=== PATIENT | male | born 1960 | race Two or more races ===

== ENCOUNTER 2023-09-28 19:29 | Emergency (ER) | payer MEDICAID, SELFPAY ==
[2023-09-28 19:37] VITALS: BP 160/90; PULSE 62; RESP 20; TEMP 36.9; O2SAT 95; BMI 19.2
--- NOTE | 2023-09-28 19:37 | ED_ITS ---
HPI - SOB/Dyspnea General Chief Complaint: Dyspnea Stated Complaint: sob hx asthma/copd Time Seen by Provider: 09/28/23 20:46 Source: patient Mode of arrival: ambulatory Limitations: no limitations History of Present Illness ED Provider: Dr. Ulises Daniel HPI Narrative: 62-year-old male with a history of COPD who presents emergency department for evaluation of shortness of breath and chest tightness x2 days. The patient states that he feels short of breath at rest and short of breath with exertion. He states that he feels fatigued, he is myalgias and arthralgias. He denied fever, chills, rhinorrhea, sore throat, cough, nausea, vomiting or diarrhea. Patient states that he has been using his inhalers in his nebulizer with only minimal improvement of his symptoms. Patient continues to smoke 3-4 cigarettes per day. Related Data Previous Rx's ?Medication ?Instructions ?Recorded prednisone 20 mg tablet 60 mg (3 x 20 mg) PO DAILY 5 days 09/28/23 #15 tabs Allergies Allergy/AdvReac Type Severity Reaction Status Date / Time No Known Allergies Allergy Verified 09/28/23 19:39 Review of Systems 2 Review of Systems: Yes all other systems are reviewed and are negative [facility] Past Medical History [facility] Narrative: Social history: He smokes 3-4 cigarettes per day. He denies tobacco use. He denies alcohol use. Social History Social History Unable to assess alcohol history related to: Unknown Physical Exam 2 Vital Signs: Vital Signs: Last Vital Signs Temp 98.1 F 09/28/23 20:25 Pulse 59 09/28/23 20:25 Resp 18 09/28/23 20:25 BP 160/89 H 09/28/23 20:25 Pulse Ox 97 09/28/23 20:25 O2 Del Method Room Air 09/28/23 20:25 BMI result Body Mass Index 19.2 Vital signs revealed an elevated blood pressure of 160/89 otherwise unremarkable Exam: General: Awake, alert in no distress Head: Normocephalic, atraumatic EENT: Right eye prosthesis, left eye pupil is 4 mm reactive to light, Lids normal, sclera normal, conjunctiva normal, nose normal , ears normal, throat without erythema or exudates Neck: Supple, no adenopathy Lung: Breath sounds symmetric bilaterally, good inspiratory and expiratory flow, wheezing with expiration, no rales or rhonchi Chest: symmetric movement, nontender Heart: regular rate and rhythm, normal S1, S2 no murmurs or rubs Abdomen: soft, non-tender, nondistended, normal bowel sounds Back: no vertebral tenderness, no CVAT Extremities: no deformities, moves all extremities symmetrically Neuro: Awake, alert, oriented, normal speech, moves all extremities symmetrically Psych: Pleasant, cooperative Course Course Course Narrative: This is a Rapid Medical Examination (RME) performed by Nicho Do PA-C in triage. Full HPI, ROS, assessment and treatment plan per primary provider in the Main ED. 62 yo male with history of asthma/COPD, active smoker who presents to the ER for evaluation of SOB and PND for the last 2 days. Did not sleep last night due to SOB when laying down and trying to fall asleep. Cough productive of white phlegm that is unchanged from baseline. No fever, chills, N/V/D, abdominal pain or chest pain. On exam patient is in no distress, speaking in complete sentences. He has expiratory wheezes at the bilateral bases only. RRR. no peripheral edema. Plan: CXR, EKG, labs, viral swab Medications Administered Discontinued Medications Generic Name Dose Route Start Last Admin Trade Name Freq PRN Reason Stop Dose Admin Prednisone 60 mg 09/28/23 20:56 09/28/23 21:00 Prednisone 20 Mg Tablet PO 09/28/23 20:57 60 mg ONCE ONE Administration Medical Decision Making Medical Decision Making [facility] Narrative: 62-year-old male with history of COPD who presents emergency department for evaluation of 2 days of shortness of breath, chest tightness, fatigue, myalgias, arthralgias, using his nebulizer and albuterol inhaler more frequently with no relief of his symptoms. Vital signs revealed an elevated blood pressure. Physical examination revealed wheezing at end expiration with symmetric breath sounds and good inspiratory and expiratory flow. Differential diagnosis: ?Includes but is not limited to COPD exacerbation, pneumonia, bronchitis, viral syndrome, COVID-19, influenza, RSV Following evaluation was ordered: CBC, CMP, urinalysis, COVID-19, influenza, RSV Patient was initially treated with the following: Prednisone 60 mg orally Course: 21:03 My interpretation patient's laboratory evaluation as follows: CBC was normal. CMP revealed an elevated glucose of 152. COVID-19, influenza and RSV were negative. Urinalysis was negative. Patient's presentation physical findings are consistent with COPD exacerbation most likely secondary to environmental allergy/pollen and recent rain. I did discuss this with the patient. Patient was given prednisone 60 mg orally and started on prednisone 60 mg once a day for 5 days. She was advised to continue using his albuterol inhalers in his other inhalers as prescribed by his provider. He was given printed and verbal instructions discharged home. Admission/Observation Consideration of admission/observation: Escalation of care including admission/observation considered Lab Data MDM Lab Attestation statement: I reviewed the patient's lab results. 09/28/23 19:53 09/28/23 19:53 Labs: Lab Results 09/28/23 09/28/23 Range/Units 19:53 20:33 WBC 6.0 (4.8-10.8) X10*3/uL RBC 4.57 L (4.60-5.80) X10*6/uL Hgb 13.9 L (14.0-18.0) g/dl Hct 40.7 L (42.0-52.0) % MCV 89.1 (80.0-98.0) fL MCH 30.4 (27.0-33.0) pg MCHC 34.2 (31.0-36.0) g/dl RDW 12.7 (11.0-16.0) % Plt Count 199 (160-400) X10*3/uL MPV 9.3 L (9.4-12.4) fL Immature Gran % (Auto) 0.2 (0.0-0.4) % Neut % (Auto) 60.7 (45-73) % Lymph % (Auto) 22.4 (20-40) % [place] % (Auto) 6.0 (2-11) % Eos % (Auto) 10.2 H (0-4) % Baso % (Auto) 0.5 (0-2) % Lymph # (Auto) 1.3 (1.2-4.9) X10*3/uL [place] # (Auto) 0.4 (0.1-1.2) X10*3/uL Eos # (Auto) 0.6 H (0.0-0.4) X10*3/uL Baso # (Auto) 0.0 (0.0-0.2) X10*3/uL Abs Immat Gran (auto) 0.01 (0.00-0.03) X10*3/uL Absolute Neuts (auto) 3.6 (2.0-8.3) x10*3/uL Absolute Nucleated RBC 0.000 (0.0-0.012) X10*3/uL Nucleated RBC % (auto) 0.0 (0.0-0.2) /100WBC Sodium 140 (135-145) mmol/L Potassium 3.4 (3.3-5.1) mmol/L Chloride 109 H (96-108) mmol/L Carbon Dioxide 23 (22-29) mmol/L Anion Gap 11 L (12-20) BUN 12 (9-16) mg/dL Creatinine 0.83 (0.5-1.4) mg/dL Estim Creat Clear Calc 76.1 Estimated GFR > 60 Random Glucose 152 H (60-115) mg/dL Calcium 9.3 (8.4-10.2) mg/dL Magnesium 2.1 (1.6-2.6) mg/dL Total Bilirubin 0.5 (0.0-1.0) mg/dL Direct Bilirubin 0.2 (0.0-0.5) mg/dL AST 33 (5-37) U/L ALT 37 (0-40) U/L Alkaline Phosphatase 86 (39-117) U/L Troponin I High Sens 4.1 (<3.5-35.0) ng/L B-Natriuretic Peptide 53 (<100) pg/mL Total Protein 6.3 L (6.5-8.0) g/dL Albumin 4.0 (3.5-5.0) g/dL Urine Color Yellow Urine Appearance Clear Urine pH 6.0 (5.0-9.0) Ur Specific [place] 1.020 (1.005-1.025) Urine Protein Negative (Neg-Trace) mg/dL Urine Glucose (UA) Negative (Negative) mg/dL Urine Ketones Negative (Negative) mg/dL Urine Blood Negative (Negative) Urine Nitrite Negative (Negative) Ur Leukocyte Esterase Negative (Negative) Influenza Type A (PCR) NEGATIVE (Negative) Influenza Type B (PCR) NEGATIVE (Negative) RSV RNA Qual (PCR) NEGATIVE (Negative) SARS-CoV-2 RNA (RT-PCR) NEGATIVE (Negative) Independent Interpretation I performed an independent interpretation of an: EKG Interpretation: My interpretation patient's 12 EKG done at 19:42 hours is as follows: Normal sinus rhythm rate of 61, normal MS interval, QRS duration elevated at 100, QTC interval normal, no ST segment elevation, no ST segment depression, no significant T-wave abnormalities, R/R prime complex V1 V2 Prescription Management I considered prescription management with: Other (Anti-inflammatory steroids, prednisone) Chronic Conditions Patient?s care impacted by: Other (COPD, tobacco use disorder) Discharge Plan Discharge Clinical Impression: Acute exacerbation of chronic obstructive airways disease Patient Disposition: Home, Self-Care Instructions: COPD (Chronic Obstructive Pulmonary Disease) (ED) Additional Instructions: Your blood work was unremarkable. Your COVID-19, influenza and RSV tests were negative Take prednisone 20 mg pills, 3 pills once a day for 5 days. While you ?are taking prednisone, do not take any NSAIDs (Motrin, Advil, ibuprofen, Aleve, naproxen). Follow-up with your doctor in 2 days. Please return to the emergency department if your symptoms get worse or if you develop any symptoms that are concerning to you. Prescriptions: New prednisone 20 mg tablet 60 mg PO DAILY 5 Days Qty: 15 0RF
--- NOTE | 2023-09-28 19:40 | ECG_ITS ---
Test Reason : DYSPNEA Blood Pressure : / mmHG Vent. Rate : 061 BPM Atrial Rate : 061 BPM P-R Int : 148 ms QRS Dur : 100 ms QT Int : 416 ms P-R-T Axes : 025 077 074 degrees QTc Int : 418 ms Normal sinus rhythm Incomplete right bundle branch block Borderline ECG No previous ECGs available Referred By: Yasemin Do Electronically Signed By:ARLENE SANDHU MD
[2023-09-28 19:58] LABS: MANUAL DIFF FLAG NO
[2023-09-28 20:00] LABS: Basophils Percent Auto 0.5 % (0-2); Eosinophils Absolute Auto 0.6 X10*3/uL (0.0-0.4); Eosinophils Percent Auto 10.2 % (0-4); Hematocrit 40.7 % (42.0-52.0); Hemoglobin 13.9 g/dl (14.0-18.0); Imm Gran Abs Auto 0.01 X10*3/uL (0.00-0.03); Imm Gran Pct Auto 0.2 % (0.0-0.4); Lymphocytes Absolute Auto 1.3 X10*3/uL (1.2-4.9); Lymphocytes Percent Auto 22.4 % (20-40); Mean Corpuscular HGB Conc 34.2 g/dl (31.0-36.0); Mean Corpuscular Hemoglobin 30.4 pg (27.0-33.0); Mean Corpuscular Volume 89.1 fL (80.0-98.0); Mean Platelet Volume 9.3 fL (9.4-12.4); Monocytes Absolute Auto 0.4 X10*3/uL (0.1-1.2); Neutrophils Absolute Auto 3.6 x10*3/uL (2.0-8.3); Neutrophils Percent Auto 60.7 % (45-73); Platelet Count 199 X10*3/uL (160-400); Red Blood Count 4.57 X10*6/uL (4.60-5.80); Red Cell Distribution Width 12.7 % (11.0-16.0)
[2023-09-28 20:19] LABS: Alanine Aminotransferase 37 U/L (0-40); Alkaline Phosphatase 86 U/L (39-117); Anion Gap 11 (12-20); Aspartate Amino Transferase 33 U/L (5-37); Bilirubin Direct 0.2 mg/dL (0.0-0.5); Bilirubin Total 0.5 mg/dL (0.0-1.0); Blood Urea Nitrogen 12 mg/dL (9-16); Calcium 9.3 mg/dL (8.4-10.2); Carbon Dioxide 23 mmol/L (22-29); Chloride 109 mmol/L (96-108); Creatinine Clr Calc Pharmacy 76.1; Estimated Glomerular Filt Rate > 60; Glucose Random 152 mg/dL (60-115); Magnesium 2.1 mg/dL (1.6-2.6); Potassium 3.4 mmol/L (3.3-5.1); Sodium 140 mmol/L (135-145); Total Protein 6.3 g/dL (6.5-8.0)
[2023-09-28 20:21] LABS: B Type Natriuretic Peptide 53 pg/mL (<100)
[2023-09-28 20:25] VITALS: BP 160/89; PULSE 59; RESP 18; TEMP 36.7; O2SAT 97
[2023-09-28 20:25] LABS: Troponin-I High Sensitivity 4.1 ng/L (<3.5-35.0)
[2023-09-28 20:38] LABS: Influenza A PCR NEGATIVE (Negative); Influenza B PCR NEGATIVE (Negative); Resp Syncy Virus RNA Qual PCR NEGATIVE (Negative); SARS COV2 PCR INHOUSE NEGATIVE (Negative)
[2023-09-28 20:41] LABS: Appearance Urine Clear; Color Urine Yellow; Glucose Urine UA Negative (Negative); Leukocyte Esterase Urine Negative (Negative); Nitrite Urine Negative (Negative); Urine Blood Negative (Negative); Urine Ketones Negative (Negative); Urine Protein Negative (Neg-Trace)
[2023-09-28] MEDS: predniSONE 20 MG TABLET 60 MG PO (21:00)
[2023-09-28 21:02] VITALS: BP 160/89; PULSE 59; RESP 18; TEMP 36.7; O2SAT 97
== END 2023-09-28 21:11 | disposition home or self-care (01) ==
LOC: HO.ED 21:07
PROVIDERS: Physician Assistant; Emergency Provider Emergency Medicine Emergency Medical Services; PCP Physician Assistant
DX: J44.1 Chronic obstructive pulmonary disease with (acute) exacerbation (principal); R06.02 Shortness of breath; R05.9 Cough, unspecified; F17.210 Nicotine dependence, cigarettes, uncomplicated; Z03.818 Encounter for observation for suspected exposure to other biological agents ruled out
CPT/HCPCS: 0241U; 36415; 80048; 80076; 81003; 83735; 83880; 84484; 85025; 93005; 99283; 99284

== ENCOUNTER → 2023-09-28 19:40 | Outpatient (BNV) | payer MEDICAID, SELFPAY | PROVIDERS: Emergency Provider Emergency Medicine Emergency Medical Services; PCP Physician Assistant; Visit Provider Internal Medicine Cardiovascular Disease | DX: R06.09 Other forms of dyspnea (principal); I45.19 Other right bundle-branch block; R94.31 Abnormal electrocardiogram [ECG] [EKG] | CPT/HCPCS: 93010 ==

== ENCOUNTER 2023-11-19 06:46 | Emergency (ER) | payer MEDICAID, SELFPAY ==
--- NOTE | ~2023-11-19 | XR_ITS ---
EXAMINATION: XR CHEST CLINICAL INFORMATION: Shortness of breath COMPARISON: None available. TECHNIQUE: 2 views of the chest were obtained. FINDINGS: vascularity. LUNGS: Lungs are hyperinflated. A tiny teardrop shaped subtle density is seen in lateral left lung base. No pneumothorax is seen. BONES: Bony skeleton is intact. XR/XR chest 2V IMPRESSION: 1. Hyperinflation of lungs, suggestive of emphysematous COPD. 2. Tiny teardrop shaped subtle density in lateral left lung base, may represent focal airspace disease or lung nodule. Follow-up PA and lateral chest x-ray in 2-3 weeks is recommended.
[2023-11-19 06:50] VITALS: BP 149/101; PULSE 82; RESP 22; TEMP 36.8; O2SAT 95; BMI 18.8
--- NOTE | 2023-11-19 07:05 | PC.NURSE ---
Pt reports SOB since Saturday worsening, has hx of asthma/COPD, used inhalers/neb at home with minimal relief. Denies fevers, N/V/D, recent illnesses. Reports right shoulder area pain that started this weekend after sweeping floor, hurts on movement. Alert and oriented, breathing even and unlabored while at rest in bed. NSR on bedside private wealth advisor, >94% sat. LS diminished with inspiratory wheeze bilat.
--- NOTE | 2023-11-19 07:11 | ED_ITS ---
HPI - SOB/Dyspnea General Chief Complaint: Dyspnea Stated Complaint: Asthma/Copd sob Time Seen by Provider: 11/19/23 07:10 Source: patient Mode of arrival: ambulatory Limitations: no limitations History of Present Illness ED Provider: DR. Anderson HPI Narrative: 63-year-old male active smoker with history of asthma/COPD not on home supplemental oxygen, presented today with difficulty breathing and chest tightness for the past few days associated with productive with clear sputum, no known exposure to a sick contacts, travel, extremity tenderness, no history of PE/DVT. Patient have used his bronchodilator at with no relief of his symptoms. Patient has no chest pain but describes diffuse chest tightness. No fever or chills. Related Data Previous Rx's ?Medication ?Instructions ?Recorded prednisone 20 mg tablet 60 mg (3 x 20 mg) PO DAILY 5 days 09/28/23 #15 tabs albuterol sulfate 2.5 mg/3 mL 2.5 mg (3 mL) inhalation Q6H PRN 11/19/23 (0.083 %) solution for nebulization shortness of breath or wheezing #75 mL albuterol sulfate 90 mcg/actuation 1 inh inhalation QID PRN shortness 11/19/23 aerosol inhaler of breath or wheezing #8.5 grams azithromycin 250 mg tablet See Rx Instructions PO .COMPLEX #6 11/19/23 (Zithromax Z-Isai) tabs prednisone 20 mg tablet 20 mg PO BID #10 tabs 11/19/23 Allergies Allergy/AdvReac Type Severity Reaction Status Date / Time No Known Allergies Allergy Verified 11/19/23 06:50 Review of Systems 2 Review of Systems: All other systems are reviewed and are negative Constitutional: Reports as per HPI and Reports no additional constitutional complaints Eyes: Reports as per HPI and Reports no additional eye complaints Reports system reviewed and no additional complaints, except as documented Cardiovascular: Reports as per HPI and Reports no additional cardiovascular complaints Respiratory: Reports as per HPI and Reports no additional respiratory complaints Gastrointestinal: Reports as per HPI and Reports no additional gastrointestinal complaints Genitourinary: Reports no additional female genitourinary complaints Musculoskeletal: Reports no additional musculoskeletal complaints Skin/Breast: Reports system reviewed and no additional complaints, except as docu Psychiatric: Reports no additional psychiatric complaints Endocrine: Reports no additional endocrine complaints Hematologic/Lymphatic: Reports no additional hematologic/lymphatic complaints Allergic/Immunologic: Reports no additional allergic/immunologic complaints Reports system reviewed and no additional complaints, except as documented and Reports Abnormal speech present [facility] Social History Social History Unable to assess alcohol history related to: Unknown Smoked in Last 30 Days: Yes Use of substances other than those prescribed or required for medical reasons: No Advance Directives: No Physical Exam 2 Vital Signs: Vital Signs: Last Vital Signs Temp 98.5 F 11/19/23 08:08 Pulse 63 11/19/23 08:14 Resp 12 11/19/23 08:14 BP 172/88 H 11/19/23 08:08 Pulse Ox 96 11/19/23 08:08 O2 Del Method Room Air 11/19/23 08:08 BMI result Body Mass Index 18.8 Vital signs have been reviewed and appear to be correct. Blood pressure elevated. Heart rate normal. Respiratory rate normal. Temperature normal. Oxygen saturation normal. Appearance: Alert. Oriented X3. No acute distress. Head: Normal external exam. Normocephalic. Atraumatic. No Mont[place]ayor signs noted. No raccoon eyes noted Eyes: PERRLA. EOMI. Conjunctiva and sclera normal. Eyelids normal. ENT: TM's Normal. Pharynx normal. Uvula midline. Moist mucous membranes. No trismus noted. No drooling noted. No muffled voice noted. Neck: Normal inspection. Neck supple. FROM. No adenopathy. Thyroid Normal. No meningeal signs. No neck mass noted. CVS: Normal heart rate and rhythm. Heart sound normal. No murmurs noted. Pulses normal throughout. Respiratory: No respiratory distress. Painless inspiration. Breath sounds normal. Diffuse expiratory wheezing with prolonged expiration Chest nontender. No accessory muscle usage noted or decreased air movement noted. Abdomen: Soft and nontender. Bowel sounds normal in all 4 quadrants. No distention noted. No organomegaly noted. No visible injury noted. Back: No CVA tenderness. Full range of motion noted. Skin: Skin warm and dry. Normal skin color. Normal skin turgor. No rashes/lesions/lacerations noted. Extremities: No lower extremity edema. Extremities exhibit normal range of motion. Extremities nontender. Neuro: Oriented X 3. Cranial nerve exam: II-XII are grossly intact No motor deficit. No sensory deficit. Reflexes normal. Course Reevaluation(s) Reevaluation #1: 63-year-old smoker with history of COPD/asthma patient feels better with bronchodilator, Solu-Medrol, and magnesium. Will discharge short course of prednisone x5 days, a course of the back and continue with bronchodilator. X-ray is showing small left lung mass repeat x-ray is recommended it to 3 weeks these finding was discussed with the patient patient fully understand he needs to repeat x-ray via his PCP. Time: 10:00 Medications Administered Discontinued Medications Generic Name Dose Route Start Last Admin Trade Name Freq PRN Reason Stop Dose Admin Albuterol Sulfate 2.5 mg/ 5 mg 11/19/23 08:06 11/19/23 08:11 Albuterol Sulfate 2.5 mg INHALE 11/19/23 08:07 5 mg ONCE ONE Administration Magnesium Sulfate 2 gm in 50 mls @ 25 mls/hr 11/19/23 07:15 11/19/23 08:57 Magnesium Sulfate/H2o IV 11/19/23 09:14 Infused ONCE ONE Infusion Methylprednisolone Sodium Succinate 125 mg 11/19/23 07:15 11/19/23 07:33 Methylprednisolone Sod Succ 125 Mg/2 Ml Vial IVPUSH 11/19/23 07:16 125 mg ONCE ONE Administration Medical Decision Making Differential Diagnosis Differential Diagnoses: The differential diagnosis associated with the presentation includes (Asthma exacerbation, COPD exacerbation, pneumonia, pneumothorax, pleural effusion, pulmonary embolism, ACS, CHF, electrolyte derangement, severe anemia.) Admission/Observation Consideration of admission/observation: Escalation of care including admission/observation considered Lab Data MDM Lab Attestation statement: I reviewed the patient's lab results. 11/19/23 07:38 11/19/23 07:38 Labs: Lab Results 11/19/23 Range/Units 07:38 WBC 6.5 (4.8-10.8) X10*3/uL RBC 4.50 L (4.60-5.80) X10*6/uL Hgb 14.0 (14.0-18.0) g/dl Hct 39.8 L (42.0-52.0) % MCV 88.4 (80.0-98.0) fL MCH 31.1 (27.0-33.0) pg MCHC 35.2 (31.0-36.0) g/dl RDW 12.8 (11.0-16.0) % Plt Count 195 (160-400) X10*3/uL MPV 9.9 (9.4-12.4) fL Immature Gran % (Auto) 0.2 (0.0-0.4) % Neut % (Auto) 56.4 (45-73) % Lymph % (Auto) 23.1 (20-40) % [place] % (Auto) 6.8 (2-11) % Eos % (Auto) 12.7 H (0-4) % Baso % (Auto) 0.8 (0-2) % Lymph # (Auto) 1.5 (1.2-4.9) X10*3/uL [place] # (Auto) 0.4 (0.1-1.2) X10*3/uL Eos # (Auto) 0.8 H (0.0-0.4) X10*3/uL Baso # (Auto) 0.1 (0.0-0.2) X10*3/uL Abs Immat Gran (auto) 0.01 (0.00-0.03) X10*3/uL Absolute Neuts (auto) 3.7 (2.0-8.3) x10*3/uL Absolute Nucleated RBC 0.000 (0.0-0.012) X10*3/uL Nucleated RBC % (auto) 0.0 (0.0-0.2) /100WBC D-Dimer High Sensitivty < 150 NG/ML Sodium 140 (135-145) mmol/L Potassium 3.9 (3.3-5.1) mmol/L Chloride 105 (96-108) mmol/L Carbon Dioxide 28 (22-29) mmol/L Anion Gap 11 L (12-20) BUN 12 (9-16) mg/dL Creatinine 0.79 (0.5-1.4) mg/dL Estim Creat Clear Calc 77.0 Estimated GFR > 60 Random Glucose 110 (60-115) mg/dL Calcium 9.4 (8.4-10.2) mg/dL Total Bilirubin 0.7 (0.0-1.0) mg/dL Direct Bilirubin 0.3 (0.0-0.5) mg/dL AST 19 (5-37) U/L ALT 24 (0-40) U/L Alkaline Phosphatase 72 (39-117) U/L Troponin I High Sens 3.1 (<3.5-35.0) ng/L B-Natriuretic Peptide 34 (<100) pg/mL Total Protein 6.2 L (6.5-8.0) g/dL Albumin 4.0 (3.5-5.0) g/dL Lipase 16 (8-78) U/L Influenza Type A (PCR) NEGATIVE (Negative) Influenza Type B (PCR) NEGATIVE (Negative) RSV RNA Qual (PCR) NEGATIVE (Negative) SARS-CoV-2 RNA (RT-PCR) NEGATIVE (Negative) Independent Interpretation I performed an independent interpretation of an: Plain X-Ray (Chest: No acute intrathoracic pathology.) Radiology Impression Discussion of test interpretation with radiology: I have reviewed the radiologist's reading. Chronic Conditions Patient?s care impacted by: Other (Active smoking, history of COPD.) Discharge Plan Discharge Clinical Impression: Acute exacerbation of chronic obstructive airways disease, Nodule of left lung Patient Disposition: Home, Self-Care Instructions: COPD (Chronic Obstructive Pulmonary Disease) (ED) Prescriptions: New prednisone 20 mg tablet 20 mg PO BID Qty: 10 0RF azithromycin [Zithromax Z-Isai] 250 mg tablet See Rx Instructions .ROUTE .COMPLEX Qty: 6 0RF Rx Instructions: For 250 mg dose pack: take 500 mg today (day 1), then 250 mg for 4 days (days 2-5) albuterol sulfate 90 mcg/actuation HFA aerosol inhaler 1 inh inhalation QID PRN (Reason: shortness of breath or wheezing) Qty: 8.5 0RF albuterol sulfate 2.5 mg /3 mL (0.083 %) solution for nebulization 2.5 mg inhalation Q6H PRN (Reason: shortness of breath or wheezing) Qty: 75 0RF No Action prednisone 20 mg tablet 60 mg PO DAILY 5 Days Qty: 15 0RF Referrals: Daniel Maria PA [Primary Care Provider] - Print Language: British
--- NOTE | 2023-11-19 07:16 | ECG_ITS ---
Test Reason : SOB Blood Pressure : / mmHG Vent. Rate : 065 BPM Atrial Rate : 065 BPM P-R Int : 144 ms QRS Dur : 100 ms QT Int : 396 ms P-R-T Axes : 000 128 110 degrees QTc Int : 411 ms Limb lead reversal Normal sinus rhythm Right axis deviation Incomplete right bundle branch block Nonspecific ST abnormality Abnormal ECG When compared with ECG of 28-SEP-2023 19:42, QRS axis Shifted right Referred By: Khang Anderson Electronically Signed By:Toby Marin
[2023-11-19] MEDS: methylPREDNISolone Sod Succ 125 MG/2 ML VIAL IVPUSH (07:33)
[2023-11-19] MEDS: Magnesium Sulfate/H2O 2 GM/50 ML PIGGYBACK IV (07:33)
[2023-11-19 07:43] LABS: MANUAL DIFF FLAG NO
[2023-11-19 07:44] LABS: Basophils Absolute Auto 0.1 X10*3/uL (0.0-0.2); Basophils Percent Auto 0.8 % (0-2); Eosinophils Absolute Auto 0.8 X10*3/uL (0.0-0.4); Eosinophils Percent Auto 12.7 % (0-4); Hematocrit 39.8 % (42.0-52.0); Imm Gran Abs Auto 0.01 X10*3/uL (0.00-0.03); Imm Gran Pct Auto 0.2 % (0.0-0.4); Lymphocytes Absolute Auto 1.5 X10*3/uL (1.2-4.9); Lymphocytes Percent Auto 23.1 % (20-40); Mean Corpuscular HGB Conc 35.2 g/dl (31.0-36.0); Mean Corpuscular Hemoglobin 31.1 pg (27.0-33.0); Mean Corpuscular Volume 88.4 fL (80.0-98.0); Mean Platelet Volume 9.9 fL (9.4-12.4); Monocytes Absolute Auto 0.4 X10*3/uL (0.1-1.2); Monocytes Percent Auto 6.8 % (2-11); Neutrophils Absolute Auto 3.7 x10*3/uL (2.0-8.3); Neutrophils Percent Auto 56.4 % (45-73); Platelet Count 195 X10*3/uL (160-400); Red Cell Distribution Width 12.8 % (11.0-16.0); White Blood Count 6.5 X10*3/uL (4.8-10.8)
[2023-11-19 07:52] LABS: D Dimer High Sensitivity < 150 NG/ML
[2023-11-19 07:58] LABS: Alanine Aminotransferase 24 U/L (0-40); Alkaline Phosphatase 72 U/L (39-117); Anion Gap 11 (12-20); Aspartate Amino Transferase 19 U/L (5-37); Bilirubin Direct 0.3 mg/dL (0.0-0.5); Bilirubin Total 0.7 mg/dL (0.0-1.0); Blood Urea Nitrogen 12 mg/dL (9-16); Calcium 9.4 mg/dL (8.4-10.2); Carbon Dioxide 28 mmol/L (22-29); Chloride 105 mmol/L (96-108); Estimated Glomerular Filt Rate > 60; Glucose Random 110 mg/dL (60-115); Lipase 16 U/L (8-78); Potassium 3.9 mmol/L (3.3-5.1); Sodium 140 mmol/L (135-145); Total Protein 6.2 g/dL (6.5-8.0)
[2023-11-19 08:04] LABS: B Type Natriuretic Peptide 34 pg/mL (<100)
[2023-11-19 08:05] LABS: Troponin-I High Sensitivity 3.1 ng/L (<3.5-35.0)
[2023-11-19 08:08] VITALS: BP 172/88; PULSE 68; RESP 18; TEMP 36.9; O2SAT 96
[2023-11-19] MEDS: Albuterol Sulfate 2.5 MG, Albuterol Sulfate (0.083%) 2.5 MG 5 MG INHALE (08:11)
[2023-11-19 08:14] VITALS: PULSE 63; RESP 12; O2SAT 96
[2023-11-19 09:34] LABS: Influenza A PCR NEGATIVE (Negative); Influenza B PCR NEGATIVE (Negative); Resp Syncy Virus RNA Qual PCR NEGATIVE (Negative); SARS COV2 PCR INHOUSE NEGATIVE (Negative)
[2023-11-19 09:49] LABS: Appearance Urine Clear; Color Urine Yellow; Glucose Urine UA Negative (Negative); Leukocyte Esterase Urine Negative (Negative); Nitrite Urine Negative (Negative); PH 7.5 (5.0-9.0); Urine Blood Negative (Negative); Urine Ketones Negative (Negative); Urine Protein Negative (Neg-Trace)
[2023-11-19 10:00] VITALS: BP 154/88; PULSE 75; RESP 16; TEMP 36.8; O2SAT 93
[2023-11-19 11:45] VITALS: BP 140/81; PULSE 74; RESP 16; TEMP 36.8; O2SAT 95
== END 2023-11-19 11:51 | disposition home or self-care (01) ==
PROVIDERS: Emergency Provider Emergency Medicine; PCP Physician Assistant
DX: J44.1 Chronic obstructive pulmonary disease with (acute) exacerbation (principal); R06.02 Shortness of breath; R91.1 Solitary pulmonary nodule; R94.31 Abnormal electrocardiogram [ECG] [EKG]; Z03.818 Encounter for observation for suspected exposure to other biological agents ruled out; Z79.899 Other long term (current) drug therapy
CPT/HCPCS: 0241U; 36415; 71046; 80048; 80076; 81003; 83690; 83880; 84484; 85025; 85379; 93005; 94640; 96365; 96366; 96375; 99284; 99285; J2919; J3475

== ENCOUNTER → 2023-11-19 07:16 | Outpatient (BNV) | payer MEDICAID, SELFPAY | PROVIDERS: Emergency Provider Emergency Medicine; PCP Physician Assistant; Visit Provider Internal Medicine Cardiovascular Disease | DX: R06.02 Shortness of breath (principal); I45.19 Other right bundle-branch block; R94.31 Abnormal electrocardiogram [ECG] [EKG] | CPT/HCPCS: 93010 ==

== ENCOUNTER 2023-12-26 08:24 | Emergency (ER) | payer OTHER, SELFPAY ==
--- NOTE | ~2023-12-26 | CT_ITS ---
EXAMINATION: CT ANGIOGRAM OF THE CHEST WITH AND WITHOUT CONTRAST (CT PULMONARY ANGIOGRAM FOR PE) CLINICAL INFORMATION: sob COMPARISON: CT low dose TECHNIQUE: Prior to contrast administration, noncontrast localization images were obtained. Subsequently, multidetector volumetric imaging was performed from the thoracic inlet to the pubic symphysis through the chest, abdomen, and pelvis following the administration of 80 mL Omnipaque 350 intravenous contrast. No contrast reaction reported Sagittal, coronal, and MIP oblique sagittal (through the chest only) reformatted images were obtained on the CT workstation, uploaded to PACS, and reviewed. This CT examination was performed using dose optimization techniques as appropriate, variously including the following: *Automated exposure control *Adjustment of mA and/or kV according to patient size (this includes techniques or standardized protocols for targeted exams where dose is matched to indication/reason for exam; i.e. extremities or head) *Use of iterative reconstruction technique Total exam dose-length product: 350p mGy-cm FINDINGS: QUALITY OF STUDY/CONTRAST BOLUS: Satisfactory. PULMONARY ARTERIES: No central or segmental pulmonary emboli. THORACIC AORTA: No aneurysm or dissection. LUNG: No focal consolidation, nodules or masses. PLEURA: No pleural effusion or pneumothorax. MEDIASTINUM: Normal heart size. No pericardial effusion. No hilar or mediastinal lymphadenopathy. No evidence of septal bowing or right heart strain. CHEST WALL/AXILLA: No axillary or internal mammary lymphadenopathy. OSSEOUS STRUCTURES: No acute or suspicious osseous abnormality. VISUALIZED ABDOMEN: No significant findings in the upper abdomen. There are a few scattered hepatic hypodensities seen, the largest measuring 1.2 cm consistent with benign hepatic cysts. A benign right upper pole parapelvic 3.5 cm Bosniak class I renal cyst is noted which requires no additional imaging or follow up. No solid renal masses are seen. CT/CT angio chest PE protocol IMPRESSION: No evidence of pulmonary emboli. VTE: negative. Fleischner guidelines were followed. Electronically signed by: Allen Luis MD 12/26/2023 11:22 AM EDT
--- NOTE | ~2023-12-26 | XR_ITS ---
EXAMINATION: XR CHEST CLINICAL INFORMATION: Shortness of breath. COMPARISON: Chest radiograph 11/19/2023. TECHNIQUE: 2 views of the chest were obtained. FINDINGS: Normal appearance of the cardiomediastinal silhouette. Redemonstration of mild hyperexpansion with diffuse interstitial prominence. No dense consolidation. No pleural effusion or pneumothorax. Redemonstration of very subtle focal reticulonodular opacity in the lateral left lung base. Thoracic a spondylolisthesis. No acute osseous findings. XR/XR chest 2V IMPRESSION: 1. Redemonstration of very subtle reticulonodular opacity in the lateral left lung base. Recommend correlation with a CT of the chest. 2. Persistent mild hyperexpansion and diffuse interstitial prominence suggesting air trapping and COPD/emphysema. 3. No dense consolidation. 4. No pleural effusion or pneumothorax. Electronically signed by: Addis Kim MD 12/26/2023 08:58 AM EDT
[2023-12-26 08:25] VITALS: BP 141/88; PULSE 86; RESP 18; TEMP 37.2; O2SAT 94; BMI 19.2
[2023-12-26 09:03] LABS: Basophils Absolute Auto 0.1 X10*3/uL (0.0-0.2); Basophils Percent Auto 1.2 % (0-2); Eosinophils Absolute Auto 1.4 X10*3/uL (0.0-0.4); Eosinophils Percent Auto 20.9 % (0-4); Hematocrit 40.4 % (42.0-52.0); Hemoglobin 13.8 g/dl (14.0-18.0); Imm Gran Abs Auto 0.02 X10*3/uL (0.00-0.03); Imm Gran Pct Auto 0.3 % (0.0-0.4); Lymphocytes Absolute Auto 1.4 X10*3/uL (1.2-4.9); Lymphocytes Percent Auto 20.7 % (20-40); MANUAL DIFF FLAG SCAN; Mean Corpuscular HGB Conc 34.2 g/dl (31.0-36.0); Mean Corpuscular Hemoglobin 30.9 pg (27.0-33.0); Mean Corpuscular Volume 90.6 fL (80.0-98.0); Mean Platelet Volume 9.7 fL (9.4-12.4); Monocytes Absolute Auto 0.5 X10*3/uL (0.1-1.2); Monocytes Percent Auto 7.2 % (2-11); Neutrophils Absolute Auto 3.4 x10*3/uL (2.0-8.3); Neutrophils Percent Auto 49.7 % (45-73); Platelet Count 197 X10*3/uL (160-400); Red Blood Count 4.46 X10*6/uL (4.60-5.80); Red Cell Distribution Width 12.5 % (11.0-16.0); SCAN SMEAR FLAG 1; White Blood Count 6.8 X10*3/uL (4.8-10.8)
--- NOTE | 2023-12-26 09:13 | ED.SOB ---
HPI - SOB/Dyspnea General Chief Complaint: Dyspnea Stated Complaint: SOB Time Seen by Provider: 12/26/23 09:11 Source: patient Mode of arrival: ambulatory Limitations: no limitations History of Present Illness ED Provider: Karuna MARIANO HPI Narrative: 63 year old male w/ self reported history of asthma, copd, obesity presents w/ shortness of breath since Saturday, 3 days ago. Patient reports shortness of breath that is worse with exertion better at rest. He denies associated chest pain, nausea, vomiting, abdominal pain, headache, vision changes, dizziness, weakness. Related Data Previous Rx's ?Medication ?Instructions ?Recorded prednisone 20 mg tablet 60 mg (3 x 20 mg) PO DAILY 5 days 09/28/23 #15 tabs albuterol sulfate 2.5 mg/3 mL 2.5 mg (3 mL) inhalation Q6H PRN 11/19/23 (0.083 %) solution for nebulization shortness of breath or wheezing #75 mL albuterol sulfate 90 mcg/actuation 1 inh inhalation QID PRN shortness 11/19/23 aerosol inhaler of breath or wheezing #8.5 grams azithromycin 250 mg tablet See Rx Instructions PO .COMPLEX #6 11/19/23 (Zithromax Z-Isai) tabs prednisone 20 mg tablet 20 mg PO BID #10 tabs 11/19/23 albuterol sulfate 90 mcg/actuation 2 inh inhalation Q4-6H PRN 12/26/23 breath activated powder inhaler shortness of breath or wheezing #1 ea doxycycline hyclate 100 mg capsule 100 mg PO BID 10 days #20 caps 12/26/23 prednisone 20 mg tablet 40 mg (2 x 20 mg) PO DAILY 5 days 12/26/23 #10 tabs Allergies Allergy/AdvReac Type Severity Reaction Status Date / Time No Known Allergies Allergy Verified 12/26/23 08:29 [facility] Social History Social History Unable to assess alcohol history related to: Unknown Smoked in Last 30 Days: Yes Advance Directives: No Advance Directives Information Provided: Yes Do you have a plan to hurt others: No Plan Physical Exam Vital Signs: Vital Signs: Last Vital Signs Temp 98.8 F 12/26/23 10:33 Pulse 65 12/26/23 10:38 Resp 11 L 12/26/23 10:38 BP 153/85 H 12/26/23 10:33 Pulse Ox 96 12/26/23 10:33 O2 Del Method Room Air 12/26/23 10:33 BMI result Body Mass Index 19.2 Appearance: Alert.? Oriented X3.? No acute distress.? Head: Normocephalic, atraumatic, no step-offs or deformities Eyes: Pupils equal, round and reactive to light.? ENT: Pharynx normal.? Neck: Normal inspection.? Neck supple.? CVS: Normal heart rate and rhythm.? Pulses normal.? Respiratory: No respiratory distress.? Breath sounds with mild expiratory wheezing bilaterally.? Abdomen: Soft and nontender.? Skin: Skin warm and dry.? Normal skin color.? Normal skin turgor.? Extremities: No lower extremity edema.? No calf ttp. 5/5 strength to bilateral upper and lower extremities Back: No midline tenderness, no C-spine tenderness, full range of motion, no CVA tenderness bilaterally Neuro: Oriented X 3.? No motor deficit.? No sensory deficit. CN 2-12 intact Course Reevaluation(s) Reevaluation #1: CBC with no acute findings eating intervention, normocytic baseline anemia noted. Chemistry with no acute findings needing intervention. Redemonstration of very subtle reticular nodular opacity in the lateral lung left base. CT of the chest ordered. Persistent mild hyperexpansion of diffuse interstitial prominence suggesting air trapping and COPD/emphysema. Troponin, BNP, CTA pending. Time: 10:01 Reevaluation #2: Troponin, BNP normal. EKG nonischemic unlikely ACS. Repeat troponin neagtive. CTA with no VTE. No acute findings on imaging. Will share results with patient will have him follow-up with PCP. This is likely chronic lung disease. Educated patient on diagnosis and treatment plan, answered all question, patient verbalizes understanding. At this time patient will be discharged home, advised to return with new or worsening symptoms. Educated on worrisome signs and symptoms and when to return. At this time I feel comfortable discharge home. Time: 11:48 Medications Administered Discontinued Medications Generic Name Dose Route Start Last Admin Trade Name Freq PRN Reason Stop Dose Admin Albuterol/Ipratropium 3 ml 12/26/23 09:59 12/26/23 10:37 Albuterol/Iprat 2.5/0.5mg 3 Ml Ampul.Neb INHALE 12/26/23 10:00 3 ml ONCE ONE Administration Dexamethasone Sodium Phosphate 10 mg 12/26/23 09:59 12/26/23 10:22 Dexamethasone Sod Phosphate 10 Mg/Ml Vial IVPUSH 12/26/23 10:00 10 mg ONCE ONE Administration Iohexol 100 ml 12/26/23 10:14 12/26/23 10:14 Iohexol 350 Mg/Ml 100 Ml Infus..Btl IV 12/26/23 10:15 65 ml ONCE ONE Administration Medical Decision Making Medical Decision Making [facility] Narrative: 63 year old male presents w/ exertional dyspnea X 1 week worsening PE- with mild expiratory wheezing bilaterally Hx and pe concerning for viral illness vs chronic lung disease. Less likely PE, ACS, dissection, PNA Plan- labs, imaging, viral test Differential Diagnosis Differential Diagnoses: The differential diagnosis associated with the presentation includes Hx and pe concerning for viral illness vs chronic lung disease. Less likely PE, ACS, dissection, PNA Admission/Observation Consideration of admission/observation: Escalation of care including admission/observation considered Lab Data [facility] Lab Attestation statement: I reviewed the patient's lab results. 12/26/23 08:53 12/26/23 08:53 Labs: Lab Results 12/26/23 12/26/23 12/26/23 Range/Units 08:53 09:25 11:08 WBC 6.8 (4.8-10.8) X10*3/uL RBC 4.46 L (4.60-5.80) X10*6/uL Hgb 13.8 L (14.0-18.0) g/dl Hct 40.4 L (42.0-52.0) % MCV 90.6 (80.0-98.0) fL MCH 30.9 (27.0-33.0) pg MCHC 34.2 (31.0-36.0) g/dl RDW 12.5 (11.0-16.0) % Plt Count 197 (160-400) X10*3/uL MPV 9.7 (9.4-12.4) fL Immature Gran % (Auto) 0.3 (0.0-0.4) % Neut % (Auto) 49.7 (45-73) % Lymph % (Auto) 20.7 (20-40) % [place] % (Auto) 7.2 (2-11) % Eos % (Auto) 20.9 H (0-4) % Baso % (Auto) 1.2 (0-2) % Lymph # (Auto) 1.4 (1.2-4.9) X10*3/uL [place] # (Auto) 0.5 (0.1-1.2) X10*3/uL Eos # (Auto) 1.4 H (0.0-0.4) X10*3/uL Baso # (Auto) 0.1 (0.0-0.2) X10*3/uL Abs Immat Gran (auto) 0.02 (0.00-0.03) X10*3/uL Absolute Neuts (auto) 3.4 (2.0-8.3) x10*3/uL Absolute Nucleated RBC 0.000 (0.0-0.012) X10*3/uL Nucleated RBC % (auto) 0.0 (0.0-0.2) /100WBC Smear Tech's Comments VERIFIED Hold Blue Top SEE NOTE Sodium 142 (135-145) mmol/L Potassium 3.4 (3.3-5.1) mmol/L Chloride 109 H (96-108) mmol/L Carbon Dioxide 26 (22-29) mmol/L Anion Gap 10 L (12-20) BUN 9 (9-16) mg/dL Creatinine 0.76 (0.5-1.4) mg/dL Estim Creat Clear Calc 81.8 Estimated GFR > 60 Random Glucose 104 (60-115) mg/dL Calcium 9.1 (8.4-10.2) mg/dL Magnesium 2.2 (1.6-2.6) mg/dL Total Bilirubin 0.4 (0.0-1.0) mg/dL AST 25 (5-37) U/L ALT 28 (0-40) U/L Alkaline Phosphatase 87 (39-117) U/L Troponin I High Sens 4.3 5.2 (<3.5-35.0) ng/L B-Natriuretic Peptide 22 (<100) pg/mL Total Protein 6.2 L (6.5-8.0) g/dL Albumin 4.0 (3.5-5.0) g/dL Influenza Type A (PCR) NEGATIVE (Negative) Influenza Type B (PCR) NEGATIVE (Negative) RSV RNA Qual (PCR) NEGATIVE (Negative) SARS-CoV-2 RNA (RT-PCR) NEGATIVE (Negative) Independent Interpretation I performed an independent interpretation of an: EKG, Plain X-Ray ( XR/XR chest 2V IMPRESSION: 1. Redemonstration of very subtle reticulonodular opacity in the lateral left lung base. Recommend correlation with a CT of the chest. 2. Persistent mild hyperexpansion and diffuse interstitial prominence suggesting air trapping and COPD/emphysema. 3. No dense consol) and CT Scan Radiology Impression Discussion of test interpretation with radiology: I have reviewed the radiologist's reading. External Record Review External record reviewed: Outpatient record Chronic Conditions Patient?s care impacted by: Other (COPD/ emphysema ) Critical Care Time Critical Care Time Critical Care Time: Yes Total Critical Care Time: 35 Attestation: I attest to this time spent taking care of the patient, obtaining history, physical, reviewing labs, imaging, treatment of patients condition +/- specialist/hospitalist consult Discharge Plan Discharge Clinical Impression: Chronic lung disease, Shortness of breath Patient Disposition: Home, Self-Care Instructions: How Your Lungs Work (ED), Shortness of Breath (ED) Additional Instructions: Take your medications as prescribed. If you were prescribed antibiotics today, it is important that you take your medication to their entirety, do not skip any doses, do not finish them early. Follow-up with your primary care provider this week. Return to the emergency department with new or worsening symptoms. Such as fevers, chills, chest pain, shortness of breath, nausea, vomiting, dizziness, headache, vision changes, lethargy In case of emergency call 911 FINDINGS: QUALITY OF STUDY/CONTRAST BOLUS: Satisfactory. PULMONARY ARTERIES: No central or segmental pulmonary emboli. THORACIC AORTA: No aneurysm or dissection. LUNG: No focal consolidation, nodules or masses. PLEURA: No pleural effusion or pneumothorax. MEDIASTINUM: Normal heart size. No pericardial effusion. No hilar or mediastinal lymphadenopathy. No evidence of septal bowing or right heart strain. CHEST WALL/AXILLA: No axillary or internal mammary lymphadenopathy. OSSEOUS STRUCTURES: No acute or suspicious osseous abnormality. VISUALIZED ABDOMEN: No significant findings in the upper abdomen. There are a few scattered hepatic hypodensities seen, the largest measuring 1.2 cm consistent with benign hepatic cysts. A benign right upper pole parapelvic 3.5 cm Bosniak class I renal cyst is noted which requires no additional imaging or follow up. No solid renal masses are seen. CT/CT angio chest PE protocol IMPRESSION: No evidence of pulmonary emboli. VTE: negative. Fleischner guidelines were followed. XR/XR chest 2V IMPRESSION: 1. Redemonstration of very subtle reticulonodular opacity in the lateral left lung base. Recommend correlation with a CT of the chest. 2. Persistent mild hyperexpansion and diffuse interstitial prominence suggesting air trapping and COPD/emphysema. 3. No dense consolidation. 4. No pleural effusion or pneumothorax. Prescriptions: New doxycycline hyclate 100 mg capsule 100 mg PO BID 10 Days Qty: 20 0RF albuterol sulfate 90 mcg/actuation aerosol powdr breath activated 2 inh inhalation Q4-6H PRN (Reason: shortness of breath or wheezing) Qty: 1 0RF prednisone 20 mg tablet 40 mg PO DAILY 5 Days Qty: 10 0RF No Action prednisone 20 mg tablet 60 mg PO DAILY 5 Days Qty: 15 0RF prednisone 20 mg tablet 20 mg PO BID Qty: 10 0RF azithromycin [Zithromax Z-Isai] 250 mg tablet See Rx Instructions .ROUTE .COMPLEX Qty: 6 0RF Rx Instructions: For 250 mg dose pack: take 500 mg today (day 1), then 250 mg for 4 days (days 2-5) albuterol sulfate 90 mcg/actuation HFA aerosol inhaler 1 inh inhalation QID PRN (Reason: shortness of breath or wheezing) Qty: 8.5 0RF albuterol sulfate 2.5 mg /3 mL (0.083 %) solution for nebulization 2.5 mg inhalation Q6H PRN (Reason: shortness of breath or wheezing) Qty: 75 0RF Referrals: Physician,Unknown J [Primary Care Provider] - 2 days Print Language: Kinyarwanda
[2023-12-26 09:23] LABS: Alanine Aminotransferase 28 U/L (0-40); Alkaline Phosphatase 87 U/L (39-117); Anion Gap 10 (12-20); Aspartate Amino Transferase 25 U/L (5-37); Bilirubin Total 0.4 mg/dL (0.0-1.0); Blood Urea Nitrogen 9 mg/dL (9-16); Calcium 9.1 mg/dL (8.4-10.2); Carbon Dioxide 26 mmol/L (22-29); Chloride 109 mmol/L (96-108); Creatinine Clr Calc Pharmacy 81.8; Estimated Glomerular Filt Rate > 60; Glucose Random 104 mg/dL (60-115); Magnesium 2.2 mg/dL (1.6-2.6); Potassium 3.4 mmol/L (3.3-5.1); Sodium 142 mmol/L (135-145); Total Protein 6.2 g/dL (6.5-8.0)
--- NOTE | 2023-12-26 09:31 | PC.NURSE ---
ambulated independently to room with steady gait. complaining of shortness of breath specifically with exertion. IV established, awaiting ct scan at this time. call hinton within reach
[2023-12-26 09:35] LABS: SLIDE REVIEW VERIFIED
[2023-12-26 09:40] LABS: Influenza A PCR NEGATIVE (Negative); Influenza B PCR NEGATIVE (Negative); Resp Syncy Virus RNA Qual PCR NEGATIVE (Negative); SARS COV2 PCR INHOUSE NEGATIVE (Negative)
--- NOTE | 2023-12-26 10:02 | ECG_ITS ---
Test Reason : sob Blood Pressure : / mmHG Vent. Rate : 062 BPM Atrial Rate : 062 BPM P-R Int : 168 ms QRS Dur : 104 ms QT Int : 420 ms P-R-T Axes : 071 051 067 degrees QTc Int : 426 ms Normal sinus rhythm Normal ECG When compared with ECG of 19-NOV-2023 07:21, QRS axis Shifted left T wave inversion no longer evident in Lateral leads Referred By: Mallory Garcia Electronically Signed By:MARIALUISA KOO
[2023-12-26] MEDS: iohexoL 350 MG/ML 100 ML INFUS..BTL IV (10:14)
[2023-12-26] MEDS: dexAMETHasone sod phosphate 10 MG/ML VIAL IVPUSH (10:22)
--- NOTE | 2023-12-26 10:28 | PC.NURSE ---
Addendum entered by Maria L Wheatley 12/26/23 10:32: placed on case monitor - NSR Original Note: patient medicated per the MAR, awaiting results of ct scan
[2023-12-26 10:33] VITALS: BP 153/85; PULSE 60; RESP 12; TEMP 37.1; O2SAT 96
[2023-12-26] MEDS: Albuterol/Iprat 2.5/0.5MG 3 ML AMPUL.NEB INHALE (10:37)
[2023-12-26 10:38] VITALS: PULSE 65; RESP 11; O2SAT 95
[2023-12-26 10:40] LABS: Troponin-I High Sensitivity 4.3 ng/L (<3.5-35.0)
[2023-12-26 10:46] LABS: B Type Natriuretic Peptide 22 pg/mL (<100)
[2023-12-26 11:39] LABS: Troponin-I High Sensitivity 5.2 ng/L (<3.5-35.0)
[2023-12-26 12:07] VITALS: BP 153/85; PULSE 65; RESP 11; TEMP 37.1; O2SAT 96
== END 2023-12-26 12:07 | disposition home or self-care (01) ==
PROVIDERS: Physician Assistant; Emergency Provider Emergency Medicine
DX: J44.9 Chronic obstructive pulmonary disease, unspecified (principal); R06.02 Shortness of breath; Z03.818 Encounter for observation for suspected exposure to other biological agents ruled out; Z79.899 Other long term (current) drug therapy
CPT/HCPCS: 0241U; 36415; 71046; 71275; 80053; 83735; 83880; 84484; 85025; 93005; 94640; 99285; J1100; Q9967

== ENCOUNTER 2024-01-29 02:15 | Emergency (ER) | payer OTHER, SELFPAY ==
--- NOTE | 2024-01-29 | ECG_ITS ---
Test Reason : SOB Blood Pressure : / mmHG Vent. Rate : 074 BPM Atrial Rate : 074 BPM P-R Int : 156 ms QRS Dur : 102 ms QT Int : 396 ms P-R-T Axes : 079 067 067 degrees QTc Int : 439 ms Normal sinus rhythm Incomplete right bundle branch block Borderline ECG When compared with ECG of 26-DEC-2023 10:22, Incomplete right bundle branch block is now Present Referred By: Generic ED Physician Electronically Signed By:ARLENE SANDHU MD
--- NOTE | ~2024-01-29 | XR_ITS ---
EXAMINATION: XR CHEST CLINICAL INFORMATION: Dyspnea COMPARISON: CT angiography chest 12/26/2023. TECHNIQUE: Frontal view of the chest was obtained. FINDINGS: Normal appearance of the cardiomediastinal structures. No effusions or pneumothoraces. Minimal chronic appearing biapical pleural parenchymal scarring of the lungs. Normal pattern of pulmonary vasculature. No focal pulmonary consolidation. No displaced rib fractures noted. Chronic post matter deformity of the left posterior 10th rib. Chronic appearing posttraumatic deformity of the posterior segment of the right sixth rib. XR/XR chest 1V IMPRESSION: No acute cardiopulmonary abnormalities. Lungs clear. No evidence of active pulmonary edema or pneumonia. Electronically signed by: Devante Zambrano MD 01/29/2024 04:19 AM EDT
[2024-01-29 02:37] VITALS: BP 162/97; PULSE 74; RESP 20; TEMP 36.6; O2SAT 93; BMI 20.7
[2024-01-29 03:00] LABS: MANUAL DIFF FLAG NO
[2024-01-29 03:01] LABS: Basophils Absolute Auto 0.1 X10*3/uL (0.0-0.2); Basophils Percent Auto 0.8 % (0-2); Eosinophils Absolute Auto 1.3 X10*3/uL (0.0-0.4); Eosinophils Percent Auto 18.2 % (0-4); Hematocrit 41.7 % (42.0-52.0); Hemoglobin 14.4 g/dl (14.0-18.0); Imm Gran Abs Auto 0.01 X10*3/uL (0.00-0.03); Imm Gran Pct Auto 0.1 % (0.0-0.4); Lymphocytes Absolute Auto 1.6 X10*3/uL (1.2-4.9); Lymphocytes Percent Auto 22.2 % (20-40); Mean Corpuscular HGB Conc 34.5 g/dl (31.0-36.0); Mean Corpuscular Volume 89.7 fL (80.0-98.0); Mean Platelet Volume 10.2 fL (9.4-12.4); Monocytes Absolute Auto 0.5 X10*3/uL (0.1-1.2); Monocytes Percent Auto 6.8 % (2-11); Neutrophils Absolute Auto 3.7 x10*3/uL (2.0-8.3); Neutrophils Percent Auto 51.9 % (45-73); Platelet Count 186 X10*3/uL (160-400); Red Blood Count 4.65 X10*6/uL (4.60-5.80); Red Cell Distribution Width 12.6 % (11.0-16.0); White Blood Count 7.1 X10*3/uL (4.8-10.8)
[2024-01-29 03:18] LABS: Alanine Aminotransferase 34 U/L (0-40); Albumin Level 4.1 g/dL (3.5-5.0); Alkaline Phosphatase 96 U/L (39-117); Anion Gap 11 (12-20); Aspartate Amino Transferase 24 U/L (5-37); Bilirubin Total 0.5 mg/dL (0.0-1.0); Blood Urea Nitrogen 11 mg/dL (9-16); Calcium 9.4 mg/dL (8.4-10.2); Carbon Dioxide 28 mmol/L (22-29); Chloride 109 mmol/L (96-108); Estimated Glomerular Filt Rate > 60; Glucose Random 104 mg/dL (60-115); Potassium 3.1 mmol/L (3.3-5.1); Sodium 145 mmol/L (135-145); Total Protein 6.5 g/dL (6.5-8.0)
[2024-01-29 05:02] VITALS: BP 132/88; PULSE 71; RESP 16; TEMP 36.3; O2SAT 94
--- NOTE | 2024-01-29 05:08 | MHC.EDTECH ---
Patient refused MEETING/EVENT PLANNER swab. Pt states I don't have covid, RSV or Flu, I just need a breathing treatment
[2024-01-29] MEDS: Potassium Chloride Packet 20 MEQ PACKET 60 MEQ PO (05:58)
[2024-01-29] MEDS: methylPREDNISolone Sod Succ 125 MG/2 ML VIAL IVPUSH (06:39)
[2024-01-29] MEDS: Magnesium Sulfate/H2O 2 GM/50 ML PIGGYBACK IV (06:39)
[2024-01-29 06:48] VITALS: PULSE 74; RESP 20; O2SAT 94
[2024-01-29] MEDS: Albuterol Sulfate 7.5 MG, Albuterol Sulfate (0.083%) 2.5 MG 10 MG INHALE (06:48)
--- NOTE | 2024-01-29 07:19 | ED.SOB ---
HPI - SOB/Dyspnea General Chief Complaint: Dyspnea Stated Complaint: respiratory issues Time Seen by Provider: 01/29/24 04:37 Source: patient Mode of arrival: ambulatory Limitations: no limitations History of Present Illness ED Provider: Dr. Letty Adkins HPI Narrative: Patient comes to the emergency room complaining of 3 days of shortness of breath. Patient has history of COPD and asthma. Patient denies any additional coughing, no phlegm, no fever chills. Patient states that he feels as a typical asthma exacerbation for him. Related Data Previous Rx's ?Medication ?Instructions ?Recorded prednisone 20 mg tablet 60 mg (3 x 20 mg) PO DAILY 5 days 09/28/23 #15 tabs albuterol sulfate 2.5 mg/3 mL 2.5 mg (3 mL) inhalation Q6H PRN 11/19/23 (0.083 %) solution for nebulization shortness of breath or wheezing #75 mL albuterol sulfate 90 mcg/actuation 1 inh inhalation QID PRN shortness 11/19/23 aerosol inhaler of breath or wheezing #8.5 grams azithromycin 250 mg tablet See Rx Instructions PO .COMPLEX #6 11/19/23 (Zithromax Z-Isai) tabs prednisone 20 mg tablet 20 mg PO BID #10 tabs 11/19/23 albuterol sulfate 90 mcg/actuation 2 inh inhalation Q4-6H PRN 12/26/23 breath activated powder inhaler shortness of breath or wheezing #1 ea doxycycline hyclate 100 mg capsule 100 mg PO BID 10 days #20 caps 12/26/23 prednisone 20 mg tablet 40 mg (2 x 20 mg) PO DAILY 5 days 12/26/23 #10 tabs prednisone 50 mg tablet 50 mg PO DAILY #4 tabs 01/29/24 Allergies Allergy/AdvReac Type Severity Reaction Status Date / Time No Known Allergies Allergy Verified 01/29/24 02:38 Review of Systems Review of Systems: Constitutional : No Weight loss, No Fever, No Chills, No Night Sweats, No Fatigue, No Malaise ENT/Mouth : No Hearing loss, No Ear Pain, No Nasal Congestion, No Sinus Pain, No Hoarseness, No sore throat, No Rhinorrhea, No Swallowing Difficulty Eyes: No Eye Pain, No Swelling, No Redness, No Foreign Body, No Discharge, No Vision Changes Cardiovascular : Chest tightness with out Chest Pain, No SOB, No Dyspnea on Exertion, No Orthopnea, No Edema, No Palpitations Respiratory : No Cough, No Sputum, complaining of wheezing and shortness of breath Gastrointestinal : No Nausea, No Vomiting, No Diarrhea, No Constipation, No abdominal Pain, No Hematochezia, No Melena Genitourinary : no irregular bleeding, No Dysuria, No Urinary Frequency, No Hematuria, No Urinary Incontinence, No Urgency, No Flank Pain, No Urinary Flow Changes, No Hesitancy Musculoskeletal : No joint pain, No Myalgias, No Joint Swelling Skin : No Skin Lesions, No rash Neuro : No Weakness, No Numbness, No Paresthesias, No Loss of Consciousness, No Dizziness, No Headache Psych : No Anxiety/Panic, No Depression, No SI/HI/AH/VH, No Social Issues, Heme/Lymph: No Bruising, No Bleeding,No Lymphadenopathy Endocrine : No Polyuria, No Polydipsia, No Temperature Intolerance [facility] Past Medical History Medical History (Updated 01/29/24 @ 07:32 by Letty Adkins MD) COPD (chronic obstructive pulmonary disease) Asthma Social History Social History Unable to assess alcohol history related to: Unknown Alcohol intake: current Alcohol intake frequency: holidays/special occasions only Smoked in Last 30 Days: Yes Use of substances other than those prescribed or required for medical reasons: Yes Substance Use Type: Marijuana Advance Directives: No Do you have a plan to hurt others: No Plan Physical Exam Vital Signs: Vital Signs: Last Vital Signs Temp 97.4 F 01/29/24 05:02 Pulse 74 01/29/24 06:48 Resp 20 01/29/24 06:48 BP 132/88 01/29/24 05:02 Pulse Ox 94 01/29/24 05:02 O2 Del Method Room Air 01/29/24 05:02 BMI result Body Mass Index 20.7 Const: Other: Appearance: Alert. Oriented X3. No acute distress. Eyes: Pupils equal, round and reactive to light. ENT: Pharynx normal. Neck: Normal inspection. Neck supple. No lymph nodes noted. No crepitus CVS: Normal heart rate and rhythm. Pulses normal. Normal S1 and S2 Respiratory: No respiratory distress. Decreased air movement bilaterally, [id number] bilateral wheezing Abdomen: Soft and nontender. No rigidity. No distention. Skin: Skin warm and dry. Normal skin color. Normal skin turgor. Extremities: No lower extremity edema. No Lacerations. No Rash Neuro: Oriented X 3. No motor deficit. No sensory deficit. Moving all extremities. No slurred speech. CN 2 through 12 grossly intact Psych: calm, cooperative, normal affect Course Course Course Narrative: Patient receiving IV Solu-Medrol and magnesium, nebulization treatments Medications Administered Generic Name Dose Route Start Last Admin Trade Name Freq PRN Reason Stop Dose Admin Magnesium Sulfate 2 gm in 50 mls @ 25 mls/hr 01/29/24 06:22 01/29/24 06:39 Magnesium Sulfate/H2o IV 01/29/24 08:21 25 mls/hr ONCE ONE Administration Discontinued Medications Generic Name Dose Route Start Last Admin Trade Name Freq PRN Reason Stop Dose Admin Albuterol Sulfate 7.5 mg/ 10 mg 01/29/24 06:45 01/29/24 06:48 Albuterol Sulfate 2.5 mg INHALE 01/29/24 06:46 10 mg ONCE ONE Administration Methylprednisolone Sodium Succinate 125 mg 01/29/24 06:22 01/29/24 06:39 Methylprednisolone Sod Succ 125 Mg/2 Ml Vial IVPUSH 01/29/24 06:23 125 mg ONCE ONE Administration Potassium Chloride 60 meq 01/29/24 04:39 01/29/24 05:58 Potassium Chloride Packet 20 Meq Packet PO 01/29/24 04:40 60 meq ONCE ONE Administration Medical Decision Making Medical Decision Making [facility] Narrative: My interpretation of labs, normal hematology, potassium 3.1, otherwise normal chemistry, troponin negative -patient's potassium being replaced p.o. -my interpretation of chest x-ray, no obvious infiltrate -after the above-mentioned treatment, patient states that he feels much better. On auscultation, patient moving air within normal limits, almost no wheezing. Relation child, patient did not have any oxygen desaturations. Patient's oxygen saturation remains at 96 97% on room air even on exertion on ambulation trial Patient is not requiring more oxygen than usual, is not having productive cough. Chronic lung disease exacerbation not indicated at this time, more likely an asthma exacerbation today. Patient states that he has enough albuterol both pump and for nebulization treatments at home Differential Diagnosis Differential Diagnoses: The differential diagnosis associated with the presentation includes (Asthma, chronic lung disease) Admission/Observation Consideration of admission/observation: Escalation of care including admission/observation considered (Given patient's past medical history and presentation, observation was considered) Lab Data MDM Lab Attestation statement: I reviewed the patient's lab results. 01/29/24 02:54 01/29/24 02:54 Labs: Lab Results 01/29/24 Range/Units 02:54 WBC 7.1 (4.8-10.8) X10*3/uL RBC 4.65 (4.60-5.80) X10*6/uL Hgb 14.4 (14.0-18.0) g/dl Hct 41.7 L (42.0-52.0) % MCV 89.7 (80.0-98.0) fL MCH 31.0 (27.0-33.0) pg MCHC 34.5 (31.0-36.0) g/dl RDW 12.6 (11.0-16.0) % Plt Count 186 (160-400) X10*3/uL MPV 10.2 (9.4-12.4) fL Immature Gran % (Auto) 0.1 (0.0-0.4) % Neut % (Auto) 51.9 (45-73) % Lymph % (Auto) 22.2 (20-40) % [place] % (Auto) 6.8 (2-11) % Eos % (Auto) 18.2 H (0-4) % Baso % (Auto) 0.8 (0-2) % Lymph # (Auto) 1.6 (1.2-4.9) X10*3/uL [place] # (Auto) 0.5 (0.1-1.2) X10*3/uL Eos # (Auto) 1.3 H (0.0-0.4) X10*3/uL Baso # (Auto) 0.1 (0.0-0.2) X10*3/uL Abs Immat Gran (auto) 0.01 (0.00-0.03) X10*3/uL Absolute Neuts (auto) 3.7 (2.0-8.3) x10*3/uL Absolute Nucleated RBC 0.000 (0.0-0.012) X10*3/uL Nucleated RBC % (auto) 0.0 (0.0-0.2) /100WBC Sodium 145 (135-145) mmol/L Potassium 3.1 L (3.3-5.1) mmol/L Chloride 109 H (96-108) mmol/L Carbon Dioxide 28 (22-29) mmol/L Anion Gap 11 L (12-20) BUN 11 (9-16) mg/dL Creatinine 0.77 (0.5-1.4) mg/dL Estim Creat Clear Calc 87.0 Estimated GFR > 60 Random Glucose 104 (60-115) mg/dL Calcium 9.4 (8.4-10.2) mg/dL Total Bilirubin 0.5 (0.0-1.0) mg/dL AST 24 (5-37) U/L ALT 34 (0-40) U/L Alkaline Phosphatase 96 (39-117) U/L Troponin I High Sens 3.0 (<3.5-35.0) ng/L Total Protein 6.5 (6.5-8.0) g/dL Albumin 4.1 (3.5-5.0) g/dL Independent Interpretation I performed an independent interpretation of an: Plain X-Ray Radiology Impression Discussion of test interpretation with radiology: I have reviewed the radiologist's reading. Radiologist Impression: Normal appearance of the cardiomediastinal structures. No effusions or pneumothoraces. Minimal chronic appearing biapical pleural parenchymal scarring of the lungs. Normal pattern of pulmonary vasculature. No focal pulmonary consolidation. No displaced rib fractures noted. Chronic post matter deformity of the left posterior 10th rib. Chronic appearing posttraumatic deformity of the posterior segment of the right sixth rib. XR/XR chest 1V IMPRESSION: No acute cardiopulmonary abnormalities. Lungs clear. No evidence of active pulmonary edema or pneumonia. Critical Care Time Critical Care Time Critical Care Time: Yes Total Critical Care Time: 45 Attestation: I have personally provided critical care time. Time includes review of lab data, radiology results, discussion with consultants, and monitoring for potential decompensation. Intervention performed as documented. Discharge Plan Discharge Clinical Impression: Asthma with exacerbation Patient Disposition: Home, Self-Care Instructions: Asthma (ED) Additional Instructions: Please follow-up with your primary care physician tomorrow. If you have any worsening or new symptoms, please return to the emergency room or call 911 Prescriptions: New prednisone 50 mg tablet 50 mg PO DAILY Qty: 4 0RF No Action doxycycline hyclate 100 mg capsule 100 mg PO BID 10 Days Qty: 20 0RF albuterol sulfate 90 mcg/actuation aerosol powdr breath activated 2 inh inhalation Q4-6H PRN (Reason: shortness of breath or wheezing) Qty: 1 0RF prednisone 20 mg tablet 40 mg PO DAILY 5 Days Qty: 10 0RF prednisone 20 mg tablet 60 mg PO DAILY 5 Days Qty: 15 0RF prednisone 20 mg tablet 20 mg PO BID Qty: 10 0RF azithromycin [Zithromax Z-Isai] 250 mg tablet See Rx Instructions .ROUTE .COMPLEX Qty: 6 0RF Rx Instructions: For 250 mg dose pack: take 500 mg today (day 1), then 250 mg for 4 days (days 2-5) albuterol sulfate 90 mcg/actuation HFA aerosol inhaler 1 inh inhalation QID PRN (Reason: shortness of breath or wheezing) Qty: 8.5 0RF albuterol sulfate 2.5 mg /3 mL (0.083 %) solution for nebulization 2.5 mg inhalation Q6H PRN (Reason: shortness of breath or wheezing) Qty: 75 0RF Print Language: Grenadian
[2024-01-29 08:01] VITALS: PULSE 70; RESP 16; O2SAT 94
[2024-01-29] MEDS: Albuterol/Iprat 2.5/0.5MG 3 ML AMPUL.NEB INHALE (08:03)
[2024-01-29 08:51] VITALS: BP 125/78; PULSE 87; RESP 16; TEMP 36.6; O2SAT 95
== END 2024-01-29 08:52 | disposition home or self-care (01) ==
PROVIDERS: Emergency Provider Emergency Medicine
DX: J45.901 Unspecified asthma with (acute) exacerbation (principal); R06.02 Shortness of breath
CPT/HCPCS: 36415; 71045; 80053; 84484; 85025; 93005; 94640; 96365; 96366; 96375; 99284; 99285; J2919; J3475

== ENCOUNTER → 2024-01-29 02:40 | Outpatient (BNV) | payer OTHER, SELFPAY | PROVIDERS: Emergency Provider Emergency Medicine; Visit Provider Internal Medicine Cardiovascular Disease | DX: R06.02 Shortness of breath (principal) | CPT/HCPCS: 93010 ==

== ENCOUNTER 2024-02-27 02:33 | Emergency (ER) | payer OTHER, SELFPAY ==
--- NOTE | ~2024-02-27 | XR_ITS ---
EXAMINATION: XR CHEST CLINICAL INFORMATION: Cough. COMPARISON: January 29, 2024 TECHNIQUE: Frontal view of the chest was obtained. FINDINGS: No significant abnormality is noted involving the heart, lungs, mediastinum, bony thorax or soft tissues. XR/XR chest 1V IMPRESSION: No evidence for active cardiopulmonary disease. Electronically signed by: Zachariah Wood MD 02/27/2024 03:57 AM [facility]
[2024-02-27 02:43] VITALS: BP 150/79; PULSE 80; RESP 16; TEMP 36.6; O2SAT 93; BMI 19.2
[2024-02-27 03:07] LABS: Basophils Absolute Auto 0.1 X10*3/uL (0.0-0.2); Basophils Percent Auto 1.2 % (0-2); Eosinophils Absolute Auto 1.6 X10*3/uL (0.0-0.4); Eosinophils Percent Auto 22.3 % (0-4); Hematocrit 41.1 % (42.0-52.0); Hemoglobin 14.1 g/dl (14.0-18.0); Imm Gran Abs Auto 0.01 X10*3/uL (0.00-0.03); Imm Gran Pct Auto 0.1 % (0.0-0.4); Lymphocytes Absolute Auto 1.7 X10*3/uL (1.2-4.9); Lymphocytes Percent Auto 22.6 % (20-40); Mean Corpuscular HGB Conc 34.3 g/dl (31.0-36.0); Mean Corpuscular Hemoglobin 30.9 pg (27.0-33.0); Mean Corpuscular Volume 90.1 fL (80.0-98.0); Mean Platelet Volume 9.4 fL (9.4-12.4); Monocytes Absolute Auto 0.6 X10*3/uL (0.1-1.2); Monocytes Percent Auto 7.8 % (2-11); Neutrophils Absolute Auto 3.4 x10*3/uL (2.0-8.3); Platelet Count 210 X10*3/uL (160-400); Red Blood Count 4.56 X10*6/uL (4.60-5.80); Red Cell Distribution Width 12.6 % (11.0-16.0); SCAN SMEAR FLAG 1; White Blood Count 7.3 X10*3/uL (4.8-10.8)
[2024-02-27 03:08] LABS: MANUAL DIFF FLAG SCAN
[2024-02-27 03:20] LABS: Anion Gap 14 (12-20); Blood Urea Nitrogen 17 mg/dL (9-16); Calcium 9.2 mg/dL (8.4-10.2); Carbon Dioxide 23 mmol/L (22-29); Chloride 108 mmol/L (96-108); Creatinine Clr Calc Pharmacy 75.9; Estimated Glomerular Filt Rate > 60; Glucose Random 104 mg/dL (60-115); Potassium 4.1 mmol/L (3.3-5.1); Sodium 141 mmol/L (135-145)
[2024-02-27 03:25] LABS: SLIDE REVIEW VERIFIED
[2024-02-27 06:35] VITALS: BP 148/86; PULSE 68; RESP 18; TEMP 36.3; O2SAT 95
[2024-02-27 06:37] VITALS: O2SAT 95
--- NOTE | 2024-02-27 06:38 | PC.NURSE ---
Pt brought to [facility] [place] [facility] 3 for treatment, assumed care of pt at this time. A&Ox3, flat affect. Skin color wnl for ethnicity, respirations even unlabored. Endorsing SOB and cough x 2 days. Not very forth giving with information. Also endorsing back and BLE pain stiff in nature from sitting in waiting room for so long . Cxray and labs resulted, awaiting primary provider eval.
--- NOTE | 2024-02-27 06:46 | ED.GENADULT ---
HPI - General Adult General Chief complaint: Upper Respiratory Symptoms Stated complaint: SOB Time Seen by Provider: 02/27/24 06:40 Source: patient Mode of arrival: ambulatory Limitations: no limitations History of Present Illness ED Provider: Rosalba Nevarez PA-C HPI narrative: Patient is a 63 year old assigned male at with a history of COPD presenting to the emergency department today with a cough. Patient states that he was having a coughing fit after emptying the trash. Patient states that this has happened before and steroids usually help. Patient denies any dizziness, lightheadedness, abdominal pain, nausea, vomiting, fever, chills, blurry vision, double vision, loss of vision, chest pain, difficulty breathing, shortness of breath, back pain, night sweats, pain with urination, increased urinary frequency, increased urinary urgency, blood in his urine or stool, syncope or a near syncopal episode, recent trauma or falls, bowel incontinence, bladder incontinence, or any other complaints at this time. Relieving factors: none Exacerbating factors: none Associated symptoms: cough Treatments prior to arrival: none Related Data Previous Rx's ?Medication ?Instructions ?Recorded prednisone 20 mg tablet 60 mg (3 x 20 mg) PO DAILY 5 days 09/28/23 #15 tabs albuterol sulfate 2.5 mg/3 mL 2.5 mg (3 mL) inhalation Q6H PRN 11/19/23 (0.083 %) solution for nebulization shortness of breath or wheezing #75 mL albuterol sulfate 90 mcg/actuation 1 inh inhalation QID PRN shortness 11/19/23 aerosol inhaler of breath or wheezing #8.5 grams azithromycin 250 mg tablet See Rx Instructions PO .COMPLEX #6 11/19/23 (Zithromax Z-Isai) tabs prednisone 20 mg tablet 20 mg PO BID #10 tabs 11/19/23 albuterol sulfate 90 mcg/actuation 2 inh inhalation Q4-6H PRN 12/26/23 breath activated powder inhaler shortness of breath or wheezing #1 ea doxycycline hyclate 100 mg capsule 100 mg PO BID 10 days #20 caps 12/26/23 prednisone 20 mg tablet 40 mg (2 x 20 mg) PO DAILY 5 days 12/26/23 #10 tabs prednisone 50 mg tablet 50 mg PO DAILY #4 tabs 01/29/24 prednisone 20 mg tablet 20 mg PO DAILY 12 days #26 tabs 02/27/24 Allergies Allergy/AdvReac Type Severity Reaction Status Date / Time No Known Allergies Allergy Verified 02/27/24 02:46 Review of Systems Constitutional: Constitutional: Reports no additional constitutional complaints, Denies chills, Denies fever(s) and Denies night sweats Eyes: Eyes: Reports no additional eye complaints, Denies blurry vision, Denies change in vision, Denies diplopia, Denies eye discharge, Denies loss of vision and Denies eye pain ENT: Denies dizziness Cardiovascular: Cardiovascular: Reports no additional cardiovascular complaints, Denies chest pain, Denies lightheadedness, Denies Loss of Consciousness and Denies dyspnea Respiratory: Respiratory: Reports no additional respiratory complaints, Reports cough and Denies dyspnea Gastrointestinal: Gastrointestinal: Reports no additional gastrointestinal complaints, Denies abdominal pain, Denies melena, Denies hematochezia, Denies change in bowel habits and Denies change in stool character Genitourinary: Genitourinary: Reports no additional male genitourinary complaints, Denies hematuria, Denies oliguria, Denies difficulty urinating, Denies dysuria, Denies urinary frequency, Denies urinary hesitancy, Denies urinary incontinence and Denies urinary urgency Musculoskeletal: Musculoskeletal: Reports no additional musculoskeletal complaints, Denies numbness and Denies tingling Neurologic: Denies dizziness, Denies loss of vision, Denies numbness and Denies tingling Psychiatric: Psychiatric: Reports no additional psychiatric complaints Endocrine: Endocrine: Reports no additional endocrine complaints Hematologic/Lymphatic: Hematologic/Lymphatic: Reports no additional hematologic/lymphatic complaints Allergic/Immunologic: Allergic/Immunologic: Reports no additional allergic/immunologic complaints [facility] Past Medical History Attestation statement: The following information was validated with the patient. Source: old records reviewed and nursing notes reviewed Medical History COPD (chronic obstructive pulmonary disease) Asthma Social History Social History Unable to assess alcohol history related to: Unknown Alcohol intake: current Alcohol intake frequency: holidays/special occasions only Substance Use Type: Marijuana Advance Directives: No Advance Directives Information Provided: Yes Do you have a plan to hurt others: No Plan Physical Exam ED Vital Signs: Vital Signs - 24 hr 02/27/24 02:43 02/27/24 06:35 02/27/24 06:37 Temperature 97.9 F 97.4 F Pulse Rate 80 68 Respiratory Rate 16 18 Blood Pressure 150/79 H 148/86 H Pulse Oximetry 93 95 95 Oxygen Delivery Method Room Air Room Air Room Air 02/27/24 07:16 Temperature Pulse Rate 68 Respiratory Rate 18 Blood Pressure Pulse Oximetry Oxygen Delivery Method BMI result Body Mass Index 19.2 Const General: cooperative, no acute distress, alert and awake Nutritional Appearance: well nourished Orientation/consciousness: patient oriented x3 Limitations: no limitations HENMT Head: Yes normal to inspection and Yes atraumatic Ears: hearing grossly normal bilaterally and external ears normal General nose exam: Normal external nose present, no nasal discharge noted and no epistaxis Face and sinus: Yes normal facial exam, No abrasion and No laceration Mouth: Normal oral and palatal mucosa present, no drooling and no muffled voice Eyes General: appearance normal, both eyes and all related structures Periorbital: periorbital findings normal Eyelids: Yes eyelids normal Conjunctivae: conjunctivae normal Pupils: Equal, round and reactive pupils present EOM: EOMs intact bilaterally Neck Neck: Yes normal visual inspection, Yes full ROM and Yes no lymphadenopathy Chest Chest palpation & inspection: normal inspection of the chest Resp Effort & Inspection: normal respiratory effort and able to speak in complete sentences GI Inspection: Yes normal to inspection Neuro General: patient oriented x3 and moves all extremities Cranial nerves: Yes Equal, round and reactive pupils present Cognition (Neuro): normal cognition Extrem General: Yes normal to inspection, Yes full ROM and Yes capillary refill normal Psych Appearance: grossly normal Mental Status: mental status grossly normal Affect: normal affect Attitude: cooperative Thought process: Normal thought process present Thought content: Normal thought content present Insight: Good insight present (Psych) Medications Administered Discontinued Medications Generic Name Dose Route Start Last Admin Trade Name Freq PRN Reason Stop Dose Admin Albuterol/Ipratropium 3 ml 02/27/24 07:05 02/27/24 07:15 Albuterol/Iprat 2.5/0.5mg 3 Ml Ampul.Neb INHALE 02/27/24 07:06 3 ml ONCE ONE Administration Methylprednisolone Sodium Succinate 60 mg 02/27/24 07:06 02/27/24 07:13 Methylprednisolone Sod Succ 125 Mg/2 Ml Vial IM 02/27/24 07:07 60 mg ONCE ONE Administration Medical Decision Making Medical Decision Making [facility] Narrative: Patient is a 63 year old assigned male at with a history of COPD presenting to the emergency department today after a coughing fit. Patient's physical exam was unremarkable. Patient's blood work was unremarkable. Patient's chest x-ray showed no acute process. I explained my physical exam findings as well as all test results to the patient. I answered all questions asked by the patient. I stressed the importance of the patient taking his medication as directed (either prescribed or as the over the counter packaging recommends). I stressed the importance of the patient following up with his primary care provider. I stressed the importance of the patient returning to the emergency department immediately if his symptoms were to worsen or if he were to develop any dizziness, shortness of breath, difficulty breathing, chest pain, blurry vision, loss of vision, nausea, vomiting, abdominal pain, fever, chills, back pain, or any other complaints. Patient verbalized agreement and understanding with this treatment plan and discharge. Differential Diagnosis Differential Diagnoses: The differential diagnosis associated with the presentation includes Cough COPD exacerbation Admission/Observation Consideration of admission/observation: Escalation of care including admission/observation considered Cough COPD exacerbation Lab Data [facility] Lab Attestation statement: I reviewed the patient's lab results. My interpretation of these results are in the MDM Rationale portion of this note. 02/27/24 03:03 02/27/24 03:03 Labs: Lab Results 02/27/24 02/27/24 Range/Units 03:03 07:03 WBC 7.3 (4.8-10.8) X10*3/uL RBC 4.56 L (4.60-5.80) X10*6/uL Hgb 14.1 (14.0-18.0) g/dl Hct 41.1 L (42.0-52.0) % MCV 90.1 (80.0-98.0) fL MCH 30.9 (27.0-33.0) pg MCHC 34.3 (31.0-36.0) g/dl RDW 12.6 (11.0-16.0) % Plt Count 210 (160-400) X10*3/uL MPV 9.4 (9.4-12.4) fL Immature Gran % (Auto) 0.1 (0.0-0.4) % Neut % (Auto) 46.0 (45-73) % Lymph % (Auto) 22.6 (20-40) % Levy % (Auto) 7.8 (2-11) % Eos % (Auto) 22.3 H (0-4) % Baso % (Auto) 1.2 (0-2) % Lymph # (Auto) 1.7 (1.2-4.9) X10*3/uL Levy # (Auto) 0.6 (0.1-1.2) X10*3/uL Eos # (Auto) 1.6 H (0.0-0.4) X10*3/uL Baso # (Auto) 0.1 (0.0-0.2) X10*3/uL Abs Immat Gran (auto) 0.01 (0.00-0.03) X10*3/uL Absolute Neuts (auto) 3.4 (2.0-8.3) x10*3/uL Absolute Nucleated RBC 0.000 (0.0-0.012) X10*3/uL Nucleated RBC % (auto) 0.0 (0.0-0.2) /100WBC Smear Tech's Comments VERIFIED Sodium 141 (135-145) mmol/L Potassium 4.1 D (3.3-5.1) mmol/L Chloride 108 (96-108) mmol/L Carbon Dioxide 23 (22-29) mmol/L Anion Gap 14 (12-20) BUN 17 H (9-16) mg/dL Creatinine 0.82 (0.5-1.4) mg/dL Estim Creat Clear Calc 75.9 Estimated GFR > 60 Random Glucose 104 (60-115) mg/dL Calcium 9.2 (8.4-10.2) mg/dL Influenza Type A (PCR) NEGATIVE (Negative) Influenza Type B (PCR) NEGATIVE (Negative) RSV RNA Qual (PCR) NEGATIVE (Negative) SARS-CoV-2 RNA (RT-PCR) NEGATIVE (Negative) Independent Interpretation I performed an independent interpretation of an: Plain X-Ray Interpretation: My interpretation is in agreement with the radiologist's impression of this imaging study. EXAMINATION: XR CHEST CLINICAL INFORMATION: Cough. COMPARISON: January 29, 2024 TECHNIQUE: Frontal view of the chest was obtained. FINDINGS: No significant abnormality is noted involving the heart, lungs, mediastinum, bony thorax or soft tissues. XR/XR chest 1V IMPRESSION: No evidence for active cardiopulmonary disease. Electronically signed by: Zachariah Wood MD 02/27/2024 03:57 AM EST Dictated By: Zachariah Wood MD Signed By: Electronically signed by Zachariah Wood MD 02/27/24 0357 Radiology Impression Discussion of test interpretation with radiology: I have reviewed the radiologist's reading. Discharge Plan Discharge Clinical Impression: COPD exacerbation Patient Disposition: Home, Self-Care Instructions: COPD (Chronic Obstructive Pulmonary Disease) (DC) Additional Instructions: Follow up with your primary care provider. Return to the emergency department immediately if your symptoms worsen or if you develop any dizziness, shortness of breath, difficulty breathing, chest pain, blurry vision, loss of vision, nausea, vomiting, abdominal pain, fever, chills, back pain, or any other complaints. Prescriptions: New prednisone 20 mg tablet 20 mg PO DAILY 12 Days Qty: 26 0RF Rx Instructions: Take 3 tablets for 5 days THEN; Take 2 tablets for 4 days THEN; Take 1 tablet for 3 days No Action doxycycline hyclate 100 mg capsule 100 mg PO BID 10 Days Qty: 20 0RF albuterol sulfate 90 mcg/actuation aerosol powdr breath activated 2 inh inhalation Q4-6H PRN (Reason: shortness of breath or wheezing) Qty: 1 0RF prednisone 20 mg tablet 40 mg PO DAILY 5 Days Qty: 10 0RF prednisone 50 mg tablet 50 mg PO DAILY Qty: 4 0RF prednisone 20 mg tablet 60 mg PO DAILY 5 Days Qty: 15 0RF prednisone 20 mg tablet 20 mg PO BID Qty: 10 0RF azithromycin [Zithromax Z-Isai] 250 mg tablet See Rx Instructions .ROUTE .COMPLEX Qty: 6 0RF Rx Instructions: For 250 mg dose pack: take 500 mg today (day 1), then 250 mg for 4 days (days 2-5) albuterol sulfate 90 mcg/actuation HFA aerosol inhaler 1 inh inhalation QID PRN (Reason: shortness of breath or wheezing) Qty: 8.5 0RF albuterol sulfate 2.5 mg /3 mL (0.083 %) solution for nebulization 2.5 mg inhalation Q6H PRN (Reason: shortness of breath or wheezing) Qty: 75 0RF Referrals: Fabrice Gruber MD [Primary Care Provider] - Discharge Date/Time: 02/27/24 07:43 Print Language: Trinidadian
[2024-02-27] MEDS: methylPREDNISolone Sod Succ 125 MG/2 ML VIAL 60 MG IM (07:13)
[2024-02-27] MEDS: Albuterol/Iprat 2.5/0.5MG 3 ML AMPUL.NEB INHALE (07:15)
[2024-02-27 07:16] VITALS: PULSE 68; RESP 18; O2SAT 97
[2024-02-27 07:48] LABS: Influenza A PCR NEGATIVE (Negative); Influenza B PCR NEGATIVE (Negative); Resp Syncy Virus RNA Qual PCR NEGATIVE (Negative); SARS COV2 PCR INHOUSE NEGATIVE (Negative)
== END 2024-02-27 07:43 | disposition home or self-care (01) ==
PROVIDERS: Physician Assistant Medical; Emergency Provider Emergency Medicine; PCP Internal Medicine
DX: J44.1 Chronic obstructive pulmonary disease with (acute) exacerbation (principal); R06.02 Shortness of breath; R05.9 Cough, unspecified; Z03.818 Encounter for observation for suspected exposure to other biological agents ruled out; Z79.899 Other long term (current) drug therapy
CPT/HCPCS: 0241U; 36415; 71045; 80048; 85025; 94640; 96372; 99284; 99285; J2919

== ENCOUNTER 2024-05-15 08:09 | Emergency (ER) | payer OTHER, SELFPAY ==
--- NOTE | ~2024-05-15 | XR_ITS ---
EXAMINATION: XR CHEST 1 VIEW HISTORY: SOB COMPARISON: Comparison is made with the prior examination dated 02/27/2024. FINDINGS: A single PA view of the chest is submitted. There is minimal scarring in the lingula. The lungs are otherwise clear. There is no pleural effusion, pneumothorax, or pulmonary vascular congestion. The heart is normal in size. The bones are intact. XR/XR chest 1V IMPRESSION: No acute cardiopulmonary abnormality. Electronically signed by: Marko Lam MD 05/15/2024 08:48 AM JANNETH
[2024-05-15 08:18] VITALS: BP 146/92; PULSE 90; RESP 16; TEMP 36.6; O2SAT 96; BMI 19.6
[2024-05-15 08:46] LABS: MANUAL DIFF FLAG NO
[2024-05-15 08:47] LABS: Basophils Absolute Auto 0.1 X10*3/uL (0.0-0.2); Basophils Percent Auto 0.8 % (0-2); Eosinophils Absolute Auto 1.1 X10*3/uL (0.0-0.4); Eosinophils Percent Auto 12.5 % (0-4); Hemoglobin 15.3 g/dl (14.0-18.0); Imm Gran Abs Auto 0.03 X10*3/uL (0.00-0.03); Imm Gran Pct Auto 0.3 % (0.0-0.4); Lymphocytes Absolute Auto 2.2 X10*3/uL (1.2-4.9); Lymphocytes Percent Auto 25.3 % (20-40); Mean Corpuscular Hemoglobin 30.8 pg (27.0-33.0); Mean Corpuscular Volume 90.7 fL (80.0-98.0); Mean Platelet Volume 9.9 fL (9.4-12.4); Monocytes Absolute Auto 0.5 X10*3/uL (0.1-1.2); Monocytes Percent Auto 5.5 % (2-11); Neutrophils Absolute Auto 4.8 x10*3/uL (2.0-8.3); Neutrophils Percent Auto 55.6 % (45-73); Platelet Count 174 X10*3/uL (160-400); Red Blood Count 4.96 X10*6/uL (4.60-5.80); White Blood Count 8.7 X10*3/uL (4.8-10.8)
[2024-05-15 09:08] LABS: Alanine Aminotransferase 33 U/L (0-40); Anion Gap 12 (12-20); Aspartate Amino Transferase 30 U/L (5-37); Bilirubin Total 0.5 mg/dL (0.0-1.0); Blood Urea Nitrogen 16 mg/dL (9-16); Carbon Dioxide 25 mmol/L (22-29); Chloride 108 mmol/L (96-108); Creatinine Clr Calc Pharmacy 77.3; Estimated Glomerular Filt Rate > 60; Glucose Random 95 mg/dL (60-115); Potassium 3.4 mmol/L (3.3-5.1); Sodium 142 mmol/L (135-145); Total Protein 6.8 g/dL (6.5-8.0)
[2024-05-15 09:29] LABS: Influenza A PCR NEGATIVE (Negative); Influenza B PCR NEGATIVE (Negative); Resp Syncy Virus RNA Qual PCR NEGATIVE (Negative); SARS COV2 PCR INHOUSE NEGATIVE (Negative)
--- NOTE | 2024-05-15 09:35 | ED.GENADULT ---
HPI - General Adult General Chief complaint: Dyspnea Stated complaint: asthma Time Seen by Provider: 05/15/24 09:25 Source: patient Mode of arrival: ambulatory Limitations: no limitations History of Present Illness ED Provider: Rosalba Nevarez PA-C HPI narrative: Patient is a 63 year old assigned male at with a history of asthma and COPD presenting to the emergency department today with increased wheezing and shortness of breath. Patient states that over the last day he has had shortness of breath and worsening wheezing. Patient states that he is out of his albuterol nebulizer solution. Patient denies any dizziness, lightheadedness, abdominal pain, nausea, vomiting, fever, chills, blurry vision, double vision, loss of vision, chest pain, back pain, night sweats, pain with urination, increased urinary frequency, increased urinary urgency, blood in his urine or stool, syncope or a near syncopal episode, recent trauma or falls, bowel incontinence, bladder incontinence, or any other complaints at this time. Relieving factors: none Exacerbating factors: none Associated symptoms: cough and shortness of breath Treatments prior to arrival: other (albuterol inhaler) Related Data Previous Rx's ?Medication ?Instructions ?Recorded prednisone 20 mg tablet 60 mg (3 x 20 mg) PO DAILY 5 days 09/28/23 #15 tabs albuterol sulfate 2.5 mg/3 mL 2.5 mg (3 mL) inhalation Q6H PRN 11/19/23 (0.083 %) solution for nebulization shortness of breath or wheezing #75 mL albuterol sulfate 90 mcg/actuation 1 inh inhalation QID PRN shortness 11/19/23 aerosol inhaler of breath or wheezing #8.5 grams azithromycin 250 mg tablet See Rx Instructions PO .COMPLEX #6 11/19/23 (Zithromax Z-Isai) tabs prednisone 20 mg tablet 20 mg PO BID #10 tabs 11/19/23 albuterol sulfate 90 mcg/actuation 2 inh inhalation Q4-6H PRN 12/26/23 breath activated powder inhaler shortness of breath or wheezing #1 ea doxycycline hyclate 100 mg capsule 100 mg PO BID 10 days #20 caps 12/26/23 prednisone 20 mg tablet 40 mg (2 x 20 mg) PO DAILY 5 days 12/26/23 #10 tabs prednisone 50 mg tablet 50 mg PO DAILY #4 tabs 01/29/24 prednisone 20 mg tablet 20 mg PO DAILY 12 days #26 tabs 02/27/24 albuterol sulfate 1.25 mg/3 mL 1.25 mg (3 mL) inhalation QID PRN 05/15/24 solution for nebulization bronchospasm #90 mL prednisone 20 mg tablet 20 mg PO DAILY 12 days #26 tabs 05/15/24 Allergies Allergy/AdvReac Type Severity Reaction Status Date / Time No Known Allergies Allergy Verified 05/15/24 08:21 Review of Systems Constitutional: Constitutional: Reports no additional constitutional complaints, Denies chills, Denies fever(s) and Denies night sweats Eyes: Eyes: Reports no additional eye complaints, Denies blurry vision, Denies change in vision, Denies diplopia, Denies eye discharge, Denies loss of vision and Denies eye pain ENT: Denies dizziness Cardiovascular: Cardiovascular: Reports no additional cardiovascular complaints, Denies chest pain, Denies lightheadedness, Denies Loss of Consciousness and Reports dyspnea Respiratory: Respiratory: Reports no additional respiratory complaints, Reports cough, Reports dyspnea and Reports wheezing Gastrointestinal: Gastrointestinal: Reports no additional gastrointestinal complaints, Denies abdominal pain, Denies melena, Denies hematochezia, Denies change in bowel habits and Denies change in stool character Genitourinary: Genitourinary: Reports no additional male genitourinary complaints, Denies hematuria, Denies oliguria, Denies difficulty urinating, Denies dysuria, Denies urinary frequency, Denies urinary hesitancy, Denies urinary incontinence and Denies urinary urgency Musculoskeletal: Musculoskeletal: Reports no additional musculoskeletal complaints, Denies numbness and Denies tingling Neurologic: Denies dizziness, Denies loss of vision, Denies numbness and Denies tingling Psychiatric: Psychiatric: Reports no additional psychiatric complaints Endocrine: Endocrine: Reports no additional endocrine complaints Hematologic/Lymphatic: Hematologic/Lymphatic: Reports no additional hematologic/lymphatic complaints Allergic/Immunologic: Allergic/Immunologic: Reports no additional allergic/immunologic complaints and Reports wheezing PMFSH Past Medical History Attestation statement: The following information was validated with the patient. Source: old records reviewed and nursing notes reviewed Medical History COPD (chronic obstructive pulmonary disease) Asthma Social History Social History Unable to assess alcohol history related to: Unknown Alcohol intake: current Alcohol intake frequency: a few times a month Smoked in Last 30 Days: Yes Use of substances other than those prescribed or required for medical reasons: No Substance Use Type: Marijuana Advance Directives: No Advance Directives Information Provided: No Do you have a plan to hurt others: No Plan Physical Exam ED Vital Signs: Vital Signs - 24 hr 05/15/24 08:18 05/15/24 10:01 05/15/24 10:02 Temperature 98 F 97.9 F Pulse Rate 90 87 83 Respiratory Rate 16 22 H 26 H Blood Pressure 146/92 H 166/99 H Pulse Oximetry 96 93 Oxygen Delivery Method Room Air Room Air BMI result Body Mass Index 19.6 Const General: cooperative, no acute distress, alert and awake Nutritional Appearance: well nourished Orientation/consciousness: patient oriented x3 Limitations: no limitations HENMT Head: Yes normal to inspection and Yes atraumatic Ears: hearing grossly normal bilaterally and external ears normal General nose exam: Normal external nose present, no nasal discharge noted and no epistaxis Face and sinus: Yes normal facial exam, No abrasion and No laceration Mouth: Normal oral and palatal mucosa present, no drooling and no muffled voice Eyes General: appearance normal, both eyes and all related structures Periorbital: periorbital findings normal Eyelids: Yes eyelids normal Conjunctivae: conjunctivae normal Pupils: Equal, round and reactive pupils present EOM: EOMs intact bilaterally Neck Neck: Yes normal visual inspection, Yes full ROM and Yes no lymphadenopathy Chest Chest palpation & inspection: normal inspection of the chest Resp Effort & Inspection: normal respiratory effort and able to speak in complete sentences Auscultation: wheezes scattered wheezes GI Inspection: Yes normal to inspection Neuro General: patient oriented x3 and moves all extremities Cranial nerves: Yes Equal, round and reactive pupils present Cognition (Neuro): normal cognition Extrem General: Yes normal to inspection, Yes full ROM and Yes capillary refill normal Psych Appearance: grossly normal Mental Status: mental status grossly normal Affect: normal affect Attitude: cooperative Thought process: Normal thought process present Thought content: Normal thought content present Insight: Good insight present (Psych) Medications Administered Discontinued Medications Generic Name Dose Route Start Last Admin Trade Name Freq PRN Reason Stop Dose Admin Albuterol Sulfate 5 mg/ 0 mg 05/15/24 10:01 05/15/24 10:05 Albuterol/Ipratropium 3 ml INHALE 05/15/24 10:02 7.5 each ONCE ONE Administration Methylprednisolone Sodium Succinate 60 mg 05/15/24 09:36 05/15/24 09:57 Methylprednisolone Sod Succ 125 Mg/2 Ml Vial IM 05/15/24 09:37 60 mg ONCE ONE Administration Medical Decision Making Medical Decision Making [facility] Narrative: Patient is a 63 year old assigned male at with a history of asthma and COPD presenting to the emergency department today with increased wheezing and shortness of breath. Patient's physical exam was as noted in the physical exam portion of this note. Patient's blood work was unremarkable. Patient's chest x-ray showed no acute process. I explained my physical exam findings as well as all test results to the patient. I answered all questions asked by the patient. Patient received a breathing treatment while in the department which, upon re-evaluation, he stated it helped his symptoms significantly. I stressed the importance of the patient taking his medication as directed (either prescribed or as the over the counter packaging recommends). I stressed the importance of the patient following up with his primary care provider. I stressed the importance of the patient returning to the emergency department immediately if his symptoms were to worsen or if he were to develop any dizziness, shortness of breath, difficulty breathing, chest pain, blurry vision, loss of vision, nausea, vomiting, abdominal pain, fever, chills, back pain, or any other complaints. Patient verbalized agreement and understanding with this treatment plan and discharge. Differential Diagnosis Differential Diagnoses: The differential diagnosis associated with the presentation includes Asthma exacerbation URI Viral illness Cough Admission/Observation Consideration of admission/observation: Escalation of care including admission/observation considered Patient would have been admitted to the hospital had his work up had any findings where hospital admission was appropriate and his clinical presentation warranted hospital admission. Lab Data [facility] Lab Attestation statement: I reviewed the patient's lab results. My interpretation of these results are in the MDM Rationale portion of this note. 05/15/24 08:42 05/15/24 08:42 Labs: Lab Results 05/15/24 Range/Units 08:42 WBC 8.7 (4.8-10.8) X10*3/uL RBC 4.96 (4.60-5.80) X10*6/uL Hgb 15.3 (14.0-18.0) g/dl Hct 45.0 (42.0-52.0) % MCV 90.7 (80.0-98.0) fL MCH 30.8 (27.0-33.0) pg MCHC 34.0 (31.0-36.0) g/dl RDW 13.0 (11.0-16.0) % Plt Count 174 (160-400) X10*3/uL MPV 9.9 (9.4-12.4) fL Immature Gran % (Auto) 0.3 (0.0-0.4) % Neut % (Auto) 55.6 (45-73) % Lymph % (Auto) 25.3 (20-40) % Glasscock % (Auto) 5.5 (2-11) % Eos % (Auto) 12.5 H (0-4) % Baso % (Auto) 0.8 (0-2) % Lymph # (Auto) 2.2 (1.2-4.9) X10*3/uL Glasscock # (Auto) 0.5 (0.1-1.2) X10*3/uL Eos # (Auto) 1.1 H (0.0-0.4) X10*3/uL Baso # (Auto) 0.1 (0.0-0.2) X10*3/uL Abs Immat Gran (auto) 0.03 (0.00-0.03) X10*3/uL Absolute Neuts (auto) 4.8 (2.0-8.3) x10*3/uL Absolute Nucleated RBC 0.000 (0.0-0.012) X10*3/uL Nucleated RBC % (auto) 0.0 (0.0-0.2) /100WBC Sodium 142 (135-145) mmol/L Potassium 3.4 (3.3-5.1) mmol/L Chloride 108 (96-108) mmol/L Carbon Dioxide 25 (22-29) mmol/L Anion Gap 12 (12-20) BUN 16 (9-16) mg/dL Creatinine 0.82 (0.5-1.4) mg/dL Estim Creat Clear Calc 77.3 Estimated GFR > 60 Random Glucose 95 (60-115) mg/dL Calcium 9.0 (8.4-10.2) mg/dL Total Bilirubin 0.5 (0.0-1.0) mg/dL AST 30 (5-37) U/L ALT 33 (0-40) U/L Total Protein 6.8 (6.5-8.0) g/dL Albumin 4.0 (3.5-5.0) g/dL Influenza Type A (PCR) NEGATIVE (Negative) Influenza Type B (PCR) NEGATIVE (Negative) RSV RNA Qual (PCR) NEGATIVE (Negative) SARS-CoV-2 RNA (RT-PCR) NEGATIVE (Negative) Independent Interpretation I performed an independent interpretation of an: Plain X-Ray Interpretation: My interpretation is in agreement with the radiologist's impression of this imaging study. EXAMINATION: XR CHEST 1 VIEW HISTORY: SOB COMPARISON: Comparison is made with the prior examination dated 02/27/2024. FINDINGS: A single PA view of the chest is submitted. There is minimal scarring in the lingula. The lungs are otherwise clear. There is no pleural effusion, pneumothorax, or pulmonary vascular congestion. The heart is normal in size. The bones are intact. XR/XR chest 1V IMPRESSION: No acute cardiopulmonary abnormality. Electronically signed by: Marko Lam MD 05/15/2024 08:48 AM EST Dictated By: Marko Lam MD Signed By: Electronically signed by Marko Lam MD 05/15/24 0872 Radiology Impression Discussion of test interpretation with radiology: I have reviewed the radiologist's reading. Discharge Plan Discharge Clinical Impression: Asthma with exacerbation Patient Disposition: Home, Self-Care Instructions: Asthma (DC), Wheezing (ED) Additional Instructions: Follow up with your primary care provider. Return to the emergency department immediately if your symptoms worsen or if you develop any dizziness, shortness of breath, difficulty breathing, chest pain, blurry vision, loss of vision, nausea, vomiting, abdominal pain, fever, chills, back pain, or any other complaints. Prescriptions: New prednisone 20 mg tablet 20 mg PO DAILY 12 Days Qty: 26 0RF Rx Instructions: Take 3 tablets for 5 days THEN; Take 2 tablets for 4 days THEN; Take 1 tablet for 3 days albuterol sulfate 1.25 mg/3 mL solution for nebulization 1.25 mg inhalation QID PRN (Reason: bronchospasm) Qty: 90 0RF No Action doxycycline hyclate 100 mg capsule 100 mg PO BID 10 Days Qty: 20 0RF albuterol sulfate 90 mcg/actuation aerosol powdr breath activated 2 inh inhalation Q4-6H PRN (Reason: shortness of breath or wheezing) Qty: 1 0RF prednisone 20 mg tablet 40 mg PO DAILY 5 Days Qty: 10 0RF prednisone 50 mg tablet 50 mg PO DAILY Qty: 4 0RF prednisone 20 mg tablet 20 mg PO DAILY 12 Days Qty: 26 0RF Rx Instructions: Take 3 tablets for 5 days THEN; Take 2 tablets for 4 days THEN; Take 1 tablet for 3 days prednisone 20 mg tablet 60 mg PO DAILY 5 Days Qty: 15 0RF prednisone 20 mg tablet 20 mg PO BID Qty: 10 0RF azithromycin [Zithromax Z-Isai] 250 mg tablet See Rx Instructions .ROUTE .COMPLEX Qty: 6 0RF Rx Instructions: For 250 mg dose pack: take 500 mg today (day 1), then 250 mg for 4 days (days 2-5) albuterol sulfate 90 mcg/actuation HFA aerosol inhaler 1 inh inhalation QID PRN (Reason: shortness of breath or wheezing) Qty: 8.5 0RF albuterol sulfate 2.5 mg /3 mL (0.083 %) solution for nebulization 2.5 mg inhalation Q6H PRN (Reason: shortness of breath or wheezing) Qty: 75 0RF Referrals: Fabrice Gruber MD [Primary Care Provider] - Print Language: Bengali
[2024-05-15] MEDS: methylPREDNISolone Sod Succ 125 MG/2 ML VIAL 60 MG IM (09:57)
[2024-05-15 10:01] VITALS: BP 166/99; PULSE 87; RESP 22; TEMP 36.6; O2SAT 93
[2024-05-15 10:02] VITALS: PULSE 83; RESP 26; O2SAT 93
[2024-05-15] MEDS: Albuterol Sulfate 5 MG, Albuterol/Iprat 2.5/0.5MG 3 ML 3 ML INHALE (10:05)
--- NOTE | 2024-05-15 10:08 | PC.NURSE ---
pt is alert and oriented, skin appropriate for ethnicity, respirations slightly labored breathing about 20-22, lip purse breathing, ls wheezing through out all cunningham, pt reports feeling really sob x2 days with intermittent cough, pt is sating anywhere from 91-93% on room air, ns on the portable monitor, denies pain
--- NOTE | 2024-05-15 11:20 | PC.NURSE ---
pt reports feeling better
[2024-05-15 11:33] VITALS: BP 000/00; PULSE 83; RESP 26; TEMP -17.7; TEMP 0; O2SAT 93
[2024-05-15 14:08] LABS: Alkaline Phosphatase 75 U/L (39-117)
== END 2024-05-15 11:34 | disposition home or self-care (01) ==
PROVIDERS: Emergency Provider Emergency Medicine; PCP Internal Medicine
DX: J45.901 Unspecified asthma with (acute) exacerbation (principal); R06.00 Dyspnea, unspecified; R06.02 Shortness of breath; Z03.818 Encounter for observation for suspected exposure to other biological agents ruled out; Z79.899 Other long term (current) drug therapy
CPT/HCPCS: 0241U; 36415; 71045; 80053; 85025; 94640; 96372; 99284; J2919

== ENCOUNTER → 2024-05-15 08:32 | Outpatient (BNV) | payer OTHER, SELFPAY | PROVIDERS: PCP Internal Medicine; Visit Provider Radiology Diagnostic Radiology | DX: R06.02 Shortness of breath (principal) | CPT/HCPCS: 71045 ==

== ENCOUNTER 2024-05-31 08:49 | Observation (INO) | payer OTHER, SELFPAY ==
[2024-05-31] VITALS (7 sets, daily range): BP systolic 126–158; BP diastolic 80–90; PULSE 88–104; RESP 14–30; TEMP 37–37.2; O2SAT 93–99
--- NOTE | ~2024-05-31 | XR_ITS ---
CLINICAL HISTORY: Coughing. Pneumonia? 2 view chest x-ray Comparison: CR/SR - XR CHEST 1V - 05/15/24 08:41 EST CR/SR - XR CHEST 1V - 02/27/24 03:26 EST CR/CA/SR - XR CHEST 1V - 01/29/24 03:05 EDT Findings: No consolidation or effusion. Heart size is normal. No acute fracture. IMPRESSION: 1. No acute findings. This document has been electronically signed by: Royer Elise MD on 05/31/2024 11:09:40
--- NOTE | ~2024-05-31 | CT_ITS ---
CLINICAL HISTORY: SOB. PE Pnuemonia? CTA chest with 3-D postprocessing Comparison: CR - XR CHEST 2V - 05/31/24 10:[address]/[place] - CT ANGIO CHEST PE PROTOCOL - 12/26/23 10:00 EDT Findings: Study quality is adequate for the diagnosis of pulmonary embolism. No pulmonary embolism. Heart size within normal limits. RV/LV ratio is normal. Severe calcified coronary artery disease. No aortic dissection or aneurysm. Trace calcified atherosclerotic disease. No lymphadenopathy. Mild scarring at the lung apices and at the left lung base. Mild paraseptal emphysema. Moderate bronchial wall thickening with secretions in the airways. No pneumothorax or pleural effusion. No acute osseous or soft tissue abnormality. No acute pathology in the imaged portion of the upper abdomen. Right renal cyst. Liver cysts and subcentimeter low attenuating lesions which are too small to characterize Impression: No pulmonary embolism. Moderate bronchial wall thickening with secretions in the airways may indicate bronchitis. This document has been electronically signed by: Veronica Sylvester MD on 05/31/2024 16:00:57
[2024-05-31] MEDS: Albuterol Sulfate 5 MG, Albuterol/Iprat 2.5/0.5MG 3 ML 3 ML INHALE (09:01)
[2024-05-31] MEDS: methylPREDNISolone Sod Succ 125 MG/2 ML VIAL 60 MG IM (09:59)
--- NOTE | 2024-05-31 10:10 | ED_ITS ---
HPI - General Adult General Chief complaint: Dyspnea Stated complaint: sob Time Seen by Provider: 05/31/24 09:36 Source: patient Mode of arrival: ambulatory Limitations: no limitations History of Present Illness ED Provider: Demetrio Nava HPI narrative: 63-year-old male history of asthma COPD presents to ED for coughing up white phlegm, shortness of breath, and wheezing. Patient states he has been having the flu since last week/viral syndrome. Was prescribed prednisone albuterol states it helps patient still having coughing wheezing shortness of breath. Patient states he still smokes black caused smoking for the past 4 days. Patient denies any leg swelling, pitting edema, calf pain, pleurisy, recent long travel, recent surgery. Patient denies any coughing up blood Related Data Home Medications ?Medication ?Instructions ?Recorded ?Confirmed albuterol sulfate 2.5 mg/3 mL 2.5 mg inhalation Q6H PRN wheezing 05/31/24 05/31/24 (0.083 %) solution for nebulization albuterol sulfate 90 mcg/actuation 2 inh inhalation Q6H PRN shortness 05/31/24 05/31/24 breath activated powder inhaler of breath or wheezing budesonide-formoterol HFA 160 2 puff inhalation BID 05/31/24 05/31/24 mcg-4.5 mcg/actuation aerosol inhaler tiotropium bromide 2.5 2 puff inhalation DAILY 05/31/24 05/31/24 mcg/actuation mist for inhalation (Spiriva Respimat) Allergies Allergy/AdvReac Type Severity Reaction Status Date / Time No Known Allergies Allergy Verified 05/31/24 08:55 Review of Systems 2 Review of Systems: SOB, wheezing, coughing Yes all other systems are reviewed and are negative [facility] Past Medical History Medical History (Updated 06/01/24 @ 06:39 by JUAN Saab) COPD (chronic obstructive pulmonary disease) Asthma Social History Social History Unable to assess alcohol history related to: Unknown Alcohol intake: current Alcohol intake frequency: a few times a month Patient Tobacco Use Status: Current everyday Tobacco user Use of substances other than those prescribed or required for medical reasons: Unknown Substance Use Type: Marijuana Advance Directives: No Advance Directives Information Provided: Yes Nutrition Risks: No Nutritional Risk Physical Exam ED Vital Signs: Vital Signs - 24 hr 05/31/24 08:51 05/31/24 09:03 05/31/24 10:47 Temperature 98.9 F 98.6 F Pulse Rate 102 H 93 104 H Respiratory Rate 24 H 24 H 16 Blood Pressure 158/90 H 126/89 Pulse Oximetry 96 94 Oxygen Delivery Method Room Air Room Air 05/31/24 12:17 05/31/24 12:40 Temperature Pulse Rate 97 96 Respiratory Rate 18 30 H Blood Pressure 155/80 H Pulse Oximetry 99 Oxygen Delivery Method Room Air BMI result Body Mass Index 20.0 Const General: cooperative, healthy appearing, comfortable, no acute distress, well developed, alert, awake and Physically active Orientation/consciousness: patient oriented x3 HENMT Head: Yes normal to inspection, Yes No palpable skull fracture present and Yes normocephalic Eyes General: appearance normal, both eyes and all related structures Neck Neck: Yes normal visual inspection, Yes full ROM, Yes no lymphadenopathy, Yes no meningeal signs, Yes trachea midline, Yes supple, No anterior neck swelling and No tender Chest Chest palpation & inspection: normal inspection of the chest and normal palpation of entire chest wall Resp Effort & Inspection: normal respiratory effort Auscultation: wheezes expiratory wheezes and throughout Cardio Jugular venous distension: no JVD Heart sounds: S1 normal heart sound present and S2 normal heart sound present GI Inspection: Yes normal to inspection General: Yes no CVA tenderness Back/Spine/Pelvis Back: no CVA tenderness and No back tenderness Skin General skin exam: no rashes or lesions noted, elasticity normal and turgor normal Neuro General: patient oriented x3, gait normal, tone normal, moves all extremities, Normal light touch and pain sensation, no meningeal signs, no focal motor deficits, CN's II-XI intact bilaterally and normal sensation to monofilament Extrem Other: bilateral lower extremities negative for swelling, pitting edema, or calf tenderness. Psych Appearance: grossly normal, well kempt and not disheveled Medications Administered Generic Name Dose Route Start Last Admin Trade Name Freq PRN Reason Stop Dose Admin Albuterol/Ipratropium 3 ml 05/31/24 20:00 06/01/24 06:01 Albuterol/Iprat 2.5/0.5mg 3 Ml Ampul.Neb INHALE 3 ml RQ4H JESUS ALBERTO Administration Enoxaparin Sodium 40 mg 05/31/24 18:00 05/31/24 19:37 Enoxaparin Sodium 40 Mg/0.4 Ml Syringe SUBCUT 40 mg Q24H JESUS ALBERTO Administration Guaifenesin 10 ml 05/31/24 18:00 06/01/24 02:30 Guaifenesin 200 Mg/10 Ml 10 Ml Liquid PO 10 ml Q4H JESUS ALBERTO Administration Methylprednisolone Sodium Succinate 40 mg 05/31/24 21:00 05/31/24 20:58 Methylprednisolone Sod Succ 40 Mg/Ml Vial IVPUSH 40 mg BID JESUS ALBERTO Administration Nicotine 21 mg 05/31/24 18:15 05/31/24 19:37 Nicotine 21 Mg Patch.Td24 TRANSDERMA 21 mg DAILY JESUS ALBERTO Administration Sodium Chloride 3 ml 06/01/24 00:00 06/01/24 00:56 0.9 % Sodium Chloride Flush 3 Ml Syringe IVFLUSH 3 ml QSHIFT JESUS ALBERTO Administration Discontinued Medications Generic Name Dose Route Start Last Admin Trade Name Freq PRN Reason Stop Dose Admin Albuterol Sulfate 5 mg/ 0 mg 05/31/24 08:56 05/31/24 09:01 Albuterol/Ipratropium 3 ml INHALE 05/31/24 08:57 1 each ONCE ONE Administration Albuterol Sulfate 2.5 mg/ 0 mg 05/31/24 12:06 05/31/24 12:15 Albuterol/Ipratropium 3 ml INHALE 05/31/24 12:07 1 dose ONCE ONE Administration Magnesium Sulfate 2 gm in 50 mls @ 25 mls/hr 05/31/24 10:50 05/31/24 13:59 Magnesium Sulfate/H2o IV 05/31/24 12:49 Infused ONCE ONE Infusion Iohexol 65 ml 05/31/24 14:40 05/31/24 14:40 Iohexol 350 Mg/Ml 100 Ml Infus..Btl IV 05/31/24 14:41 65 ml ONCE ONE Administration Methylprednisolone Sodium Succinate 60 mg 05/31/24 08:52 05/31/24 09:59 Methylprednisolone Sod Succ 125 Mg/2 Ml Vial IM 05/31/24 08:53 60 mg ONCE ONE Administration Medical Decision Making Medical Decision Making MDM Narrative: 63-year-old male presents to ED for URI asthma exacerbation. Patient had radiating given ED bronchodilator and Solu-Medrol IM from triage. Patient states significant wheezing. Chest x-ray will be added. Mother ED bronchodilators ordered. We will do ambulatory oxygen test reveals desaturation will do labs and IV medication. 11:02pm: Ambulatory oxygen saturation 94%. Patient still has significant wheezing. Magnesium labs ED bronchodilator ordered. 1:59: Patient no longer has wheezing. Patient states he feels better. We will do repeat ambulatory oxygen test 2:17pm; on ambulatory oxygen saturation. O2 saturation dropped to 91% heart rate went up to 126. Was sent for chest CTA to check for pneumonia or PE. Lactic acid blood culture ordered. 4:38pm: Case presents to hospitalist for admission. Differential Diagnosis Differential Diagnoses: The differential diagnosis associated with the presentation includes (CoPD, asthma, PE) Admission/Observation Consideration of admission/observation: Escalation of care including admission/observation considered Consult Healthcare Provider Management of the patient was discussed with: Hospitalist (Dr. Segovia) Lab Data MDM Lab Attestation statement: I reviewed the patient's lab results. 05/31/24 11:11 05/31/24 11:11 Labs: Lab Results 05/31/24 05/31/24 05/31/24 Range/Units 11:11 13:44 15:13 WBC 7.0 (4.8-10.8) X10*3/uL RBC 4.78 (4.60-5.80) X10*6/uL Hgb 14.3 (14.0-18.0) g/dl Hct 43.2 (42.0-52.0) % MCV 90.4 (80.0-98.0) fL MCH 29.9 (27.0-33.0) pg MCHC 33.1 (31.0-36.0) g/dl RDW 12.8 (11.0-16.0) % Plt Count 186 (160-400) X10*3/uL MPV 9.6 (9.4-12.4) fL Immature Gran % (Auto) 0.3 (0.0-0.4) % Neut % (Auto) 72.7 (45-73) % Lymph % (Auto) 14.3 L (20-40) % Banks % (Auto) 5.3 (2-11) % Eos % (Auto) 7.0 H (0-4) % Baso % (Auto) 0.4 (0-2) % Lymph # (Auto) 1.0 L (1.2-4.9) X10*3/uL Banks # (Auto) 0.4 (0.1-1.2) X10*3/uL Eos # (Auto) 0.5 H (0.0-0.4) X10*3/uL Baso # (Auto) 0.0 (0.0-0.2) X10*3/uL Abs Immat Gran (auto) 0.02 (0.00-0.03) X10*3/uL Absolute Neuts (auto) 5.1 (2.0-8.3) x10*3/uL Absolute Nucleated RBC 0.000 (0.0-0.012) X10*3/uL Nucleated RBC % (auto) 0.0 (0.0-0.2) /100WBC PT 13.1 H (10.9-12.4) SEC INR 1.1 (0.9-1.1) APTT 32.2 (26.0-36.8) SEC Sodium 140 (135-145) mmol/L Potassium 4.0 (3.3-5.1) mmol/L Chloride 108 (96-108) mmol/L Carbon Dioxide 24 (22-29) mmol/L Anion Gap 12 (12-20) BUN 6 L (9-16) mg/dL Creatinine 0.75 (0.5-1.4) mg/dL Estim Creat Clear Calc 86.5 Estimated GFR > 60 Random Glucose 111 (60-115) mg/dL Lactic Acid 1.7 (0.5-2.0) mmol/L Calcium 9.0 (8.4-10.2) mg/dL Total Bilirubin 0.8 (0.0-1.0) mg/dL AST 31 (5-37) U/L ALT 38 (0-40) U/L Alkaline Phosphatase 70 (39-117) U/L Troponin I High Sens 6.3 D 6.5 (<3.5-35.0) ng/L B-Natriuretic Peptide 21 (<100) pg/mL Total Protein 6.9 (6.5-8.0) g/dL Albumin 4.0 (3.5-5.0) g/dL Influenza Type A (PCR) NEGATIVE (Negative) Influenza Type B (PCR) NEGATIVE (Negative) RSV RNA Qual (PCR) NEGATIVE (Negative) SARS-CoV-2 RNA (RT-PCR) NEGATIVE (Negative) Independent Interpretation I performed an independent interpretation of an: EKG (negative STEMI) and CT Scan Independent Historian Clinical information obtained from an independent historian. History obtained from or confirmed by: Other (patient) Critical Care Time Critical Care Time Critical Care Time: Yes Total Critical Care Time: 600 Attestation: wheezing. 02 sat drops to 91% on ambulation. mag, solumedrol, albuterol ordered. admit to hospitalist Discharge Plan Discharge Clinical Impression: COPD (chronic obstructive pulmonary disease), Asthma with exacerbation Patient Disposition: Admitted As Inpatient
--- NOTE | 2024-05-31 10:50 | ECG_ITS ---
Test Reason : SOB Blood Pressure : */* mmHG Vent. Rate : 93 BPM Atrial Rate : 93 BPM P-R Int : 142 ms QRS Dur : 94 ms QT Int : 360 ms P-R-T Axes : 75 72 75 degrees QTcB Int : 447 ms Sinus rhythm with Premature supraventricular complexes Incomplete right bundle branch block Borderline ECG When compared with ECG of 29-Jan-2024 02:40, Premature supraventricular complexes are now Present Referred By: Demetrio Nava Electronically Signed By: ARLENE SANDHU MD
[2024-05-31 11:16] LABS: MANUAL DIFF FLAG NO
[2024-05-31 11:17] LABS: Basophils Percent Auto 0.4 % (0-2); Eosinophils Absolute Auto 0.5 X10*3/uL (0.0-0.4); Hematocrit 43.2 % (42.0-52.0); Hemoglobin 14.3 g/dl (14.0-18.0); Imm Gran Abs Auto 0.02 X10*3/uL (0.00-0.03); Imm Gran Pct Auto 0.3 % (0.0-0.4); Lymphocytes Percent Auto 14.3 % (20-40); Mean Corpuscular HGB Conc 33.1 g/dl (31.0-36.0); Mean Corpuscular Hemoglobin 29.9 pg (27.0-33.0); Mean Corpuscular Volume 90.4 fL (80.0-98.0); Mean Platelet Volume 9.6 fL (9.4-12.4); Monocytes Absolute Auto 0.4 X10*3/uL (0.1-1.2); Monocytes Percent Auto 5.3 % (2-11); Neutrophils Absolute Auto 5.1 x10*3/uL (2.0-8.3); Neutrophils Percent Auto 72.7 % (45-73); Platelet Count 186 X10*3/uL (160-400); Red Blood Count 4.78 X10*6/uL (4.60-5.80); Red Cell Distribution Width 12.8 % (11.0-16.0)
[2024-05-31 11:24] LABS: INTERNATIONAL NORM RATIO 1.1 (0.9-1.1); Prothrombin Time 13.1 SEC (10.9-12.4)
[2024-05-31 11:27] LABS: Partial Thromboplastin Time 32.2 SEC (26.0-36.8)
[2024-05-31 11:32] LABS: Alanine Aminotransferase 38 U/L (0-40); Alkaline Phosphatase 70 U/L (39-117); Anion Gap 12 (12-20); Aspartate Amino Transferase 31 U/L (5-37); Bilirubin Total 0.8 mg/dL (0.0-1.0); Blood Urea Nitrogen 6 mg/dL (9-16); Carbon Dioxide 24 mmol/L (22-29); Chloride 108 mmol/L (96-108); Creatinine Clr Calc Pharmacy 86.5; Estimated Glomerular Filt Rate > 60; Glucose Random 111 mg/dL (60-115); Sodium 140 mmol/L (135-145); Total Protein 6.9 g/dL (6.5-8.0)
[2024-05-31 11:37] LABS: B Type Natriuretic Peptide 21 pg/mL (<100)
[2024-05-31 11:39] LABS: Troponin-I High Sensitivity 6.3 ng/L (<3.5-35.0)
[2024-05-31] MEDS: Magnesium Sulfate/H2O 2 GM/50 ML PIGGYBACK IV (11:55)
[2024-05-31] MEDS: Albuterol Sulfate 2.5 MG, Albuterol/Iprat 2.5/0.5MG 3 ML 3 ML INHALE (12:15)
[2024-05-31 14:30] LABS: Troponin-I High Sensitivity 6.5 ng/L (<3.5-35.0)
[2024-05-31] MEDS: iohexoL 350 MG/ML 100 ML INFUS..BTL 65 ML IV (14:40)
[2024-05-31 15:35] LABS: Lactic Acid 1.7 mmol/L (0.5-2.0)
[2024-05-31 15:59] LABS: Influenza A PCR NEGATIVE (Negative); Influenza B PCR NEGATIVE (Negative); Resp Syncy Virus RNA Qual PCR NEGATIVE (Negative); SARS COV2 PCR INHOUSE NEGATIVE (Negative)
--- NOTE | 2024-05-31 17:42 | P.HPHOSP_ITS ---
History of Present Illness Date of Service: 05/31/24 Attending physician on admission: Jasmina Segovia Chief Complaint: sob 63 y/o M With pmhx asthma COPD, active smoker, also uses marijuana presents with coughing up white phlegm white yellowish phlegm, shortness of breath, and wheezing, he says he is having flu-like symptoms from at least 1-2 weeks' duration ,he did not check but he fell to URI like symptoms. In addition he says few of the people at his workplace has flu-like symptoms. He was in the ED 2 weeks back: Given prednisone and albuterol that time, he was using at home and did not help so decided to come to the hospital. In ED patient was given nebs, steroids, magnesium-is shortness of breath somewhat improving but getting more shortness of breath with exertion as well as become tachypneic/tachycardic: CTA negative for pulmonary embolism but possible bronchitis component. Patient denies any fever or chills or nausea or vomiting or abdominal pain or diarrhea or chest pain. Lab imaging reviewed: CBC and BMP seems fine. Chest x-ray negative, CTA-no pulmonary embolism, possible bronchitis. EKG:Sinus rhythm with Premature supraventricular complexes, ventricular rate 93/min. Review of Systems 2 Review of Systems: Yes all other systems are reviewed and are negative [facility] Medical History (Updated 05/31/24 @ 17:50 by Jasmina Segovia MD) COPD (chronic obstructive pulmonary disease) Asthma Social History Unable to assess alcohol history related to: Unknown Alcohol intake: current Alcohol intake frequency: a few times a month Substance Use Type: Marijuana Advance Directives: No Advance Directives Information Provided: Yes Meds Allergies Allergy/AdvReac Type Severity Reaction Status Date / Time No Known Allergies Allergy Verified 05/31/24 08:55 Active Medications: Current Medications Acetaminophen (Acetaminophen 325 Mg Tablet) 650 mg PO Q6H PRN PRN Reason: Pain, Mild 1-3,fever,headache Albuterol/Ipratropium (Albuterol/Iprat 2.5/0.5mg 3 Ml Ampul.Neb) 3 ml INHALE RQ4H JESUS ALBERTO Albuterol/Ipratropium (Albuterol/Iprat 2.5/0.5mg 3 Ml Ampul.Neb) 3 ml INHALE Q3H PRN PRN Reason: sob Calcium Carbonate (Calcium Carbonate 750 Mg Tab.Chew) 750 mg PO Q4H PRN PRN Reason: Heartburn Guaifenesin (Guaifenesin 200 Mg/10 Ml 10 Ml Liquid) 10 ml PO Q4H JESUS ALBERTO Magnesium Hydroxide (Milk Of Magnesia 30 Ml Oral.Susp) 30 ml PO DAILY PRN PRN Reason: Constipation Melatonin (Melatonin 3 Mg Tablet) 6 mg PO BEDTIME PRN PRN Reason: Insomnia Methylprednisolone Sodium Succinate (Methylprednisolone Sod Succ 40 Mg/Ml Vial) 40 mg IVPUSH BID JESUS ALBERTO Sodium Chloride (0.9 % Sodium Chloride Flush 3 Ml Syringe) 3 ml IVFLUSH QSHIFT JESUS ALBERTO Physical Exam 2 Vital Signs and Narrative: Vital Signs: Last Vital Signs Temp 98.6 F 05/31/24 10:47 Pulse 96 05/31/24 12:40 Resp 30 H 05/31/24 12:40 BP 155/80 H 05/31/24 12:40 Pulse Ox 99 05/31/24 12:40 O2 Del Method Room Air 05/31/24 12:40 BMI result Body Mass Index 20.0 Appearance: Alert.? Oriented X3.? sob with excersion Eyes: Pupils equal, round and reactive to light.? Sclera nonicteric.? ENT: Pharynx normal.? Moist mucous membranes. cvs: rrr, [id number]. res:air entry diminshed ,has b/l wheezing abd: no rebound or guarding ,nt, bs present. ext pulses present , no cyanosis . neuro: axo3 , nonfocal. Results Labs 05/31/24 11:11 05/31/24 11:11 Labs: Laboratory Results - last 24 hr 05/31/24 05/31/24 05/31/24 11:11 13:44 15:13 MCV 90.4 MCH 29.9 MCHC 33.1 RDW 12.8 Plt Count 186 MPV 9.6 Immature Gran % (Auto) 0.3 Neut % (Auto) 72.7 Lymph % (Auto) 14.3 L [place] % (Auto) 5.3 Eos % (Auto) 7.0 H Baso % (Auto) 0.4 Lymph # (Auto) 1.0 L [place] # (Auto) 0.4 Eos # (Auto) 0.5 H Baso # (Auto) 0.0 Abs Immat Gran (auto) 0.02 Absolute Neuts (auto) 5.1 Absolute Nucleated RBC 0.000 Nucleated RBC % (auto) 0.0 PT 13.1 H INR 1.1 APTT 32.2 Anion Gap 12 Estim Creat Clear Calc 86.5 Estimated GFR > 60 Random Glucose 111 Lactic Acid 1.7 Calcium 9.0 Total Bilirubin 0.8 AST 31 ALT 38 Alkaline Phosphatase 70 Troponin I High Sens 6.3 D 6.5 B-Natriuretic Peptide 21 Total Protein 6.9 Albumin 4.0 Influenza Type A (PCR) NEGATIVE Influenza Type B (PCR) NEGATIVE RSV RNA Qual (PCR) NEGATIVE SARS-CoV-2 RNA (RT-PCR) NEGATIVE Assessment and Plan (1) Acute bronchitis: Qualifiers: Bronchitis organism: unspecified organism Qualified Code(s): J20.9 - Acute bronchitis, unspecified Status: Acute Plan 63 y/o M With pmhx asthma COPD, active smoker, also uses marijuana presents for 1-2 weeks' duration of flu-like symptoms, worsening of shortness of breath. Acute COPD / asthma mild intermittent exacerbation with acute bronchitis component. Patient tried home steroids p.o. and and bronchodilator did not help. Check areas panel Tachycardia due to nebulizers Started on nebs, steroids, added ceftriaxone for bronchitis. Active smoker: Nicotine patch added. Strongly advised to abstain from smoking and advised to hold off on marijuana might cause respiratory symptoms also. DVT prophylaxis: SubQ Lovenox. Patient would benefit at least observation stay considering COPD exacerbation not improving with outpatient management with steroids/nebs and has component of acute bronchitis: Patient is nebs, steroids, IV antibiotics, and monitoring of respiratory status. Above management discussed with the patient in detail length he understand and in agreement with the plan, time spent 70 minute. patient is full code. Quality Stroke Does the patient have a stroke diagnosis?: No VTE Prior VTE?: No VTE Risk Level:: Medical - moderate - high VTE Device Contraindication: Patient Refused VTE Drug Contraindication: N/A - Med Ordered
--- NOTE | 2024-05-31 18:27 | PHA.MEDREC ---
Addendum entered by Felipe Dobson RPh 05/31/24 18:42: Med rec was reviewed by [facility]. Original Note: Pharmacy Consult ? Medication Reconciliation Pharmacy has completed the medication reconciliation. Spoke to pt to confirm meds.
[2024-05-31] MEDS: Nicotine 21 MG PATCH.TD24 TRANSDERMA (19:37)
[2024-05-31] MEDS: Enoxaparin Sodium 40 MG/0.4 ML SYRINGE SUBCUT (19:37)
[2024-05-31] MEDS: guaiFENesin 200 MG/10 ML 10 ML LIQUID PO ×2 (19:37→21:00)
[2024-05-31] MEDS: methylPREDNISolone Sod Succ 40 MG/ML VIAL IVPUSH (20:58)
[2024-05-31] MEDS: Albuterol/Iprat 2.5/0.5MG 3 ML AMPUL.NEB INHALE (21:28)
[2024-06-01] VITALS (9 sets, daily range): BP systolic 130–158; BP diastolic 76–89; PULSE 88–114; RESP 12–20; TEMP 36.3–37.1; O2SAT 94–99; BMI 19.2
[2024-06-01] MEDS: Albuterol/Iprat 2.5/0.5MG 3 ML AMPUL.NEB INHALE ×4 (00:27→12:23)
[2024-06-01] MEDS: 0.9 % Sodium Chloride Flush 3 ML SYRINGE IVFLUSH ×3 (00:56→22:32)
[2024-06-01] MEDS: guaiFENesin 200 MG/10 ML 10 ML LIQUID PO ×6 (02:30→22:28)
--- NOTE | 2024-06-01 03:10 | PC.NURSE ---
Pt medicated with scheduled med, offers no complaints. Resting on stretcher, skin pwd respirations even unlabored. Continues to await bed assignment for admission.
[2024-06-01 09:45] LABS: Adenovirus PCR Not Detected (Not Detect.); Bordetella parapertussis PCR Not Detected (Not Detect.); Bordetella pertussis PCR Not Detected (Not Detect.); Chlamydia pneumoniae PCR Not Detected (Not Detect.); Coronavirus 229E PCR Not Detected (Not Detect.); Coronavirus HKU1 PCR Not Detected (Not Detect.); Coronavirus NL63 PCR Not Detected (Not Detect.); Coronavirus OC43 PCR Not Detected (Not Detect.); Human metapneumovirus PCR Not Detected (Not Detect.); Influenza A PCR Not Detected (Not Detect.); Influenza B PCR Not Detected (Not Detect.); Mycoplasma pneumoniae PCR Not Detected (Not Detect.); Parainfluenza 1 PCR Not Detected (Not Detect.); Parainfluenza 2 PCR Not Detected (Not Detect.); Parainfluenza 3 PCR Not Detected (Not Detect.); Parainfluenza 4 PCR Not Detected (Not Detect.); RSV PCR Not Detected (Not Detect.); Rhino/Enterovirus PCR Not Detected (Not Detect.)
[2024-06-01 09:53] LABS: SARS-CoV-2 PCR Not Detected (Not Detect.)
[2024-06-01] MEDS: Nicotine 21 MG PATCH.TD24 TRANSDERMA (11:22)
[2024-06-01] MEDS: methylPREDNISolone Sod Succ 40 MG/ML VIAL IVPUSH ×2 (11:55→20:50)
[2024-06-01 12:06] LABS: Thyroid Stimulating Hormone 0.12 uIU/mL (0.32-4.0)
[2024-06-01] MEDS: LORazepam 0.5 MG TABLET PO (13:43)
--- NOTE | 2024-06-01 14:28 | MHC.CM.PN ---
pt lives alone works partime his car is [ in [facility] parking beto salcedo plan home no services
[2024-06-01] MEDS: Magnesium Sulfate/H2O 2 GM/50 ML PIGGYBACK IV (14:54)
[2024-06-01 15:30] LABS: Free T4 (Free Thyroxine) 1.22 ng/dL (0.71-1.85)
--- NOTE | 2024-06-01 18:37 | HO.PM.IMPN ---
Subjective Subjective Date of Service: 06/01/24 Interval History: asthma execerebation Review of Systems sob somewhat improving still tahcycardic Physical Exam Vital Signs: Vital Signs: Last Vital Signs Temp 97.3 F 06/01/24 10:00 Pulse 109 H 06/01/24 12:24 Resp 16 06/01/24 12:24 BP 130/81 06/01/24 10:00 Pulse Ox 99 06/01/24 10:00 O2 Del Method Room Air 06/01/24 10:00 BMI result Body Mass Index 20.0 Appearance: Alert.? Oriented X3. cvs: rrr, [id number] , no murmur res: air enrty diminshed,b/l wheezing abd: no rebound or guarding ,nt, bs present. ext pulses present , no cyanosis. neuro: axo3 , nonfocal. Objective Data Active Medications Acetaminophen (Acetaminophen 325 Mg Tablet) 650 mg PO Q6H PRN PRN Reason: Pain, Mild 1-3,fever,headache Albuterol Sulfate (Albuterol Sulfate (0.083%) 2.5 Mg/3 Ml Vial.Neb) 2.5 mg INHALE Q6H PRN PRN Reason: wheezing Albuterol Sulfate (Albuterol Sulfate 90 Mcg 8 Gm Inhaler) 2 puff INHALE Q6H PRN PRN Reason: shortness of breath or wheezing Albuterol/Ipratropium (Albuterol/Iprat 2.5/0.5mg 3 Ml Ampul.Neb) 3 ml INHALE RQ4H [facility] Last Admin: 06/01/24 16:40 Dose: Not Given Documented By: ALAN Non-Admin Reason: Patient Refused Albuterol/Ipratropium (Albuterol/Iprat 2.5/0.5mg 3 Ml Ampul.Neb) 3 ml INHALE Q3H PRN PRN Reason: sob Calcium Carbonate (Calcium Carbonate 750 Mg Tab.Chew) 750 mg PO Q4H PRN PRN Reason: Heartburn Enoxaparin Sodium (Enoxaparin Sodium 40 Mg/0.4 Ml Syringe) 40 mg SUBCUT Q24H [facility] Last Admin: 05/31/24 19:37 Dose: 40 mg Documented By: PARTH Fluticasone/Vilanterol (Fluticasone/Vilanterol 200/25 Blst.W.Dev) 1 puff INHALE [facility] Guaifenesin (Guaifenesin 200 Mg/10 Ml 10 Ml Liquid) 10 ml PO Q4H [facility] Last Admin: 06/01/24 15:58 Dose: 10 ml Documented By: MELISSA Magnesium Hydroxide (Milk Of Magnesia 30 Ml Oral.Susp) 30 ml PO DAILY PRN PRN Reason: Constipation Melatonin (Melatonin 3 Mg Tablet) 6 mg PO BEDTIME PRN PRN Reason: Insomnia Methylprednisolone Sodium Succinate (Methylprednisolone Sod Succ 40 Mg/Ml Vial) 40 mg IVPUSH BID [facility] Last Admin: 06/01/24 11:55 Dose: 40 mg Documented By: MADDENL Nicotine (Nicotine 21 Mg Patch.Td24) 21 mg TRANSDERMA DAILY [facility] Last Admin: 06/01/24 11:22 Dose: 21 mg Documented By: MELISSA Sodium Chloride (0.9 % Sodium Chloride Flush 3 Ml Syringe) 3 ml IVFLUSH QSHIFT [facility] Last Admin: 06/01/24 17:11 Dose: Not Given Documented By: MELISSA Non-Admin Reason: See Note Tiotropium [place] (Tiotropium [place] 2.5 Mcg 1 Puff/2.5 Mcg Mist.Inhal) 2 puff INHALE RDAILY [facility] Labs 05/31/24 11:11 05/31/24 11:11 Labs: Laboratory Results - last 24 hr 06/01/24 06/01/24 07:13 11:26 TSH 0.12 L Free T4 1.22 Respiratory Panel Linda See Note Adenovirus (Rapid PCR) Not Detected B.pert (TEM-PCR) Not Detected B.parapertussis DNA PCR Not Detected C. pneumoniae DNA (PCR) Not Detected Coronavirus OC43 (PCR) Not Detected Coronavirus HKU1 (PCR) Not Detected Coronavirus 229E (PCR) Not Detected Coronavirus NL63 (PCR) Not Detected Human Metapneumovir PCR Not Detected Influenza A (RT-PCR) Not Detected Influenza B (RT-PCR) Not Detected M. pneumoniae (PCR) Not Detected Parainfluenza 1 (PCR) Not Detected Parainfluenza 2 (PCR) Not Detected Parainfluenza 3 (PCR) Not Detected Parainfluenza 4 (PCR) Not Detected RSV (PCR) Not Detected Entero/Rhino (PCR) Not Detected SARS-CoV-2 RNA (RT-PCR) Not Detected Microbiology Microbiology Results: Microbiology 05/31/24 15:13 Blood Culture - Preliminary Blood - Venous No growth after 24 hours. 05/31/24 15:13 Blood Culture - Preliminary Blood - Venous No growth after 24 hours. Assessment and Plan (1) Asthma with exacerbation: Status: Acute (2) Acute bronchitis: Status: Acute Assessment and Plan: 63 y/o M With pmhx asthma COPD, active smoker, also uses marijuana presents for 1-2 weeks' duration of flu-like symptoms, worsening of shortness of breath. Acute COPD / asthma mild intermittent exacerbation with acute bronchitis component. Patient tried home steroids p.o. and and bronchodilator did not help. res panel negative ct neg for pulm emboli Tachycardia due to nebulizers Started on nebs, steroids, added ceftriaxone for bronchitis,added ivf tsh low but free t4 normal. Active smoker: Nicotine patch. Strongly advised to abstain from smoking and advised to hold off on marijuana might cause respiratory symptoms also. DVT prophylaxis: SubQ Lovenox. Quality Stroke Does the patient have a stroke diagnosis?: No VTE Prior VTE?: No VTE Risk Level:: Medical - moderate - high VTE Device Contraindication: Patient Refused VTE Drug Contraindication: N/A - Med Ordered
[2024-06-01] MEDS: 0.9 % Sodium Chloride 1,000 ML 100 ML IVCONT (20:17)
[2024-06-01] MEDS: Enoxaparin Sodium 40 MG/0.4 ML SYRINGE SUBCUT (20:18)
[2024-06-01] MEDS: Flu Vacc TS2024-25(6mos up)/PF 0.5 ML SYRINGE IM (22:28)
[2024-06-02] MEDS: guaiFENesin 200 MG/10 ML 10 ML LIQUID PO ×2 (01:55→05:39)
[2024-06-02 03:39] VITALS: BP 138/72; PULSE 86; RESP 18; TEMP 36.2; O2SAT 94
[2024-06-02] MEDS: 0.9 % Sodium Chloride 1,000 ML 100 ML IVCONT (05:43)
[2024-06-02 07:19] VITALS: BP 156/79; PULSE 73; RESP 18; TEMP 36.5; O2SAT 96
[2024-06-02] MEDS: levalbuterol HCL 1.25 MG/3 ML VIAL.NEB INHALE (08:10)
[2024-06-02 08:12] VITALS: PULSE 77; RESP 16; O2SAT 98
[2024-06-02] MEDS: Fluticasone/Vilanterol 200/25 BLST.W.DEV 1 PUFF INHALE (08:15)
[2024-06-02] MEDS: Tiotropium Bromide 2.5 mcg 1 PUFF/2.5 MCG MIST.INHAL 2 PUFF INHALE (08:15)
[2024-06-02] MEDS: Loratadine 10 MG TABLET PO (08:50)
[2024-06-02] MEDS: methylPREDNISolone Sod Succ 40 MG/ML VIAL IVPUSH (08:51)
[2024-06-02] MEDS: Nicotine 21 MG PATCH.TD24 TRANSDERMA (08:56)
--- NOTE | 2024-06-02 09:16 | PM.DS ---
DS: Providers Provider Date of Service: 06/02/24 Date of admission: 05/31/24 17:25 Date of discharge: 06/02/24 Primary care physician: Unknown Physician Attending physician on discharge: Jasmina Segovia Discharging clinician: Jasmina Segovia DS: Diagnosis Discharge Diagnosis (1) Asthma with exacerbation: Status: Acute (2) Acute bronchitis: Status: Acute DS: Summary Hospital Course Hospital Course: HPI:63 y/o M With pmhx asthma COPD, active smoker, also uses marijuana presents with coughing up white phlegm white yellowish phlegm, shortness of breath, and wheezing, he says he is having flu-like symptoms from at least 1-2 weeks' duration ,he did not check but he fell to URI like symptoms. In addition he says few of the people at his workplace has flu-like symptoms. He was in the ED 2 weeks back: Given prednisone and albuterol that time, he was using at home and did not help so decided to come to the hospital. In ED patient was given nebs, steroids, magnesium-is shortness of breath somewhat improving but getting more shortness of breath with exertion as well as become tachypneic/tachycardic: CTA negative for pulmonary embolism but possible bronchitis component. Patient denies any fever or chills or nausea or vomiting or abdominal pain or diarrhea or chest pain. Lab imaging reviewed: CBC and BMP seems fine. Chest x-ray negative, CTA-no pulmonary embolism, possible bronchitis. EKG:Sinus rhythm with Premature supraventricular complexes, ventricular rate 93/min. Hospital course: Acute COPD / asthma mild intermittent exacerbation with acute bronchitis component. Patient tried home steroids p.o. and and bronchodilator did not help,res panel negative ,cta neg for pulm emboli. Tachycardia due to nebulizers seems improved. switched to po steriods and po ceftin upon discharge. tsh low but free t4 normal-tsh low but free t4 normal -please recheck tsh and free t4 outpatient and further management as per pcp. Active smoker: Nicotine patch. Strongly advised to abstain from smoking and advised to hold off on marijuana might cause respiratory symptoms also. plan: prednisone 40 mg daily for 4 days ceftin 500 mg po bid for 7 days. tsh low but free t4 normal -please recheck tsh and free t4 outpatient and further management as per pcp. Above management discussed with the patient detail length he understand and in agreement with the above plan, time spent 40 minute. Time Attestation Total time managing care of this patient today: 40 mintues. Discharge Coordination Time (in mins): 40 min Quality: Safe Use of Opioids Does Pt have an Active Cancer Diagnosis on the Problem List?: No Quality: Stroke Does the patient have a stroke diagnosis?: No Physical Exam Vital Signs: Vital Signs: Last Vital Signs Temp 97.7 F 06/02/24 07:19 Pulse 77 06/02/24 08:12 Resp 16 06/02/24 08:12 BP 156/79 H 06/02/24 07:19 Pulse Ox 96 06/02/24 07:19 O2 Del Method Room Air 06/02/24 07:19 BMI result Body Mass Index 19.2 Appearance: Alert.? Oriented X3. cvs: rrr, [id number] , no murmur res: air enrty fair , no rales or wheezing abd: no rebound or guarding ,nt, bs present. ext pulses present , no cyanosis. neuro: axo3 , nonfocal. DS: Data Data Completed and Pending Labs on day of discharge: Laboratory Results - last 24 hr 06/01/24 06/01/24 07:13 11:26 TSH 0.12 L Free T4 1.22 Respiratory Panel Linda See Note Adenovirus (Rapid PCR) Not Detected B.pert (TEM-PCR) Not Detected B.parapertussis DNA PCR Not Detected C. pneumoniae DNA (PCR) Not Detected Coronavirus OC43 (PCR) Not Detected Coronavirus HKU1 (PCR) Not Detected Coronavirus 229E (PCR) Not Detected Coronavirus NL63 (PCR) Not Detected Human Metapneumovir PCR Not Detected Influenza A (RT-PCR) Not Detected Influenza B (RT-PCR) Not Detected M. pneumoniae (PCR) Not Detected Parainfluenza 1 (PCR) Not Detected Parainfluenza 2 (PCR) Not Detected Parainfluenza 3 (PCR) Not Detected Parainfluenza 4 (PCR) Not Detected RSV (PCR) Not Detected Entero/Rhino (PCR) Not Detected SARS-CoV-2 RNA (RT-PCR) Not Detected Preliminary micro results at discharge 05/31/24 15:13 Blood Culture - Preliminary Blood - Venous No growth after 24 hours. 05/31/24 15:13 Blood Culture - Preliminary Blood - Venous No growth after 24 hours. Imaging Chest x-ray: My impression: cta:No pulmonary embolism.Moderate bronchial wall thickening with secretions in the airways may indicate bronchitis. Discharge Plan Discharge Anticipated Discharge Date/Time: 06/02/24 09:08 Patient Disposition: Home, Self-Care Discharge Diagnosis: copd execerebation Referrals: Physician,Unknown J [Primary Care Provider] - 1 Week Discharge Medications: New nicotine 21 mg/24 hr Patch 24 Hour 21 mg transdermal DAILY Qty: 7 0RF loratadine 10 mg Tablet 10 mg PO DAILY Qty: 10 0RF prednisone 20 mg Tablet 40 mg PO DAILY Qty: 8 0RF guaifenesin 100 mg/5 mL Liquid 100 mg PO Q4H Qty: 200 0RF cefuroxime axetil 500 mg Tablet 500 mg PO Q12H Qty: 13 0RF Continued albuterol sulfate 2.5 mg /3 mL (0.083 %) solution for nebulization 2.5 mg inhalation Q6H PRN (Reason: wheezing) budesonide-formoterol 160-4.5 mcg/actuation HFA aerosol inhaler 2 puff INHALATION BID Spiriva Respimat 2.5 mcg/actuation mist 2 puff inhalation DAILY albuterol sulfate 90 mcg/actuation aerosol powdr breath activated 2 inh inhalation Q6H PRN (Reason: shortness of breath or wheezing) Discharge Orders: Discharge Order (Routine); Ordered 06/02/24 Ordered By: Jasmina Segovia Diet: Advance to usual diet Activity on Discharge: As tolerated Stand Alone Forms: Patient Portal Discharge page Print Language: Belarusian Care Plan Goals: Acute COPD / asthma mild intermittent exacerbation with acute bronchitis component. Patient tried home steroids p.o. and and bronchodilator did not help,res panel negative ,cta neg for pulm emboli. Tachycardia due to nebulizers seems improved. switched to po steriods and po ceftin upon discharge. tsh low but free t4 normal. Active smoker: Nicotine patch. Strongly advised to abstain from smoking and advised to hold off on marijuana might cause respiratory symptoms also. plan: prednisone 40 mg daily for 4 days ceftin 500 mg po bid for 7 days. tsh low but free t4 normal -please recheck tsh and free t4 outpatient and further management as per pcp. Health Concerns: as above. Plan of Treatment: prednisone 40 mg daily for 4 days ceftin 500 mg po bid for 7 days. tsh low but free t4 normal -please recheck tsh and free t4 outpatient and further management as per pcp. Assessment: as above. Discharge Date/Time: 06/02/24 09:52
--- NOTE | 2024-06-02 09:32 | PC.NURSE ---
clarified with Dr. Segovia re pt already had scheduled IV solumedrol this am and New PO prednisone will start tomorrow at home.
[2024-06-02] MEDS: cefuroxime axetiL 500 MG TABLET PO (09:34)
[2024-06-02 10:11] VITALS: BP 178/88; PULSE 93; RESP 18; TEMP 37.6; O2SAT 96
--- NOTE | 2024-06-02 12:11 | MHC.CM.PN ---
Patient is discharged today to home self-care. He arranged for transportation home.
== END 2024-06-02 09:52 | disposition home or self-care (01) ==
LOC: HO.ED 09:49 → HO.EDOVER 18:45 → HO.S3 06-01 18:59
PROVIDERS: Physician Assistant; Admitting Provider Internal Medicine; Emergency Provider Emergency Medicine; Visit Provider Internal Medicine
DX: J44.0 Chronic obstructive pulmonary disease with (acute) lower respiratory infection (principal); J20.9 Acute bronchitis, unspecified; R05.9 Cough, unspecified; R06.02 Shortness of breath; J44.9 Chronic obstructive pulmonary disease, unspecified; F17.200 Nicotine dependence, unspecified, uncomplicated; F12.90 Cannabis use, unspecified, uncomplicated; Z79.899 Other long term (current) drug therapy; Z23 Encounter for immunization; Z03.818 Encounter for observation for suspected exposure to other biological agents ruled out
CPT/HCPCS: 0241U; 36415; 71046; 71275; 80053; 83605; 83880; 84439; 84443; 84484; 85025; 85610; 85730; 87040; 87633; 90471; 90656; 93005; 94640; 96361; 96365; 96366; 96372; 96375; 96376; 99221; 99285; J1650; J2919; J3475; Q9967

== ENCOUNTER → 2024-05-31 09:48 | Outpatient (BNV) | payer OTHER, SELFPAY | PROVIDERS: Emergency Provider Emergency Medicine; Visit Provider Internal Medicine | DX: J20.9 Acute bronchitis, unspecified (principal) | CPT/HCPCS: 99222 ==

== ENCOUNTER → 2024-05-31 10:02 | Outpatient (BNV) | payer OTHER, SELFPAY | PROVIDERS: Emergency Provider Emergency Medicine; Visit Provider Radiology Diagnostic Radiology | DX: R06.02 Shortness of breath (principal); R05.9 Cough, unspecified | CPT/HCPCS: 71046; 71275 ==

== ENCOUNTER → 2024-05-31 10:50 | Outpatient (BNV) | payer OTHER, SELFPAY | PROVIDERS: Admitting Provider Internal Medicine; Emergency Provider Emergency Medicine; Visit Provider Internal Medicine Cardiovascular Disease | DX: R06.02 Shortness of breath (principal); R94.31 Abnormal electrocardiogram [ECG] [EKG] | CPT/HCPCS: 93010 ==

== ENCOUNTER 2024-07-13 09:06 | Emergency (ER) | payer OTHER, SELFPAY ==
[2024-07-13] VITALS (8 sets, daily range): BP systolic 102–169; BP diastolic 70–97; PULSE 68–84; RESP 14–24; TEMP 36.4–37.7; O2SAT 91–100; BMI 19.9
--- NOTE | ~2024-07-13 | XR_ITS ---
EXAMINATION: XR CHEST CLINICAL INFORMATION: sob COMPARISON: May 31, 2024. TECHNIQUE: 2 views of the chest were obtained. FINDINGS: No consolidation, pleural effusion or pneumothorax. Hyperinflated lungs. Cardiomediastinal silhouette size is normal. Osseous structures are intact. Mild multilevel lower thoracic spondylosis. XR/XR chest 2V IMPRESSION: No acute airspace disease. Consider chronic interstitial lung disease. Electronically signed by: Sung Sumner MD 07/13/2024 10:08 AM EDT
--- NOTE | 2024-07-13 09:42 | ED.LOWEXIN ---
HPI - Extremity Injury (Lower) General Chief Complaint: Dyspnea Stated Complaint: SOB Time Seen by Provider: 07/13/24 10:15 Source: patient Mode of arrival: ambulatory Limitations: no limitations History of Present Illness ED Provider: SARY SOUSA HPI Narrative: 63 year old male with pmhx significant for asthma/ COPD presents to the ED today for evaluation of worsening shortness of breath x3 days. He states that his symptoms appeared to start after he received the covid and pneumococcal vaccines at his PCPs office last week. He has been using ventolin and nebulizer at home without relief. He does not require supplemental oxygen at baseline. Denies fever, chills, cough, sputum production, hemoptysis, chest pain, LE edema. No recent travel or long car rides. No known sick contacts. Related Data Home Medications ?Medication ?Instructions ?Recorded ?Confirmed albuterol sulfate 2.5 mg/3 mL 2.5 mg inhalation Q6H PRN wheezing 05/31/24 05/31/24 (0.083 %) solution for nebulization albuterol sulfate 90 mcg/actuation 2 inh inhalation Q6H PRN shortness 05/31/24 05/31/24 breath activated powder inhaler of breath or wheezing budesonide-formoterol HFA 160 2 puff inhalation BID 05/31/24 05/31/24 mcg-4.5 mcg/actuation aerosol inhaler tiotropium bromide 2.5 2 puff inhalation DAILY 05/31/24 05/31/24 mcg/actuation mist for inhalation (Spiriva Respimat) Previous Rx's ?Medication ?Instructions ?Recorded cefuroxime axetil 500 mg tablet 500 mg PO Q12H #13 tabs 06/02/24 guaifenesin 100 mg/5 mL oral liquid 100 mg (5 mL) PO Q4H #200 mL 06/02/24 loratadine 10 mg tablet 10 mg PO DAILY #10 tabs 06/02/24 nicotine 21 mg/24 hr daily 21 mg transdermal DAILY #7 ea 06/02/24 transdermal patch prednisone 20 mg tablet 40 mg (2 x 20 mg) PO DAILY #8 tabs 06/02/24 cefuroxime axetil 500 mg tablet 500 mg PO BID 7 days #14 tabs 07/13/24 prednisone 20 mg tablet 40 mg (2 x 20 mg) PO DAILY 5 days 07/13/24 #10 tabs Allergies Allergy/AdvReac Type Severity Reaction Status Date / Time No Known Allergies Allergy Verified 07/13/24 09:42 Review of Systems Review of Systems: Constitutional: No fever, chills, fatigue, night sweats, weight changes ENT/Mouth: No ear pain, hearing loss, nasal congestion, sinus pain, rhinorrhea, sore throat Eyes: No eye pain, swelling, redness, vision changes, discharge Cardio: No chest pain, palpitations, TORO, orthopnea, peripheral edema Pulm: No cough, sputum, wheezing, dyspnea, hemoptysis, +SOB GI: No nausea, vomiting, hematemesis, abdominal pain, diarrhea, constipation, hematochezia, melena : No irregular bleeding, dysuria, frequency, urgency, hesitancy, hematuria, flank pain, urinary flow changes, urinary incontinence or retention MSK: No back pain, neck pain, joint pain, myalgias Skin: No lesions, rashes Neuro: No weakness, numbness, paresthesias, LOC, dizziness, headache Psych: No anxiety/panic, depression, SI/HI, AH/VH All other systems reviewed and are negative. [facility] Past Medical History Attestation statement: The following information was validated with the patient. Source: old records reviewed and nursing notes reviewed Medical History COPD (chronic obstructive pulmonary disease) Asthma Social History Social History Unable to assess alcohol history related to: Unknown Alcohol intake: current Alcohol intake frequency: a few times a month Patient Tobacco Use Status: Current everyday Tobacco user Tobacco use type: Cigarette Cigarettes Per Day: 4 Substance Use Type: Marijuana Advance Directives: Yes Advance Directives Information Provided: Yes Advance Directives on File: No Do you have a plan to hurt others: No Plan service: No Physical Exam Vital Signs: Vital Signs: Last Vital Signs Temp 97.6 F 07/13/24 10:30 Pulse 68 07/13/24 14:35 Resp 16 07/13/24 14:35 BP 160/97 H 07/13/24 14:35 Pulse Ox 97 07/13/24 14:35 O2 Del Method Nasal Cannula 07/13/24 14:35 O2 Flow Rate 2 07/13/24 14:35 BMI result Body Mass Index 19.9 hypertensive, tachypneic, hypoxic General: Well appearing, in no acute distress. Skin: Warm, dry, intact. No rashes or lesions. Head: Normocephalic, atraumatic. EENT: Hearing is intact b/l. Conjunctiva clear. Sclera is anicteric. PERRLA. EOM intact. Moist mucous membranes.? Cardiac: Chest wall symmetric. RRR. No JVD or pitting edema. Lungs: +no respiratory distress, sitting comfortably on the exam bed. There is no tripoding or increased effort of breathing. Diffuse expiratory wheezes noted on auscultation with diminished breath sounds to left lower lung. no crackles. RRR. No JVD or pitting edema. Abdomen: Soft, non-tender, non-distended Ext: Upper and lower extremities atraumatic, without tenderness, deformity, swelling or erythema Neuro: AOx3. Normal speech. Ambulating with steady gait. Course Course Course Narrative: This is a Rapid Medical Exam performed in triage by Debbie Weiner PA-C. Full HPI, ROS and PE to be performed by primary ED provider. 63 yo M w/PMHx asthma/COPD presenting to the ED c/o worsening SOB x 3 days. Has been using Ventolin at home w/o relief. denies cough, CP, LE edema PE: satting 92% on RA, diffuse exp wheeze noted, diminished sounds to LLL Plan: EKG, labs, CXR, SARs Reevaluation(s) Reevaluation #1: 1319 -- CBC without leukocytosis or left shift. no anemia, h&h stable. chemistry showing hypokalemia to 3.0 - no ekg changes. no other acute electrolyte abnormality requiring intervention. no ofelia. normal liver function. troponin wnl at 3.7. given timing of symptoms to ED presentation, no need to repeat for delta. he tested negative for covid, flu, rsv. cxr does not demonstrate pneumonia. > Patient continues to be hypoxic after treatment with Ventolin, Solu-Medrol and magnesium. He dropped to 91% on room air while seated in room. On ambulatory O2, patient was noted to drop to around 87%. he was not visibly short of breath. given continued hypoxia, will add on ddimer to r/o PE although less likely. placed on 2L NC. > patient currently receiving po and iv potassium repletion 1455 -- ddimer undetectable. PE unlikely. Patient satting 97% on 2L NC. Given continued hypoxia in the setting of asthma/ COPD requiring supplemental O2, I discussed admission with patient. I stressed the importance of staying for continued IV steroid treatment and any other further work up that may be warranted. He is adamantly declining admission, stating that he feels well. he also tells me that he has a court appointment tomorrow regarding eviction from his home and states he cannot miss this. I explained to the patient that his oxygen levels are very low and that he is requiring supplemental O2 - something that he does not have at home. I discussed all risks of leaving the ED without further treatment and he is still choosing to leave AMA. he tells me he has a pulse ox at home and will be monitoring his oxygen levels. I told him that he is welcome to return to the ED for continued care at any time. he verbalizes understanding. he is alert and oriented x3, capable of making his own decision. throughout his ED stay he has not appeared to be in any respiratory distress. > I will be sending a course of prednisone to the pharmacy along with ceftin for copd coverage. pulmonology referral provided. > advised to f/u with PCP regarding hypokalemia > patient signing out AMA Medications Administered Discontinued Medications Generic Name Dose Route Start Last Admin Trade Name Freq PRN Reason Stop Dose Admin Albuterol Sulfate 2.5 mg/ 5 mg 07/13/24 11:45 07/13/24 11:48 Albuterol Sulfate 2.5 mg INHALE 07/13/24 11:46 5 mg ONCE ONE Administration Albuterol Sulfate 2.5 mg/ 0 mg 07/13/24 10:10 07/13/24 11:50 Albuterol/Ipratropium 3 ml INHALE 07/13/24 10:11 Not Given ONCE ONE Magnesium Sulfate 2 gm in 50 mls @ 150 mls/hr 07/13/24 10:30 07/13/24 11:43 Magnesium Sulfate/H2o IV 07/13/24 10:49 Infused ONCE ONE Infusion Potassium Chloride 10 meq in 100 mls @ 100 mls/hr 07/13/24 11:53 07/13/24 14:08 Potassium Chloride/H20 IV 07/13/24 12:52 Infused ONCE ONE Infusion Methylprednisolone Sodium Succinate 125 mg 07/13/24 10:30 07/13/24 11:23 Methylprednisolone Sod Succ 125 Mg/2 Ml Vial IVPUSH 07/13/24 10:31 125 mg ONCE ONE Administration Potassium Chloride 40 meq 07/13/24 11:53 07/13/24 12:45 Potassium Chloride Packet 20 Meq Packet PO 07/13/24 11:54 40 meq ONCE ONE Administration Medical Decision Making Medical Decision Making [facility] Narrative: 63 year old male with pmhx significant for asthma/ COPD presents to the ED today for evaluation of worsening shortness of breath x3 days. Patient is hypertensive to 144/89 and tachypneic to 24 on arrival. satting 92% on RA. he was immediately brought back to an ED bed from the triage area. He was in no respiratory distress, sitting comfortably on the exam bed. There is no tripoding or increased effort of breathing. Diffuse expiratory wheezes noted on auscultation with diminished breath sounds to left lower lung. no crackles. RRR. No JVD or pitting edema. Differential diagnosis includes anemia, electrolyte abnormality, asthma/COPD exacerbation, bronchitis, pneumonia. Low suspicion for ACS, arrhythmia, PE, pleural effusion, CHF. EKG, labs, cxr, viral swabs, and ED bronch protocol ordered from triage. Will add on solumedrol, mag sulfate. Will obtain ambulatory O2. Differential Diagnosis Differential Diagnoses: The differential diagnosis associated with the presentation includes as above. Admission/Observation Consideration of admission/observation: Escalation of care including admission/observation considered Discussed admission for hypoxia, patient declining and would like to leave AMA. Lab Data [facility] Lab Attestation statement: I reviewed the patient's lab results. as above. 07/13/24 11:16 07/13/24 11:16 Labs: Lab Results 07/13/24 07/13/24 07/13/24 Range/Units 11:16 11:38 13:25 WBC 6.9 (4.8-10.8) X10*3/uL RBC 4.68 (4.60-5.80) X10*6/uL Hgb 14.2 (14.0-18.0) g/dl Hct 41.6 L (42.0-52.0) % MCV 88.9 (80.0-98.0) fL MCH 30.3 (27.0-33.0) pg MCHC 34.1 (31.0-36.0) g/dl RDW 13.1 (11.0-16.0) % Plt Count 215 (160-400) X10*3/uL MPV 9.8 (9.4-12.4) fL Immature Gran % (Auto) 0.4 (0.0-0.4) % Neut % (Auto) 49.9 (45-73) % Lymph % (Auto) 22.2 (20-40) % [place] % (Auto) 7.7 (2-11) % Eos % (Auto) 18.8 H (0-4) % Baso % (Auto) 1.0 (0-2) % Lymph # (Auto) 1.5 (1.2-4.9) X10*3/uL [place] # (Auto) 0.5 (0.1-1.2) X10*3/uL Eos # (Auto) 1.3 H (0.0-0.4) X10*3/uL Baso # (Auto) 0.1 (0.0-0.2) X10*3/uL Abs Immat Gran (auto) 0.03 (0.00-0.03) X10*3/uL Absolute Neuts (auto) 3.4 (2.0-8.3) x10*3/uL Absolute Nucleated RBC 0.000 (0.0-0.012) X10*3/uL Nucleated RBC % (auto) 0.0 (0.0-0.2) /100WBC D-Dimer High Sensitivty < 150 NG/ML Sodium 144 (135-145) mmol/L Potassium 3.0 L D (3.3-5.1) mmol/L Chloride 107 (96-108) mmol/L Carbon Dioxide 28 (22-29) mmol/L Anion Gap 12 (12-20) BUN 18 H (9-16) mg/dL Creatinine 0.78 (0.5-1.4) mg/dL Estim Creat Clear Calc 82.6 Estimated GFR > 60 Random Glucose 104 (60-115) mg/dL Calcium 8.6 (8.4-10.2) mg/dL Magnesium 1.9 (1.6-2.6) mg/dL Total Bilirubin 0.4 (0.0-1.0) mg/dL Direct Bilirubin 0.1 (0.0-0.5) mg/dL AST 31 (5-37) U/L ALT 36 (0-40) U/L Alkaline Phosphatase 73 (39-117) U/L Troponin I High Sens 3.7 (<3.5-35.0) ng/L Total Protein 6.4 L (6.5-8.0) g/dL Albumin 3.9 (3.5-5.0) g/dL Influenza Type A (PCR) NEGATIVE (Negative) Influenza Type B (PCR) NEGATIVE (Negative) RSV RNA Qual (PCR) NEGATIVE (Negative) SARS-CoV-2 RNA (RT-PCR) NEGATIVE (Negative) Independent Interpretation I performed an independent interpretation of an: EKG and Plain X-Ray Interpretation: CXR without focal infiltrate or consolidation EKG showing sinus rhythm at a rate of 89 beats per minute with PACs, incomplete right bundle-branch block evident on prior EKGs. No acute ischemic changes or ST elevations Radiology Impression Discussion of test interpretation with radiology: I have reviewed the radiologist's reading. Radiologist Impression: Procedure(s): XR chest 2V Accession Number(s): [id number] cc: Physician,Unknown ; Debbie Weiner~ EXAMINATION: XR CHEST CLINICAL INFORMATION: sob COMPARISON: May 31, 2024. TECHNIQUE: 2 views of the chest were obtained. FINDINGS: No consolidation, pleural effusion or pneumothorax. Hyperinflated lungs. Cardiomediastinal silhouette size is normal. Osseous structures are intact. Mild multilevel lower thoracic spondylosis. XR/XR chest 2V IMPRESSION: No acute airspace disease. Consider chronic interstitial lung disease. Electronically signed by: Sung Sumner MD 07/13/2024 10:08 AM EDT External Record Review External record reviewed: Inpatient record Prescription Management I considered prescription management with: Antibiotic (ceftin) and Other (prednisone) Chronic Conditions Patient?s care impacted by: Other (asthma/ copd) Social Determinants Patient?s care significantly limited by Social Determinants of Health including: Other Social Determinant of Health Critical Care Time Critical Care Time Critical Care Time: Yes Total Critical Care Time: 31 Attestation: Critical care time in the amount of 31 minutes has been provided to the patient in terms of direct patient care, frequent reevaluation on IV magnesium, review and interpretation of medical data and results, and management of potentially life-threatening conditions. This is all outside of any medical procedures. Discharge Plan Discharge Clinical Impression: Acute exacerbation of COPD with asthma, Hypoxia, Hypokalemia Patient Disposition: Left Against Medical Advice Instructions: Asthma (ED), Potassium Content of Foods List (ED), Hypokalemia (ED), Hypoxia (ED) Additional Instructions: Your blood work today shows low levels of potassium. You received supplementation in the ED today. Please follow up with your PCP for repeat blood work in 1-2 weeks to ensure these levels are stable. You tested negative for COVID, flu, RSV. Your xray does not demonstrate pneumonia. You received a breathing treatment, steroids, and magnesium for your shortness of breath however your oxygen levels are still low. We discussed admission for further treatment/ work up however you are declining at this time. We discussed the risks of you leaving the ED against medical advice which include but are not limited to; worsening shortness of breath, disability, decreased quality of life, . You are welcome to return to the ED at any point. I am sending a course of steroids (prednisone) to your pharmacy for you to take over the next 5 days. I am also sending an antibiotic (ceftin) to cover for potential exacerbation of SOB. Please use your home pulse oximeter to monitor your oxygen saturation if it goes below 94% you should return to the emergency department for further evaluation. I have provided you with a referral to a jet inspector. Please call them to establish care. They will not call you. Return with any new or worsening symptoms. In the case of an emergency call 911. Prescriptions: New prednisone 20 mg tablet 40 mg PO DAILY 5 Days Qty: 10 0RF cefuroxime axetil 500 mg tablet 500 mg PO BID 7 Days Qty: 14 0RF No Action albuterol sulfate 2.5 mg /3 mL (0.083 %) solution for nebulization 2.5 mg inhalation Q6H PRN (Reason: wheezing) budesonide-formoterol 160-4.5 mcg/actuation HFA aerosol inhaler 2 puff INHALATION BID Spiriva Respimat 2.5 mcg/actuation mist 2 puff inhalation DAILY albuterol sulfate 90 mcg/actuation aerosol powdr breath activated 2 inh inhalation Q6H PRN (Reason: shortness of breath or wheezing) nicotine 21 mg/24 hr Patch 24 Hour 21 mg transdermal DAILY Qty: 7 0RF loratadine 10 mg Tablet 10 mg PO DAILY Qty: 10 0RF prednisone 20 mg Tablet 40 mg PO DAILY Qty: 8 0RF guaifenesin 100 mg/5 mL Liquid 100 mg PO Q4H Qty: 200 0RF cefuroxime axetil 500 mg Tablet 500 mg PO Q12H Qty: 13 0RF Referrals: [facility] [Provider Group] - 3 days (asthma/ copd) Stand Alone Forms: Against Medical Advice Print Language: Latvian
--- NOTE | 2024-07-13 09:44 | ECG_ITS ---
Test Reason : sob Blood Pressure : */* mmHG Vent. Rate : 89 BPM Atrial Rate : 89 BPM P-R Int : 148 ms QRS Dur : 100 ms QT Int : 382 ms P-R-T Axes : 68 63 72 degrees QTcB Int : 464 ms Sinus rhythm with Premature atrial complexes Incomplete right bundle branch block Borderline ECG When compared with ECG of 31-May-2024 11:26, No significant change was found Referred By: Debbie Weiner Electronically Signed By: ARLENE SANDHU MD
[2024-07-13 11:20] LABS: MANUAL DIFF FLAG NO
[2024-07-13] MEDS: methylPREDNISolone Sod Succ 125 MG/2 ML VIAL IVPUSH (11:23)
[2024-07-13] MEDS: Magnesium Sulfate/H2O 2 GM/50 ML PIGGYBACK IV (11:23)
[2024-07-13 11:25] LABS: Basophils Absolute Auto 0.1 X10*3/uL (0.0-0.2); Eosinophils Absolute Auto 1.3 X10*3/uL (0.0-0.4); Eosinophils Percent Auto 18.8 % (0-4); Hematocrit 41.6 % (42.0-52.0); Hemoglobin 14.2 g/dl (14.0-18.0); Imm Gran Abs Auto 0.03 X10*3/uL (0.00-0.03); Imm Gran Pct Auto 0.4 % (0.0-0.4); Lymphocytes Absolute Auto 1.5 X10*3/uL (1.2-4.9); Lymphocytes Percent Auto 22.2 % (20-40); Mean Corpuscular HGB Conc 34.1 g/dl (31.0-36.0); Mean Corpuscular Hemoglobin 30.3 pg (27.0-33.0); Mean Corpuscular Volume 88.9 fL (80.0-98.0); Mean Platelet Volume 9.8 fL (9.4-12.4); Monocytes Absolute Auto 0.5 X10*3/uL (0.1-1.2); Monocytes Percent Auto 7.7 % (2-11); Neutrophils Absolute Auto 3.4 x10*3/uL (2.0-8.3); Neutrophils Percent Auto 49.9 % (45-73); Platelet Count 215 X10*3/uL (160-400); Red Blood Count 4.68 X10*6/uL (4.60-5.80); Red Cell Distribution Width 13.1 % (11.0-16.0); White Blood Count 6.9 X10*3/uL (4.8-10.8)
[2024-07-13 11:41] LABS: Troponin-I High Sensitivity 3.7 ng/L (<3.5-35.0)
[2024-07-13] MEDS: Albuterol Sulfate 2.5 MG, Albuterol Sulfate (0.083%) 2.5 MG 5 MG INHALE (11:48)
[2024-07-13 11:50] LABS: Alanine Aminotransferase 36 U/L (0-40); Albumin Level 3.9 g/dL (3.5-5.0); Alkaline Phosphatase 73 U/L (39-117); Anion Gap 12 (12-20); Aspartate Amino Transferase 31 U/L (5-37); Bilirubin Direct 0.1 mg/dL (0.0-0.5); Bilirubin Total 0.4 mg/dL (0.0-1.0); Blood Urea Nitrogen 18 mg/dL (9-16); Calcium 8.6 mg/dL (8.4-10.2); Carbon Dioxide 28 mmol/L (22-29); Chloride 107 mmol/L (96-108); Creatinine Clr Calc Pharmacy 82.6; Estimated Glomerular Filt Rate > 60; Glucose Random 104 mg/dL (60-115); Magnesium 1.9 mg/dL (1.6-2.6); Sodium 144 mmol/L (135-145); Total Protein 6.4 g/dL (6.5-8.0)
[2024-07-13 12:23] LABS: Influenza A PCR NEGATIVE (Negative); Influenza B PCR NEGATIVE (Negative); Resp Syncy Virus RNA Qual PCR NEGATIVE (Negative); SARS COV2 PCR INHOUSE NEGATIVE (Negative)
[2024-07-13] MEDS: Potassium Chloride Packet 20 MEQ PACKET 40 MEQ PO (12:45)
--- NOTE | 2024-07-13 12:46 | PC.NURSE ---
No IV pump available in ED. Contacted nursing supervisor powdered metal for available IV pump in order to infuse Potassium 10mEq via IV.
[2024-07-13] MEDS: Potassium Chloride/H20 10 MEQ/100 ML PIGGYBACK 100 MEQ IV (13:08)
[2024-07-13 13:53] LABS: D Dimer High Sensitivity < 150 NG/ML
== END 2024-07-13 15:10 | disposition left against medical advice (07) ==
PROVIDERS: Physician Assistant; Physician Assistant Medical; Emergency Provider Emergency Medicine Emergency Medical Services
DX: J44.1 Chronic obstructive pulmonary disease with (acute) exacerbation (principal); R06.02 Shortness of breath; R09.02 Hypoxemia; E87.6 Hypokalemia; I45.10 Unspecified right bundle-branch block; F17.210 Nicotine dependence, cigarettes, uncomplicated; Z03.818 Encounter for observation for suspected exposure to other biological agents ruled out; Z79.899 Other long term (current) drug therapy
CPT/HCPCS: 0241U; 36415; 71046; 80048; 80076; 83735; 84484; 85025; 85379; 93005; 94640; 96365; 96367; 96375; 99284; J2919; J3475; J3480

== ENCOUNTER → 2024-07-13 09:44 | Outpatient (BNV) | payer OTHER, SELFPAY | PROVIDERS: Emergency Provider Emergency Medicine Emergency Medical Services; Visit Provider Radiology Diagnostic Radiology | DX: R06.02 Shortness of breath (principal) | CPT/HCPCS: 71046 ==

== ENCOUNTER → 2024-07-13 09:44 | Outpatient (BNV) | payer OTHER, SELFPAY | PROVIDERS: Emergency Provider Emergency Medicine Emergency Medical Services; Visit Provider Internal Medicine Cardiovascular Disease | DX: R06.02 Shortness of breath (principal); I45.19 Other right bundle-branch block; R94.31 Abnormal electrocardiogram [ECG] [EKG] | CPT/HCPCS: 93010 ==

== ENCOUNTER 2024-08-19 20:44 | Emergency (ER) | payer OTHER, SELFPAY ==
--- NOTE | ~2024-08-19 | XR_ITS ---
CLINICAL HISTORY: sob 2 view chest x-ray. Comparison: CR/SR - XR CHEST 2V - 07/13/24 10:[address]/SR - CT ANGIO CHEST PE PROTOCOL - 05/31/24 14:21 EST CR - XR CHEST 2V - 05/31/24 10:38 EST Findings: Normal lung volumes. Lungs are clear. No pneumothorax or pleural effusion. Heart size normal. No passive venous congestion. No midline shift or tracheal deviation. No acute fracture. Impression: 1. No acute cardiopulmonary disease. This document has been electronically signed by: John Paul Magaña MD on 08/19/2024 21:53:37
[2024-08-19 20:46] VITALS: BP 162/93; PULSE 88; RESP 20; TEMP 36.9; O2SAT 92; BMI 20.1
--- NOTE | 2024-08-19 20:47 | ECG_ITS ---
Test Reason : SOB Blood Pressure : */* mmHG Vent. Rate : 89 BPM Atrial Rate : 89 BPM P-R Int : 148 ms QRS Dur : 100 ms QT Int : 372 ms P-R-T Axes : 70 57 67 degrees QTcB Int : 452 ms Normal sinus rhythm Incomplete right bundle branch block Borderline ECG When compared with ECG of 13-Jul-2024 10:12, Premature atrial complexes are no longer Present Referred By: Aretha Dumas Electronically Signed By: Toby Marin
--- NOTE | 2024-08-19 20:48 | ED.GENADULT ---
HPI - General Adult General Chief complaint: Asthma Stated complaint: difficulty breathing Time Seen by Provider: 08/19/24 21:08 Source: patient Mode of arrival: ambulatory Limitations: no limitations History of Present Illness ED Provider: Dr. Letty Adkins HPI narrative: Patient comes to the emergency room complaining of an asthma exacerbation that has been present for about 3 days. Patient complaining of intermittent wheezing. Patient has been using his inhaler more than usual. Denies fever chills. Related Data Home Medications ?Medication ?Instructions ?Recorded ?Confirmed albuterol sulfate 2.5 mg/3 mL 2.5 mg inhalation Q6H PRN wheezing 05/31/24 05/31/24 (0.083 %) solution for nebulization albuterol sulfate 90 mcg/actuation 2 inh inhalation Q6H PRN shortness 05/31/24 05/31/24 breath activated powder inhaler of breath or wheezing budesonide-formoterol HFA 160 2 puff inhalation BID 05/31/24 05/31/24 mcg-4.5 mcg/actuation aerosol inhaler tiotropium bromide 2.5 2 puff inhalation DAILY 05/31/24 05/31/24 mcg/actuation mist for inhalation (Spiriva Respimat) Previous Rx's ?Medication ?Instructions ?Recorded cefuroxime axetil 500 mg tablet 500 mg PO Q12H #13 tabs 06/02/24 guaifenesin 100 mg/5 mL oral liquid 100 mg (5 mL) PO Q4H #200 mL 06/02/24 loratadine 10 mg tablet 10 mg PO DAILY #10 tabs 06/02/24 nicotine 21 mg/24 hr daily 21 mg transdermal DAILY #7 ea 06/02/24 transdermal patch prednisone 20 mg tablet 40 mg (2 x 20 mg) PO DAILY #8 tabs 06/02/24 cefuroxime axetil 500 mg tablet 500 mg PO BID 7 days #14 tabs 07/13/24 prednisone 20 mg tablet 40 mg (2 x 20 mg) PO DAILY 5 days 07/13/24 #10 tabs albuterol sulfate 90 mcg/actuation 2 puff inhalation Q4-6H PRN 08/19/24 aerosol inhaler shortness of breath or wheezing #8.5 grams prednisone 50 mg tablet 50 mg PO DAILY #4 tabs 08/19/24 Allergies Allergy/AdvReac Type Severity Reaction Status Date / Time No Known Allergies Allergy Verified 08/19/24 20:48 Review of Systems Review of Systems: Constitutional : No Weight loss, No Fever, No Chills, No Night Sweats, No Fatigue, No Malaise ENT/Mouth : No Hearing loss, No Ear Pain, No Nasal Congestion, No Sinus Pain, No Hoarseness, No sore throat, No Rhinorrhea, No Swallowing Difficulty Eyes: No Eye Pain, No Swelling, No Redness, No Foreign Body, No Discharge, No Vision Changes Cardiovascular : No Chest Pain, No SOB, No Dyspnea on Exertion, No Orthopnea, No Edema, No Palpitations Respiratory : Complaining of cough, wheezing, shortness of breath Gastrointestinal : No Nausea, No Vomiting, No Diarrhea, No Constipation, No abdominal Pain, No Hematochezia, No Melena Genitourinary : no irregular bleeding, No Dysuria, No Urinary Frequency, No Hematuria, No Urinary Incontinence, No Urgency, No Flank Pain, No Urinary Flow Changes, No Hesitancy Musculoskeletal : No joint pain, No Myalgias, No Joint Swelling Skin : No Skin Lesions, No rash Neuro : No Weakness, No Numbness, No Paresthesias, No Loss of Consciousness, No Dizziness, No Headache Psych : No Anxiety/Panic, No Depression, No SI/HI/AH/VH, No Social Issues, Heme/Lymph: No Bruising, No Bleeding,No Lymphadenopathy Endocrine : No Polyuria, No Polydipsia, No Temperature Intolerance [facility] Past Medical History Medical History COPD (chronic obstructive pulmonary disease) Asthma Social History Social History Unable to assess alcohol history related to: Unknown Alcohol intake: current Alcohol intake frequency: a few times a month Patient Tobacco Use Status: Current everyday Tobacco user Tobacco use type: Cigarette Cigarettes Per Day: 4 Smoked in Last 30 Days: Yes Use of substances other than those prescribed or required for medical reasons: No Substance Use Type: Marijuana Advance Directives: No Advance Directives Information Provided: Yes Do you have a plan to hurt others: No Plan service: No Physical Exam ED Vital Signs: Vital Signs - 24 hr 08/19/24 20:46 08/19/24 21:51 08/19/24 22:13 Temperature 98.5 F 97.6 F Pulse Rate 88 84 77 Respiratory Rate 20 16 18 Blood Pressure 162/93 H 166/84 H Pulse Oximetry 92 94 Oxygen Delivery Method Room Air Room Air BMI result Body Mass Index 20.1 Const Other: Appearance: Alert. Oriented X3. No acute distress. Eyes: Pupils equal, round and reactive to light. ENT: Pharynx normal. Neck: Normal inspection. Neck supple. No lymph nodes noted. No crepitus CVS: Normal heart rate and rhythm. Pulses normal. Normal S1 and S2 Respiratory: Wheezing bilaterally, good air movement Abdomen: Soft and nontender. No rigidity. No distention. Skin: Skin warm and dry. Normal skin color. Normal skin turgor. Extremities: No lower extremity edema. No Lacerations. No Rash Neuro: Oriented X 3. No motor deficit. No sensory deficit. Moving all extremities. No slurred speech. CN 2 through 12 grossly intact Psych: calm, cooperative, normal affect Course Course Course Narrative: This is a Rapid Medical Examination (RME) performed by Vernon Dumas PA-C in triage. Full HPI, ROS, assessment and treatment plan per primary provider in the Main ED. Hx: 63 yo male hx COPD/asthma here for eval of sob. using inhaler at home w/o relief. PE/vitals: +expiratory wheezes. satting 92% on RA. no tripoding, speaking in complete sentences Plan: labs, ekg, viral swabs, cxr Medications Administered Discontinued Medications Generic Name Dose Route Start Last Admin Trade Name Freq PRN Reason Stop Dose Admin Albuterol Sulfate 2.5 mg/ 0 mg 08/19/24 21:42 08/19/24 21:49 Albuterol/Ipratropium 3 ml INHALE 08/19/24 21:43 5 dose ONCE ONE Administration Magnesium Sulfate/Dextrose 1 gm in 100 mls @ 100 mls/hr 08/19/24 21:27 08/19/24 21:52 Magnesium Sulfate/D5w IV 08/19/24 22:26 100 mls/hr ONCE ONE Administration Methylprednisolone Sodium Succinate 125 mg 08/19/24 21:27 08/19/24 21:58 Methylprednisolone Sod Succ 125 Mg/2 Ml Vial IVPUSH 08/19/24 21:28 125 mg ONCE ONE Administration Medical Decision Making Medical Decision Making [facility] Narrative: Patient receiving nebulization treatments per bronch protocol, Solu-Medrol, magnesium My interpretation of labs: No significant abnormality patient's hematology or chemistry, troponin negative My interpretation of EKG: Normal sinus rhythm, heart rate 89, no ST segment depression or elevation, no T-wave inversion, QTC 452 Serology negative for influenza COVID RSV Chest x-ray negative for infiltrate Ambulation without oxygen desaturation, 92%. Patient feels well, no shortness of breath Differential Diagnosis Differential Diagnoses: The differential diagnosis associated with the presentation includes (Asthma, COVID, influenza, chronic lung disease) Admission/Observation Consideration of admission/observation: Escalation of care including admission/observation considered (Given patient's symptoms and past medical history, observation was considered) Lab Data MDM Lab Attestation statement: I reviewed the patient's lab results. 08/19/24 21:00 08/19/24 21:00 Labs: Lab Results 08/19/24 Range/Units 21:00 WBC 7.0 (4.8-10.8) X10*3/uL RBC 4.71 (4.60-5.80) X10*6/uL Hgb 14.4 (14.0-18.0) g/dl Hct 42.0 (42.0-52.0) % MCV 89.2 (80.0-98.0) fL MCH 30.6 (27.0-33.0) pg MCHC 34.3 (31.0-36.0) g/dl RDW 12.9 (11.0-16.0) % Plt Count 208 (160-400) X10*3/uL MPV 9.7 (9.4-12.4) fL Immature Gran % (Auto) 0.3 (0.0-0.4) % Neut % (Auto) 56.7 (45-73) % Lymph % (Auto) 18.6 L (20-40) % Lewis % (Auto) 6.3 (2-11) % Eos % (Auto) 17.1 H (0-4) % Baso % (Auto) 1.0 (0-2) % Lymph # (Auto) 1.3 (1.2-4.9) X10*3/uL Lewis # (Auto) 0.4 (0.1-1.2) X10*3/uL Eos # (Auto) 1.2 H (0.0-0.4) X10*3/uL Baso # (Auto) 0.1 (0.0-0.2) X10*3/uL Abs Immat Gran (auto) 0.02 (0.00-0.03) X10*3/uL Absolute Neuts (auto) 3.9 (2.0-8.3) x10*3/uL Absolute Nucleated RBC 0.000 (0.0-0.012) X10*3/uL Nucleated RBC % (auto) 0.0 (0.0-0.2) /100WBC Sodium 141 (135-145) mmol/L Potassium 3.3 (3.3-5.1) mmol/L Chloride 106 (96-108) mmol/L Carbon Dioxide 28 (22-29) mmol/L Anion Gap 10 L (12-20) BUN 10 (9-16) mg/dL Creatinine 0.78 (0.5-1.4) mg/dL Estim Creat Clear Calc 83.4 Estimated GFR > 60 Random Glucose 97 (60-115) mg/dL Calcium 9.3 D (8.4-10.2) mg/dL Magnesium 2.1 (1.6-2.6) mg/dL Total Bilirubin 0.5 (0.0-1.0) mg/dL AST 33 (5-37) U/L ALT 28 (0-40) U/L Alkaline Phosphatase 75 (39-117) U/L Troponin I High Sens 3.3 (<3.5-35.0) ng/L Total Protein 6.6 (6.5-8.0) g/dL Albumin 4.1 (3.5-5.0) g/dL Influenza Type A (PCR) NEGATIVE (Negative) Influenza Type B (PCR) NEGATIVE (Negative) RSV RNA Qual (PCR) NEGATIVE (Negative) SARS-CoV-2 RNA (RT-PCR) NEGATIVE (Negative) Independent Interpretation I performed an independent interpretation of an: EKG and Plain X-Ray Radiology Impression Discussion of test interpretation with radiology: I have reviewed the radiologist's reading. Radiologist Impression: Normal lung volumes. Lungs are clear. No pneumothorax or pleural effusion. Heart size normal. No passive venous congestion. No midline shift or tracheal deviation. No acute fracture Critical Care Time Critical Care Time Critical Care Time: Yes Total Critical Care Time: 35 Attestation: I have personally provided critical care time. Time includes review of lab data, radiology results, discussion with consultants, and monitoring for potential decompensation. Intervention performed as documented. Discharge Plan Discharge Clinical Impression: URI, acute, Asthma Patient Disposition: Home, Self-Care Instructions: Asthma (ED), Upper Respiratory Infection (ED) Additional Instructions: Please follow-up with your primary care physician tomorrow. If you have any worsening or new symptoms, please return to the emergency room or call 911 Prescriptions: New prednisone 50 mg tablet 50 mg PO DAILY Qty: 4 0RF albuterol sulfate 90 mcg/actuation HFA aerosol inhaler 2 puff inhalation Q4-6H PRN (Reason: shortness of breath or wheezing) Qty: 8.5 0RF No Action prednisone 20 mg tablet 40 mg PO DAILY 5 Days Qty: 10 0RF cefuroxime axetil 500 mg tablet 500 mg PO BID 7 Days Qty: 14 0RF albuterol sulfate 2.5 mg /3 mL (0.083 %) solution for nebulization 2.5 mg inhalation Q6H PRN (Reason: wheezing) budesonide-formoterol 160-4.5 mcg/actuation HFA aerosol inhaler 2 puff INHALATION BID Spiriva Respimat 2.5 mcg/actuation mist 2 puff inhalation DAILY albuterol sulfate 90 mcg/actuation aerosol powdr breath activated 2 inh inhalation Q6H PRN (Reason: shortness of breath or wheezing) nicotine 21 mg/24 hr Patch 24 Hour 21 mg transdermal DAILY Qty: 7 0RF loratadine 10 mg Tablet 10 mg PO DAILY Qty: 10 0RF prednisone 20 mg Tablet 40 mg PO DAILY Qty: 8 0RF guaifenesin 100 mg/5 mL Liquid 100 mg PO Q4H Qty: 200 0RF cefuroxime axetil 500 mg Tablet 500 mg PO Q12H Qty: 13 0RF Print Language: Persian
[2024-08-19 21:07] LABS: MANUAL DIFF FLAG NO
[2024-08-19 21:08] LABS: Basophils Absolute Auto 0.1 X10*3/uL (0.0-0.2); Eosinophils Absolute Auto 1.2 X10*3/uL (0.0-0.4); Eosinophils Percent Auto 17.1 % (0-4); Hemoglobin 14.4 g/dl (14.0-18.0); Imm Gran Abs Auto 0.02 X10*3/uL (0.00-0.03); Imm Gran Pct Auto 0.3 % (0.0-0.4); Lymphocytes Absolute Auto 1.3 X10*3/uL (1.2-4.9); Lymphocytes Percent Auto 18.6 % (20-40); Mean Corpuscular HGB Conc 34.3 g/dl (31.0-36.0); Mean Corpuscular Hemoglobin 30.6 pg (27.0-33.0); Mean Corpuscular Volume 89.2 fL (80.0-98.0); Mean Platelet Volume 9.7 fL (9.4-12.4); Monocytes Absolute Auto 0.4 X10*3/uL (0.1-1.2); Monocytes Percent Auto 6.3 % (2-11); Neutrophils Absolute Auto 3.9 x10*3/uL (2.0-8.3); Neutrophils Percent Auto 56.7 % (45-73); Platelet Count 208 X10*3/uL (160-400); Red Blood Count 4.71 X10*6/uL (4.60-5.80); Red Cell Distribution Width 12.9 % (11.0-16.0)
[2024-08-19 21:20] LABS: Alanine Aminotransferase 28 U/L (0-40); Albumin Level 4.1 g/dL (3.5-5.0); Alkaline Phosphatase 75 U/L (39-117); Anion Gap 10 (12-20); Aspartate Amino Transferase 33 U/L (5-37); Bilirubin Total 0.5 mg/dL (0.0-1.0); Blood Urea Nitrogen 10 mg/dL (9-16); Calcium 9.3 mg/dL (8.4-10.2); Carbon Dioxide 28 mmol/L (22-29); Chloride 106 mmol/L (96-108); Creatinine Clr Calc Pharmacy 83.4; Estimated Glomerular Filt Rate > 60; Glucose Random 97 mg/dL (60-115); Magnesium 2.1 mg/dL (1.6-2.6); Potassium 3.3 mmol/L (3.3-5.1); Sodium 141 mmol/L (135-145); Total Protein 6.6 g/dL (6.5-8.0)
--- OUTSIDE RECORDS SUMMARY | 2024-08-19 21:23 | XMS_ITS | Clinical Summary ---
Author Organization [facility] Address [address] [place] [address] Care Team Providers Care Wafer Cutter Name Role Phone Daniel Maria Primary Care Provider Source Comments PLEASE NOTE, if this patient is a minor, it may be UNLAWFUL to discuss sensitive information that is contained in these records (such as FAMILY PLANNING, MENTAL HEALTH or SUBSTANCE ABUSE) with the minor patient's parent or other person without the patient's specific authorization.[facility] Allergies No known active allergies Medications carvediloL (COREG) 3.125 mg tablet TAKE 1 TABLET BY MOUTH two (2) times a day WITH MEALS 180 Tablet 11/05/19 24 Active albuterol (PROVENTIL) 2.5 mg /3 mL (0.083 %) nebulizer solutionIndicat ions:COPD with chronic bronchitis (HCC-CMS) Take 3 mL by nebulization every 4 (four) hours as needed for wheezing 500 mL 1 07/03/19 25 Active tiotropium bromide (SPIRIVA RESPIMAT) 2.5 mcg/actuation mistIndications :COPD with chronic bronchitis (HCC-CMS) INHALE 2 PUFFS BY MOUTH INTO THE lungs ONCE DAILY 4 g 11 07/03/19 25 Active albuterol HFA (VENTOLIN HFA) 90 mcg/actuation inhalerIndicati ons:COPD with chronic bronchitis (HCC-CMS) INHALE TWO PUFFS BY MOUTH EVERY 6 HOURS NEEDED FOR SHORTNESS OF BREATH OR FOR WHEEZING 18 g 1 07/10/19 25 Active amLODIPine (NORVASC) 5 mg tabletIndicatio ns:Primary hypertension Take 1 Tablet by mouth once daily 60 Tablet 1 07/10/19 25 Active aspirin [address] tabletIndicatio ns:Personal history of DE (myocardial infarction) Take 1 Tablet by mouth once daily 60 Tablet 1 07/10/19 25 Active atorvastatin (LIPITOR) 40 mg tabletIndicatio ns:Personal history of DE (myocardial infarction) Take 1 Tablet by mouth once daily 30 Tablet 2 07/10/19 25 Active budesonide-form oteroL (SYMBICORT) 160-4.5 mcg/actuation inhalerIndicati ons:COPD with chronic bronchitis (HCC-CMS) INHALE 2 PUFFS BY MOUTH INTO THE LUNGS two (2) times a day FOR copd. rinse mouth and throat after use 10.2 g 5 07/10/19 25 Active montelukast (SINGULAIR) 10 mg tabletIndicatio ns:COPD with chronic bronchitis (HCC-CMS) Take 1 Tablet by mouth every morning 30 Tablet 8 07/10/19 25 Active predniSONE (DELTASONE) 5 mg tabletIndicatio ns:Asthma-COPD overlap syndrome (HCC-CMS) Take 1 Tablet by mouth once daily 30 Tablet 1 08/04/19 25 Active predniSONE (DELTASONE) 5 mg tabletIndicatio ns:Asthma-COPD overlap syndrome (HCC-CMS) Take 1 Tablet by mouth once daily 30 Tablet 1 05/12/19 25 2024 Discontinued Active Problems Problem Noted Date Diagnosed Date Personal history of DE (myocardial infarction) 0 10/05/2022 Overview (10/05/2022): August 2022 Acute pain of right lower extremity 12/29/2018 Overview (12/29/2018): 12/16/18 - Patient c/o right anterior pickard pain x 3 days + radiation to right toes and pain worsening with ambulation. 12/23/18 - CR Tibia Fibula RT 2 Views, [facility], Diagnostic Imaging Dept, Findings: No fracture or dislocation. Mild soft tissue swelling along anterior aspect of distal leg. Knee and ankle joints intact. IMPRESSION: No evidence of fracture. COPD exacerbation (HCC-CMS) 10/30/2018 Abnormal PFT 07/26/2018 Overview (07/26/2018): 07/10/18 [facility] IMPRESSION: + `Moderate degree of airflow obstruction with some partial improvement after bronchodilators. SIRS (systemic inflammatory response syndrome) ( [facility]) 06/23/2018 Marijuana smoker 04/12/2018 Tobacco dependence 04/12/2018 Hallux valgus (acquired), left foot 04/12/2018 COPD with chronic bronchitis ([facility]) 8 Overview (08/04/2020): 07/30/2020 - Patient followed by [facility] pul[facility]ology. Alpha 1 antitrypsin NEGATIVE. 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 12/29/18 - DR Chest Routine 2 Views, 12/18/18, [facility] Diagnostic Imaging Dept, IMPRESSION: Pulmonary hyperinflation which can be seen in setting of chronic obstructive pulmonary disease. Annual low dose lung CT recommended. [facility] Comparison: 03/24/18, 06/23/16 Hyperinflated lungs, consistent with chronic obstructive airways disease. No significant change. [facility] 07/10/18 The patient had a spirometry. Forced vital capacity is 3.09 liters, which is 68% of predicted and the FEV1% is 53%. There is improvement after the bronchodilators in this study and the flow rates are markedly decreased as well. Maximal voluntary ventilation is 82 liters and the lung volumes, RV/TLC ratio is 41% and the residual volume is normal. The diffusing capacity is normal. IMPRESSION: Moderate degree of airflow obstruction with some partial improvement after bronchodilators. Positive PPD 06/19/2016 Retinal defect Encounters Date Type Department Care Team Description 08/11/2024 10:00 AM EDT / Visits [facility] [address] [place] [phone] Derek Garcia LCSW Current moderate episode of major depressive disorder, unspecified whether recurrent ([facility]) (Primary Dx) 07/09/2024 1:40 PM EDT Office Visit [facility] [address] [place] [phone] Daniel Maria PA Routine general medical examination at a health care facility (Primary Dx); Housing instability; Abnormal PFT; COPD exacerbation ([facility]); Personal history of DE (myocardial infarction); COPD with chronic bronchitis ([facility]); Primary hypertension; Acute depression from Last 3 Months Immunizations Immunization Administration Dates Next Due Flu, Preservative Free 04/11/2018 INFLUENZA, SEASONAL, INJECTABLE 01/10/2016 Moderna COVID-19 (Spikevax), Mrna, Lnp-s, Pf, 50 Mcg/0.5 Ml, 12yr+ 07/09/2024 Moderna COVID-19 Vaccine, re d cap blue label, 12+ Primary Series 09/12/2020,08/15/2020 PFIZER COVID VACCINE, PURPLE CAP, 12+ 12/20/2021 PNEUMOCOCCAL CONJUGATE PCV 13 10/16/2021 PNEUMOCOCCAL CONJUGATE PCV 20 (Prevnar) 07/10/19 25 PNEUMOCOCCAL POLYSACCHARIDE PPV23 04/11/2018 PPD 06/05/2016 TDAP 06/05/2016 ZOSTER VACCINE, RECOMBINANT (SHINGRIX) 2,12/20/2020 Family History Medical History Relation Name Comments Heart Problems Maternal Uncle Heart Problems Mother Relation Name Status Comments Maternal Uncle Mother Social History Tobacco Use Types Packs/Day Years Used Date Smoking Tobacco: Every Day Cigarettes Smokeless Tobacco: Never Tobacco Cessation:Ready to Q uit: Not Asked; Counseling Given: Not Answered Alcohol Use Standard Drinks/Week Comments Yes 0 (1 standard drink = 0.6 oz pur e alcohol) every orther day 1-2 Social Connections Answer Date Recorded Connectedness 1 05/15/2023 Financial Resource Strain Answer Date R ecorded Financial Resource Strain 2 2023 Stress Answer Date Recorded Stress 1 11/20/2023 Physical Activity Answer Date Recorded Physical Activity 0 12/08/2019 Food Insecurity Answer Date Recorded Food 2 11/20/2023 Transportation Needs Answer Date Record ed Transportation 1 11/20/2023 Housing Stability Answer Date Recorded Housing 2 11/20/2023 Safety and Environment Answer Date Fidel rded Safety 1 05/15/2023 Utilities Answer Date Recorded Utilities 2 11/20/2023 Employment Answer Date Recorded Stress 0 12/08/2019 Sex and Gender Information Value Date Recorded Sex Assigned at Male 12/02/2017 6:32 AM PDT Legal Sex Male 7:31 AM PDT Gender Identity Male 12/02/2017 6:32 AM PDT Sexual Orientation Straight 12/02/2017 6: 32 AM PDT Occupation Industry Job Start Date Job End Date Not on file Not on file Not on file Not on file Last Filed Vital Signs Vital Sign Reading Time Taken Comments Blood Pressure 150/86 07/09/2024 1:49 PM EDT Pulse 81 07/09/2024 1:49 PM EDT Temperature 36.7 ??C (98 ??F) 07/09/2024 1:49 PM EDT Respiratory Rate 17 07/09/2024 1:49 PM EDT Oxygen Saturation 98% 07/09/2024 1:49 PM EDT Inhaled Oxygen Concentration - - Weight 61.2 kg (135 lb) 07/09/2024 1:49 PM EDT Height 175.3 cm (5' 9 ) 07/09/2024 1:49 PM EDT Body Mass Index 19.94 07/09/2024 1:49 PM EDT Plan of Treatment Upcoming Encounters Date Type Department Care Team (Late st Contact Info) Description 08/28/2024 10:00 AM EDT / Visits [address] [phone] Derek Garcia, [facility] [address] [place] [address] Health Maintenance Due Date Last Done Comments Anxiety Screening [address] Colonography 11/17/2004 Colonoscopy 11/17/2004 Fecal DNA 11/17/2004 Flexible Sigmoidoscopy 11/17/2004 Colorectal Cancer Screening 12/20/2021 FIT/gFOBT 12/20/2021 12/20/2020, 12/21, 01/10/2016 Tobacco Cessation Counseling (#1) 12/20/2023 12/20/2022, 10/03/2022, 06/19/2022, Additional history exists Lipid Screening 12/21/2023 12/20/2022, 09/21, 07/28/2020, Additional history exists Depression Monitoring 10/09/2024 07/09/2024 , 04/30/2022, 08/24/2021, Additional history exists [id number] ( - [facility] ) 01/09/2025 07/09/2024, 12/20/2021, 04/20/2021, Additional history exists Diabetes Screening 04/30/2025 04/30/2024, 0 04/23/2024, 12/20/2022, Additional history exists Annual Preventive Care Visit 07/09/2025, 12/20/2022, 12/20/2021, Additional history exists Imm-DTaP/Tdap/Td (2 - Td or Tdap) 06/05/2026 017 Imm-Influenza Discontinued 04/11/2018, 01/10/2016 Hepatitis C Screening Completed 05/21/2018 HIV Screening Completed 10/16/2021 Imm-Zoster, Recombinant Completed 10/16/2021, 12/20 Alcohol and Drug Screen Completed 07/10/19, 06/19/2022, 08/24/2021, Additional history exists Imm-Pneumococcal Completed 07/09/2024, , 04/11/2018 Goals Goal Patient Goal Type Associated Problems Recent Progress Patient-Stated? Author Decrease ED Utilization. Priority #2 General Yes Juan F Kamn[place]i, [place] Note: Will attend all appointments with providers and other specialists. Will follow medical regimen and discuss any concern or problem with Underwater Trapper(CM). Will call CM to triage any medical problem or exacerbation of COPD, if possible, before calling 911 or go to the ED. Decrease COPD Exacerbation: Priority # 1 General Yes Juan F Kaminski, [place] Note: Will decrease cigarette smoking by smoking not more than 1/4 pack a day within the next 6 months. Take medications as prescribed for the next 6 months. Underwater Trapper will provide education and encouragement on smoking cessation and medical regimen for the next 6 months. Procedures Procedure Name Priority Date/Time Associated Diagnosis Comments IMAGING SCANNED DOCUMENT 07/23/2024 3:00 AM EDT REFERRAL SCANNED DOCUMENT 07/09/2024 3:00 AM EDT COMPREHENSIVE METABOLIC PANEL Routine 12/20/2022 10:16 AM EDT Routine general medical examination at a health care facility LIPID PANEL Routine 12/20/2022 10:16 AM EDT Routine general medical examination at a health care facility HIV 1/2 AG & AB W/RFLX (4TH GEN) Routine 10/16/2021 10:16 AM EDT Primary hypertension FECAL GLOBIN BY IMMUNOCHEMISTRY (FIT) Routine 12/20/2020 9:51 AM EDT Routine adult health maintenance HEPATITIS A,B,C PANEL Routine 05/21/2018 9:44 AM EST Elevated liver enzymes from Last 3 Months or Most Recently Relevant to Health Maintenance Results * IMAGING SCANNED DOCUMENT (07/23/2024 3:00 AM EDT) 07/23/2024 3:00 AM EDT Daniel Metzgervais PA SCAN IMAGING Final Result * REFERRAL SCANNED DOCUMENT (07/09/2024 3:00 AM EDT) 07/09/2024 3:00 AM EDT Daniel Candace PA SCAN REFERRAL Final Result * LIPID PANEL (12/20/2022 10:16 AM EDT) CHOLESTEROL, TOTAL 119 <200 mg/dL [facility] HDL CHOLESTEROL 69 > OR = 40 mg/dL [facility] TRIGLYCERIDES 64 <150 mg/dL [facility] LDL-CHOLESTEROL 36 99 mg/dL (calc) [facility] Comment: Reference range: <100 Desirable range <100 mg/dL for primary prevention; ?? <70 mg/dL for patients with CHD or diabetic patients with > or = 2 CHD risk factors. LDL-C is now calculated using the Ramu calculation, which is a validated novel method providing better accuracy than the Friedewald equation in the estimation of LDL-C. Guillermo JOSEPH et al. RHIANNA. 2013;310(19): 7364-2429 (http://education.Cicer[employer]s.Nanoleaf/faq/DCC485) CHOL/HDLC RATIO 1.7 <5.0 (calc) [facility] NON-HDL CHOLESTEROL 50 <130 mg/dL (calc) [facility] Comment: For patients with diabetes plus 1 major ASCVD risk factor, treating to a non-HDL-C goal of <100 mg/dL (LDL-C of <70 mg/dL) is considered a therapeutic option. Blood Blood / Unknown 12/20/2022 1 0:16 AM EDT 12/20/2022 10:16 AM EDT us Ruth Mayuri WIRE WHEELER-C LAB - BLOOD DRAW Final Re sult [facility] [address] [address], [facility] [address] [place] [address] * (ABNORMAL) COMPREHENSIVE METABOLIC PANEL (12/20/2022 10:16 AM EDT) GLUCOSE 82 65 - 99 mg/dL [facility] Comment: ?Fasting reference interval UREA NITROGEN (BUN) 12 7 - 25 mg/dL [facility] CREATININE (blood) 0.80 0.70 - 1.35 mg/dL [facility] EGFR 99 > OR = 60 mL/min/1. 73m2 [facility] BUN/CREATININE RATIO SEE NOTE: [facility] Comment: ?? Not Reported: BUN and Creatinine are within ?? reference range. ? SODIUM 141 135 - 146 mmol/L [facility] POTASSIUM 3.3(L) 3.5 - 5.3 mmol/L [facility] [place] [employer] CHLORIDE 105 98 - 110 mmol/L [facility] CARBON DIOXIDE 27 20 - 32 mmol/L [facility] [place] [employer] CALCIUM 9.1 8.6 - 10.3 mg/dL [facility] PROTEIN, TOTAL 5.9(L) 6.1 - 8.1 g/dL [employer] [facility] ALBUMIN 3.9 3.6 - 5.1 g/dL [facility] GLOBULIN 2.0 1.9 - 3.7 g/dL (calc) [employer] [facility] ALBUMIN/GLOBULI N RATIO 2.0 1.0 - 2.5 (calc) [facility] BILIRUBIN, TOTAL 0.4 0.2 - 1.2 mg/dL [facility] ALKALINE PHOSPHATASE 106 35 - 144 U/L [facility] AST 20 10 - 35 U/L [facility] ALT 23 9 - 46 U/L [facility] Blood Blood / Unknown 12/20/2022 1 0:16 AM EDT 12/20/2022 10:16 AM EDT Ruth Messina W[facility] LAB - BLOOD DRAW Edited R esult - Final Performing Organization Address City/[facility] Co de Phone Number [facility] [address] [address], [facility] [address] [address] * HIV 1/2 AG & AB W/RFLX (4TH GEN) (10/16/2021 10:16 AM EDT) [facility] HIV AG/AB, 4TH GEN NON-REAC TIVE NON-REAC TIVE [facility] Comment: HIV-1 antigen and HIV-1/HIV-2 antibodies were not detected. There is no laboratory evidence of HIV infection. PLEASE NOTE: This information has been disclosed to you from records whose confidentiality may be protected by state law. ??If your state requires such protection, then the state law prohibits you from making any further disclosure of the information without the specific written consent of the person to whom it pertains, or as otherwise permitted by law. A general authorization for the release of medical or other information is NOT sufficient for this purpose. ?? For additional information please refer to http://education.[employer].Nanoleaf/faq/IOX841 (This link is being provided for informational/ educational purposes only.) The performance of this assay has not been clinically validated in patients less than 2 years old. Blood Blood / Unknown 10/16/2021 1 0:16 AM EDT 10/16/2021 10:16 AM EDT Daniel MARTINEZ LAB - BLOOD DRAW Final Result Performing Organization Address City/[facility]/ZIP Co de Phone Number [facility] [address] [address], [facility] [address] [address] * FECAL GLOBIN BY IMMUNOCHEMISTRY (FIT) (12/20/2020 9:51 AM EDT) FECAL GLOBIN BY IMMUNOCHEMISTRY See Note [facility] Comment: ??FECAL GLOBIN BY IMMUNOCHEMISTRY ?Micro Number: ?[id number] ??Test Status: ? Final ??Specimen Source: ?? Insure (tm) fobt test card ??Specimen Quality: ??Adequate ??Fecal Globin: ?Not Detected Test results may be invalid as no date of ? collection was provided. Specimens are stable ? for 14 days. NO COLLECTION DATE RECEIVED. WE HAVE USED THE DATE THE SPECIMEN WAS RECEIVED BY THIS LABORATORY THE COLLECTION DATE. IF THIS IS INCORRECT, PLEASE CONTACT CLIENT SERVICES. PHONE NUMBER: Stool Stool specimen / Unknown 12/20/2020 9:51 AM EDT 12/23/2020 3:24 PM EDT Daniel MARTINEZ LAB - NO BLOOD DRAW Final Resu lt [facility] [address] [address], [facility] [address] [address] * (ABNORMAL) HEPATITIS A,B,C PANEL (05/21/2018 9:44 AM EST) Pathologist [facility] HEPATITIS B SURFACE ANTIBODY NEGATIVE NEGATIVE [facility] HEPATITIS B SURFACE ANTIGEN NEGATIVE NEGATIVE [facility] Comment: Over the counter supplements containing high doses of biotin may interfere with this assay. ??If interference is suspected, patients shoud be retested after refraining from biotin supplements for 72 hours. HEPATITIS C VIRUS DIAGNOSTIC NEGATIVE NEGATIVE [facility] HEPATITIS B CORE ANTIBODY NEGATIVE NEGATIVE [facility] HEPATITIS A ANTIBODY TOTAL POSITIVE(A) NEGATIVE [facility] Comment: Over the counter supplements containing high doses of biotin may interfere with this assay. ??If interference is suspected, patients shoud be retested after refraining from biotin supplements for 72 hours. Blood specimen (specimen) Blood / Unknown 05/21/2018 9:44 AM EST 05/21/2018 10:11 AM EST Narrative [facility] - 05/21/2018 12:53 PM EST [employer] [place] [address] Daycare Teacher - Odalis Torres MD PT ID [id number] ORD# [id number] Shena Marquez PA-C LAB - BLOOD DRAW Edited Result - Final [address] [address], from Last 3 Months or Most Recently Relevant to Health Maintenance Insurance [employer] Care Teams Wafer Cutter Relationship Specialty Start Date End Date Daniel Maria PA [address] [place] [address] PCP - General Internal Medicine 09/25/18
--- OUTSIDE RECORDS SUMMARY | 2024-08-19 21:23 | XMS_ITS | Continuity of Care Document ---
Author Organization [facility] Address [address] [place] [phone] Phone Care Team Providers Care Dining Room Attendant Cafeteria Name Role Phone Aivnash Serrato MD Unavailable Unavailable Procedures Procedure Date Intermediate Revisit SCODI--Retina Intermediate Revisit SCODI--Retina Fluorescein Angiography New Patient Comprehensive Stereo Fundus Photos OCT Advance Directives Directive Yes / No Effective Date File Name No Information Encounters Encounter Description Practice Location Reason(s) For Visit Diagnoses Date Provider Providers Copied on Encounter [facility] [address], [id number], tel:[phone] Nanda No Information 1 Ama Da Silva. [address] [place] [address], [address] [place] [address], . tel:[phone] [facility] [address], [id number], tel:[phone] [address] No Information 1 Ama Da Silva. [address] [place] [address], [id number], . tel:[phone] [facility] [address], [id number], tel:[phone] No Information 0 No Information Family History Family Member Type Diagnosis Age At Onset No Information Payers Payer name Insurance type Covered libertarian ID Nadia ward(s) [employer] CI [id number] Social History Type Description Quantity Date Captured [...]
--- OUTSIDE RECORDS SUMMARY | 2024-08-19 21:23 | XMS_ITS | Clinical Summary ---
Author Organization Patient Business [facility], [place] Address [address] [place] [address] Care Team Providers Care Transfer Pumper Name Role Phone Fabrice Gruber MD Primary Care Provider [phone] Allergies No known active allergies Medications albuterol HFA (PROAIR HFA ; PROVENTIL HFA ; VENTOLIN HFA) 90 mcg/actuation inhaler Inhale 2 puffs by mouth every 4 (four) hours if needed for wheezing. 1 each 07/24/19 25 025 Active albuterol HFA (PROAIR HFA ; PROVENTIL HFA ; VENTOLIN HFA) 90 mcg/actuation inhaler Inhale 2 puffs by mouth every 4 (four) hours if needed for wheezing. 1 each 04/23/19 25 025 Discontinued(Re order) predniSONE (DELTASONE) 5 mg tabletIndications :Severe persistent asthma, uncomplicated ([facility] V28) TAKE 1 TABLET BY MOUTH ONCE DAILY 30 tablet 3 05/06/19 25 025 Discontinued predniSONE (DELTASONE) 20 mg tablet Take 3 tablets (60 mg total) by mouth 1 (one) time each day for 5 days. See instructio ns. 10 tablet 07/24/19 25 025 Active Problems No known active problems Encounters Date Type Department Care Team Description 07/23/2024 8:15 AM EDT - 07/23/2024 11:10 AM EDT Emergency [facility] Emergency [address] [place] [address] Cauchon, Negro C, DO COPD exacerbation ([facility] V24, [facility] V28) (Primary Dx); Severe persistent asthma, uncomplicated ([facility] V28) Discharge Disposition: Home or Self Care from Last 3 Months Surgical History Surgery Date Site/Laterality Comments EYE SURGERY PROCEDURE: HISTORICAL EYE SURGERY; COMMENT: enucleation w/implant Medical History Medical History Date Comments Asthma 12/10/2018 DX:Asthma COPD (chronic obstructive pu lmonary disease) ([facility] V24, [facility] V28) 12/10/2018 DX:COPD (chronic o bstructive pulmonary disease) ([facility]) Marijuana use 12/10/2018 DX:Marijuana use Hallux valgus, acquired, left 12/10/2018 DX :Hallux valgus, acquired, left Positive PPD 12/10/2018 DX:Positive PPD; COMMENT: 07/2018 Unable to afford copay for LD CT scan HTN (hypertension) DX:HTN (hyper tension) Family History Medical History Relation Name Comments Other: Other, heart problems Mother Other: Other, heart problems Uncle maternal Relation Name Status Comments Mother Uncle maternal Alive Social History Tobacco Use Types Packs/Day Years Used Date Smoking Tobacco: Some Days Cigarettes Smokeless Tobacco: Never Alcohol Use Standard Drinks/Week Comments Yes 0 (1 standard drink = 0.6 oz pur e alcohol) Sex and Gender Information Value Date Recorded Sex Assigned at Not on file Legal Sex Male 12:09 PM EST Gender Identity Not on file Sexual Orientation Not on file Obstetrics History Last Filed Vital Signs Vital Sign Reading Time Taken Comments Blood Pressure 149/87 07/23/2024 10:29 AM EDT Pulse 96 07/23/2024 10:44 AM EDT Temperature 36.9 ??C (98.4 ??F) 07/23/2024 10:29 AM E DT Respiratory Rate 18 07/23/2024 10:44 AM EDT Oxygen Saturation 96% 07/23/2024 10:44 AM EDT Inhaled Oxygen Concentration - - Weight 61.2 kg (135 lb) 07/23/2024 8:07 AM EDT Height 167.6 cm (5' 6 ) 07/23/2024 8:07 AM EDT Body Mass Index 21.79 07/23/2024 8:07 AM EDT Plan of Treatment Health Maintenance Due Date Last Done Comments RSV Immunization Adult Patients (1 - Risk 60-74 years 1-dose series) 2019 Colorectal Cancer Screening: Colonoscopy 03/20/2022 HIV Screening 03/20/2022 Hepatitis C Screening 03/20/2022 Social Influencers of Health Screening 03/20/2022 Influenza Vaccine (Season Ended) 2024 04/11/2018, 01/10/2016 Hypertension/CHF/CAD Annual BMP Blood Test 04/30/2025 04/30/2024, 04/23/2024, 12/20/2022 Depression Screening 07/09/2025 07/09/2024 DTaP,Tdap,and Td Vaccines (2 - Td or Tdap) 06/05/2026 06/05/2016 Cholesterol Screening (Lipid Panel) 12/21/2027 12/20/2022, 12/20/2022, 10/16/2021, Additional history exists Zoster Vaccines Completed 10/16/2021, 12/20/2020 COVID-19 Vaccine Completed 07/09/2024, , 04/20/2021, Additional history exists Pneumococcal Vaccine: 50+ Years Completed 07/09/2024, 10/16/2021, 04/11/2018 Pneumococcal Vaccine: Pediatrics (0 to 5 Years) and At-Risk Patients (6 to 64 Years) Completed 07/09/2024, 10/16/2021, 04/11/2018 HIB Vaccines Aged Out No longer eligi ble based on patient's age to complete this topic HPV Vaccines Aged Out No longer eligi ble based on patient's age to complete this topic Hepatitis A Vaccines Aged Out No long er eligible based on patient's age to complete this topic Hepatitis B Vaccines Aged Out No long er eligible based on patient's age to complete this topic IPV Vaccines Aged Out No longer eligi ble based on patient's age to complete this topic MMR Vaccines Aged Out No longer eligi ble based on patient's age to complete this topic Meningococcal ACWY Vaccine Aged Out N o longer eligible based on patient's age to complete this topic Meningococcal B Vaccine Aged Out No l onger eligible based on patient's age to complete this topic RSV Immunization Patients Under 20 months Aged Out No longer eligible based on patient's age to complete this topic Varicella Vaccines Aged Out No longer eligible based on patient's age to complete this topic Procedures Procedure Name Priority Date/Time Associated Diagnosis Comments XR CHEST 2 VIEWS STAT 07/23/2024 8:23 AM EDT BASIC METABOLIC PANEL STAT 04/30/2024 11:21 AM EST from Last 3 Months or Most Recently Relevant to Health Maintenance Results * XR Chest 2 Views (07/23/2024 8:23 AM EDT) Anatomical Region Laterality Modality Body Radiographic Minnie ging 07/23/2024 8:52 AM EDT Impressions 07/23/2024 8:53 AM EDT FINDINGS/IMPRESSION: Hyperinflated lungs suggest chronic obstructive pulmonary disease. ??No pneumonia, pleural effusion, or pneumothorax. ??Cardiac silhouette is normal in size. ??Mild degenerative changes seen throughout the bones. -------- FINAL REPORT -------- Dictated By: JEFFERY FERNÁNDEZ Dictated Date: 07/23/2024 08:52 ET Assigned Physician: JEFFERY FERNÁNDEZ Reviewed and Electronically Signed By: JEFFERY FERNÁNDEZ Signed Date: 07/23/2024 08:53 ET Workstation ID: [id number] Transcribed By: Self Edit Transcribed Date: 07/23/2024 08:52 ET Narrative 07/23/2024 8:53 AM EDT XR CHEST 2 VIEWS INDICATION: ??Cough TECHNIQUE: XR CHEST 2 VIEWS COMPARISON: 04/30/2024 Procedure Note Jeffery Fernández MD - 07/23/2024 XR CHEST 2 VIEWS INDICATION: Cough TECHNIQUE: XR CHEST 2 VIEWS COMPARISON: 04/30/2024 IMPRESSION: FINDINGS/IMPRESSION: Hyperinflated lungs suggest chronic obstructivepulmonary disease. No pneumonia, pleural effusion, or pneumothorax.Cardiac silhouette is normal in size. Mild degenerative changes seenthroughout the bones. -------- FINAL REPORT -------- Dictated By: JEFFERY FERNÁNDEZ Dictated Date: 07/23/2024 08:52 ET Assigned Physician: JEFFERY FERNÁNDEZ Reviewed and Electronically Signed By: JEFFERY FERNÁNDEZ Signed Date: 07/23/2024 08:53 ET Workstation ID: [id number] Transcribed By: Self Edit Transcribed Date: 07/23/2024 08:52 ET us Negro Valles Timothyhebermaria luisa DO IMG XR PROCEDURES Final Res ult * (ABNORMAL) Basic metabolic panel (04/30/2024 11:21 AM EST) Sodium 136 133 - 145 mmol/L LAB CHEMISTRY METHOD 04/30/2024 12:34 PM [facility] Potassium 3.5 3.5 - 5.5 mmol/L LAB CHEMISTRY METHOD 04/30/2024 12:34 PM [facility] Comment:Hemolysis present Chloride 105 96 - 110 mmol/L LAB CHEMISTRY METHOD 04/30/2024 12:34 PM [facility] CO2 27 21 - 32 mmol/L LAB CHEMISTRY METHOD 04/30/2024 12:34 PM [facility] Anion Gap 4 3 - 11 LAB CHEMISTRY METHOD 04/30/2024 12:34 PM [facility] Glucose 114(H) 70 - 100 mg/dL LAB CHEMISTRY METHOD 04/30/2024 12:34 PM [facility] BUN 12 5 - 25 mg/dL LAB CHEMISTRY METHOD 04/30/2024 12:34 PM [facility] Creatinine 0.66(L) 0.70 - 1.30 mg/dL LAB CHEMISTRY METHOD 04/30/2024 12:34 PM [facility] eGFR 105 >=60 mL/min/1. 73m2 LAB CHEMISTRY METHOD 04/30/2024 12:34 PM [facility] Comment:Calculation based on the??Chronic Kidney Disease Epidemiology Collaboration (CKD-EPI) equation refit??without adjustment for race. BUN/Creatinine Ratio 18.2 LAB CHEMISTRY METHOD 04/30/2024 12:34 PM [facility] Calcium 8.7 8.5 - 10.5 mg/dL LAB CHEMISTRY METHOD 04/30/2024 12:34 PM EST [facility] Blood Venous blood specimen / Unknown Venipuncture / Unknown 04/30/2024 11:21 AM EST 04/30/2024 11:56 AM EST Lynda Dorado DO LAB BLOOD ORDERABLES Brigida l Result [facility] [address] [place] [address], from Last 3 Months or Most Recently Relevant to Health Maintenance Insurance [facility] [employer] Care Teams Transfer Pumper Relationship Specialty Start Date End Date Fabrice Gruber MD [address] [place] [address] PCP - General Internal Medicine 09/29/18
--- OUTSIDE RECORDS SUMMARY | 2024-08-19 21:23 | XMS_ITS ---
Author Organization [facility] Address [address] [place] [address] Care Team Providers Care Butcher'S Assistant Name Role Phone Daniel Maria Primary Care Provider [phone] Asthma Program Status:Enrolled (Active) Start date:01/18/2023 Enrollment date:01/18/2023 Case Team Name Relationship Phone Cruz Chavarria PharmD (Responsible Staff) [phone] Continued Care and Services Coordination
[2024-08-19 21:28] LABS: Troponin-I High Sensitivity 3.3 ng/L (<3.5-35.0)
[2024-08-19 21:43] LABS: Influenza A PCR NEGATIVE (Negative); Influenza B PCR NEGATIVE (Negative); Resp Syncy Virus RNA Qual PCR NEGATIVE (Negative); SARS COV2 PCR INHOUSE NEGATIVE (Negative)
[2024-08-19] MEDS: Albuterol Sulfate 2.5 MG, Albuterol/Iprat 2.5/0.5MG 3 ML 3 ML INHALE (21:49)
[2024-08-19 21:51] VITALS: PULSE 84; RESP 16; O2SAT 95
[2024-08-19] MEDS: Magnesium Sulfate/D5W 1 GM/100 ML PIGGYBACK IV (21:52)
[2024-08-19] MEDS: methylPREDNISolone Sod Succ 125 MG/2 ML VIAL IVPUSH (21:58)
[2024-08-19 22:13] VITALS: BP 166/84; PULSE 77; RESP 18; TEMP 36.4; O2SAT 94
--- NOTE | 2024-08-19 22:46 | MHC.EDTECH ---
PATIENT WAS AMBULATED FOR O2 TRIAL.PATIENTS O2 PRIOR WAS 94 AND HEART RATE 84 RESPIRATIONS 18.AFTER AMBULATION PATIENTS O2 WAS 91 HEART RATE 100 RESPIRATIONS 18
--- NOTE | 2024-08-19 22:48 | PC.NURSE ---
Pt. ambulted pt. and completed a walking oxygen saturation test and informed MD of results.
[2024-08-19 22:54] VITALS: BP 166/84; PULSE 77; RESP 18; TEMP 36.4; O2SAT 94
== END 2024-08-19 22:54 | disposition home or self-care (01) ==
PROVIDERS: Physician Assistant Medical; Emergency Provider Emergency Medicine; PCP Dentist General Practice
DX: J06.9 Acute upper respiratory infection, unspecified (principal); J45.909 Unspecified asthma, uncomplicated; Z03.818 Encounter for observation for suspected exposure to other biological agents ruled out
CPT/HCPCS: 0241U; 71046; 80053; 83735; 84484; 85025; 93005; 94640; 96365; 96375; 99284; 99285; J2919; J3475

== ENCOUNTER → 2024-08-19 20:47 | Outpatient (BNV) | payer OTHER, SELFPAY | PROVIDERS: Emergency Provider Emergency Medicine; PCP Dentist General Practice; Visit Provider Internal Medicine Cardiovascular Disease | DX: R06.02 Shortness of breath (principal); I45.19 Other right bundle-branch block; R94.31 Abnormal electrocardiogram [ECG] [EKG] | CPT/HCPCS: 93010 ==

== ENCOUNTER → 2024-08-19 20:47 | Outpatient (BNV) | payer OTHER, SELFPAY | PROVIDERS: Emergency Provider Emergency Medicine; PCP Dentist General Practice; Visit Provider Radiology Diagnostic Radiology | DX: R06.02 Shortness of breath (principal) | CPT/HCPCS: 71046 ==

== ENCOUNTER 2025-03-08 04:03 | Emergency (ER) | payer OTHER, SELFPAY ==
--- OUTSIDE RECORDS SUMMARY | 2010-08-25 02:45 | XMS_ITS | Continuity of Care Document ---
Author Organization [facility] Address [address] [place] [phone] Phone Care Team Providers Care Customer Support Analyst Name Role Phone Avinash Serrato MD Unavailable Unavailable Procedures Procedure Date Intermediate Revisit SCODI--Retina Intermediate Revisit SCODI--Retina Fluorescein Angiography New Patient Comprehensive Stereo Fundus Photos OCT Advance Directives Directive Yes / No Effective Date File Name No Information Encounters Encounter Description Practice Location Reason(s) For Visit Diagnoses Date Provider Providers Copied on Encounter [facility] [address], [id number], tel:[phone] [place] No Information 1 Ama Da Silva. [address] [place] [address], [address] [place] [address], . tel:[phone] [facility] [address], [id number], tel:[phone] [place] No Information 1 Ama Da Silva. [address] [place] [address], [id number], . tel:[phone] [facility] [address], [id number], tel:[phone] [place] No Information 0 No Information Family History Family Member Type Diagnosis Age At Onset No Information Payers Payer name Insurance type Covered alliance party ID Nadia ward(s) [employer] Medicare CI [id number] Social History Type Description Quantity Date Captured Comments Sex Male Smoking Status No Information Chief Complaint And Reason For Visit No Information Reason For Referral Reason For Referral No Information History Of Present Illness Encounter Date Complaint History Of Prese nt Illness No Information Functional Status Date Functional Assessmen t No Information Instructions Date Instruction Additional Infor mation No Information Assessments Type Assessment Date No Information Patient Care Teams Name Effective Dates (start - stop) Status Members No Information
--- OUTSIDE RECORDS SUMMARY | 2010-08-25 02:45 | XMS_ITS | Continuity of Care Document ---
Author Organization [facility] Address [address] [place] [phone] Phone Care Team Providers Care Meat Stock Clerk Name Role Phone Avinash Serrato MD Unavailable Unavailable Procedures Procedure Date Intermediate Revisit SCODI--Retina Intermediate Revisit SCODI--Retina Fluorescein Angiography New Patient Comprehensive Stereo Fundus Photos OCT Advance Directives Directive Yes / No Effective Date File Name No Information Encounters Encounter Description Practice Location Reason(s) For Visit Diagnoses Date Provider Providers Copied on Encounter [facility] [address], [id number], tel:[phone] [place] No Information 1 Ama Da Silva. [address] [place] [address], [address] [place] [address], . tel:[phone] [facility] [address], [id number], tel:[phone] [place] No Information 1 Ama Da Silva. [address] [place] [address], [id number], . tel:[phone] [facility] [address], [id number], tel:[phone] [place] No Information 0 No Information Family History Family Member Type Diagnosis Age At Onset No Information Payers Payer name Insurance type Covered democrat ID Nadia ward(s) [employer] Medicare CI [id number] Social History Type Description Quantity Date Captured [...]
--- OUTSIDE RECORDS SUMMARY | 2010-08-25 02:45 | XMS_ITS | Continuity of Care Document ---
Author Organization [facility] Address [address] [place] [phone] Phone Care Team Providers Care Senior Formulation Scientist Name Role Phone Avinash Serrato MD Unavailable Unavailable Procedures Procedure Date Intermediate Revisit SCODI--Retina Intermediate Revisit SCODI--Retina Fluorescein Angiography New Patient Comprehensive Stereo Fundus Photos OCT Advance Directives Directive Yes / No Effective Date File Name No Information Encounters Encounter Description Practice Location Reason(s) For Visit Diagnoses Date Provider Providers Copied on Encounter [facility] [address], [id number], tel:[phone] [place] No Information 1 Ama Da Silva. [address] [place] [address], [address] [place] [address], . tel:[phone] [facility] [address], [id number], tel:[phone] [place] No Information 1 Ama Da Silva. [address] [place] [address], [id number], . tel:[phone] [facility] [address], [id number], tel:[phone] [place] No Information 0 No Information Family History Family Member Type Diagnosis Age At Onset No Information Payers Payer name Insurance type Covered democrat ID Nadia ward(s) [employer] Medicare CI [id number] Social History Type Description Quantity Date Captured [...]
--- OUTSIDE RECORDS SUMMARY | 2010-08-25 02:45 | XMS_ITS | Continuity of Care Document ---
Author Organization [facility] Address [address] [place] [phone] Phone Care Team Providers Care Wiener Packer Name Role Phone Avinash Serrato MD Unavailable Unavailable Procedures Procedure Date Intermediate Revisit SCODI--Retina Intermediate Revisit SCODI--Retina Fluorescein Angiography New Patient Comprehensive Stereo Fundus Photos OCT Advance Directives Directive Yes / No Effective Date File Name No Information Encounters Encounter Description Practice Location Reason(s) For Visit Diagnoses Date Provider Providers Copied on Encounter [facility] [address], [id number], tel:[phone] [place] No Information 1 Ama Da Silva. [address] [place] [address], [address] [place] [address], . tel:[phone] [facility] [address], [id number], tel:[phone] [place] No Information 1 Ama Da Silva. [address] [place] [address], [id number], . tel:[phone] [facility] [address], [id number], tel:[phone] [place] No Information 0 No Information Family History Family Member Type Diagnosis Age At Onset No Information Payers Payer name Insurance type Covered alliance party ID Nadia ward(s) [employer] Medicare CI [id number] Social History Type Description Quantity Date Captured [...]
--- OUTSIDE RECORDS SUMMARY | 2010-08-25 02:45 | XMS_ITS | Continuity of Care Document ---
Author Organization [facility] Address [address] [place] [phone] Phone Care Team Providers Care Frankfurter Inspector Name Role Phone Avinash Serrato MD Unavailable Unavailable Procedures Procedure Date Intermediate Revisit SCODI--Retina Intermediate Revisit SCODI--Retina Fluorescein Angiography New Patient Comprehensive Stereo Fundus Photos OCT Advance Directives Directive Yes / No Effective Date File Name No Information Encounters Encounter Description Practice Location Reason(s) For Visit Diagnoses Date Provider Providers Copied on Encounter [facility] [address], [id number], tel:[phone] [place] No Information 1 Ama Da Silva. [address] [place] [address], [address] [place] [address], . tel:[phone] [facility] [address], [id number], tel:[phone] [place] No Information 1 Ama Da Silva. [address] [place] [address], [id number], . tel:[phone] [facility] [address], [id number], tel:[phone] [place] No Information 0 No Information Family History Family Member Type Diagnosis Age At Onset No Information Payers Payer name Insurance type Covered constitution party ID Nadia ward(s) [employer] Medicare CI [id number] Social History Type Description Quantity Date Captured [...]
--- OUTSIDE RECORDS SUMMARY | 2010-08-25 02:45 | XMS_ITS | Continuity of Care Document ---
Author Organization [facility] Address [address] [place] [phone] Phone Care Team Providers Care Bead Wire Insulator Name Role Phone Avinash Serrato MD Unavailable Unavailable Procedures Procedure Date Intermediate Revisit SCODI--Retina Intermediate Revisit SCODI--Retina Fluorescein Angiography New Patient Comprehensive Stereo Fundus Photos OCT Advance Directives Directive Yes / No Effective Date File Name No Information Encounters Encounter Description Practice Location Reason(s) For Visit Diagnoses Date Provider Providers Copied on Encounter [facility] [address], [id number], tel:[phone] [place] No Information 1 Ama Da Silva. [address] [place] [address], [address] [place] [address], . tel:[phone] [facility] [address], [id number], tel:[phone] [place] No Information 1 Ama Da Silva. [address] [place] [address], [id number], . tel:[phone] [facility] [address], [id number], tel:[phone] [place] No Information 0 No Information Family History Family Member Type Diagnosis Age At Onset No Information Payers Payer name Insurance type Covered democrat ID Nadia ward(s) [employer] Medicare CI [id number] Social History Type Description Quantity Date Captured [...]
--- OUTSIDE RECORDS SUMMARY | 2010-08-25 02:45 | XMS_ITS | Continuity of Care Document ---
Author Organization [facility] Address [address] [place] [phone] Phone Care Team Providers Care Bagger And Stock Handler Helper Name Role Phone Avinash Serrato MD Unavailable Unavailable Procedures Procedure Date Intermediate Revisit SCODI--Retina Intermediate Revisit SCODI--Retina Fluorescein Angiography New Patient Comprehensive Stereo Fundus Photos OCT Advance Directives Directive Yes / No Effective Date File Name No Information Encounters Encounter Description Practice Location Reason(s) For Visit Diagnoses Date Provider Providers Copied on Encounter [facility] [address], [id number], tel:[phone] [place] No Information 1 Ama Da Silva. [address] [place] [address], [address] [place] [address], . tel:[phone] [facility] [address], [id number], tel:[phone] [place] No Information 1 Ama Da Silva. [address] [place] [address], [id number], . tel:[phone] [facility] [address], [id number], tel:[phone] [place] No Information 0 No Information Family History Family Member Type Diagnosis Age At Onset No Information Payers Payer name Insurance type Covered democrat ID Nadia ward(s) [employer] Medicare CI [id number] Social History Type Description Quantity Date Captured [...]
--- NOTE | ~2025-03-08 | XR_ITS ---
CLINICAL HISTORY: sob 2 view chest x-ray Comparison: CR - XR CHEST 2V - 08/19/24 21:28 EDT Findings: The lungs are clear. Heart size is normal. No acute fracture. IMPRESSION: 1. No acute findings. This document has been electronically signed by: Richard Junior MD on 03/08/2025 05:52:06
[2025-03-08 04:15] VITALS: BP 149/82; PULSE 69; RESP 20; TEMP 36.7; O2SAT 94; BMI 19.8
[2025-03-08 04:27] LABS: MANUAL DIFF FLAG NO
[2025-03-08 04:28] LABS: Hematocrit 45.7 % (42.0-52.0); Hemoglobin 15.3 g/dl (14.0-18.0); Imm Gran Abs Auto 0.03 X10*3/uL (0.00-0.03); Imm Gran Pct Auto 0.4 % (0.0-0.4); Lymphocytes Absolute Auto 1.3 X10*3/uL (1.2-4.9); Mean Corpuscular HGB Conc 33.5 g/dl (31.0-36.0); Mean Corpuscular Hemoglobin 30.5 pg (27.0-33.0); Mean Corpuscular Volume 91.0 fL (80.0-98.0); NRBC Abs Auto 0.000 X10*3/uL (0.0-0.012); NRBC Pct Auto 0.0 /100WBC (0.0-0.2); Platelet Count 227 X10*3/uL (160-400); Red Blood Count 5.02 X10*6/uL (4.60-5.80); White Blood Count 7.0 X10*3/uL (4.8-10.8)
[2025-03-08 04:43] LABS: Alanine Aminotransferase 42 U/L (0-40); Albumin Level 4.4 g/dL (3.5-5.0); Alkaline Phosphatase 83 U/L (39-117); Anion Gap 15 (12-20); Aspartate Amino Transferase 27 U/L (5-37); Blood Urea Nitrogen 14 mg/dL (9-16); Calcium 9.3 mg/dL (8.4-10.2); Carbon Dioxide 23 mmol/L (22-29); Chloride 108 mmol/L (96-108); Creatinine Clr Calc Pharmacy 79.2; Estimated Glomerular Filt Rate > 60; Potassium 3.8 mmol/L (3.3-5.1); Sodium 142 mmol/L (135-145); Total Protein 6.8 g/dL (6.5-8.0)
--- NOTE | 2025-03-08 05:39 | ED.SOB ---
HPI - SOB/Dyspnea General Chief Complaint: Dyspnea Stated Complaint: sob Time Seen by Provider: 03/08/25 05:33 History of Present Illness ED Provider: Casey Quezada MD HPI Narrative: 64-year-old male previous smoker with history of diagnosed COPD feels few days of coughing with difficulty breathing he has been using nebulizer treatments at home some relief. He felt tonight like he was falling asleep and has shortness of breath wasworsening as he was falling asleep. Cough but no increased phlegm or fever. No hemoptysis Related Data Home Medications ?Medication ?Instructions ?Recorded ?Confirmed albuterol sulfate 2.5 mg/3 mL 2.5 mg inhalation Q6H PRN wheezing 05/31/24 05/31/24 (0.083 %) solution for nebulization albuterol sulfate 90 mcg/actuation 2 inh inhalation Q6H PRN shortness 05/31/24 05/31/24 breath activated powder inhaler of breath or wheezing budesonide-formoterol HFA 160 2 puff inhalation BID 05/31/24 05/31/24 mcg-4.5 mcg/actuation aerosol inhaler tiotropium bromide 2.5 2 puff inhalation DAILY 05/31/24 05/31/24 mcg/actuation mist for inhalation (Spiriva Respimat) Previous Rx's ?Medication ?Instructions ?Recorded cefuroxime axetil 500 mg tablet 500 mg PO Q12H #13 tabs 06/02/24 guaifenesin 100 mg/5 mL oral liquid 100 mg (5 mL) PO Q4H #200 mL 06/02/24 loratadine 10 mg tablet 10 mg PO DAILY #10 tabs 06/02/24 nicotine 21 mg/24 hr daily 21 mg transdermal DAILY #7 ea 06/02/24 transdermal patch prednisone 20 mg tablet 40 mg (2 x 20 mg) PO DAILY #8 tabs 06/02/24 cefuroxime axetil 500 mg tablet 500 mg PO BID 7 days #14 tabs 07/13/24 prednisone 20 mg tablet 40 mg (2 x 20 mg) PO DAILY 5 days 07/13/24 #10 tabs albuterol sulfate 90 mcg/actuation 2 puff inhalation Q4-6H PRN 08/19/24 aerosol inhaler shortness of breath or wheezing #8.5 grams prednisone 50 mg tablet 50 mg PO DAILY #4 tabs 08/19/24 prednisone 20 mg tablet 60 mg (3 x 20 mg) PO DAILY 2 days 03/08/25 #6 tabs Allergies Allergy/AdvReac Type Severity Reaction Status Date / Time No Known Allergies Allergy Verified 03/08/25 04:19 [facility] Past Medical History Medical History COPD (chronic obstructive pulmonary disease) Asthma Social History Social History Alcohol intake: never Patient Tobacco Use Status: Current everyday Tobacco user Tobacco use type: Cigarette Cigarettes Per Day: 4 Smoked in Last 30 Days: Yes Use of substances other than those prescribed or required for medical reasons: Yes Substance Use Type: Marijuana Substance Use Frequency: Occasionally Any prior treatment program specific to substance use: No Advance Directives: No Advance Directives Information Provided: No service: No Physical Exam Exam: Exam: EXAM: Gen: Alert, awake, well appearing, well hydrated. Head: Atraumatic Eyes: Anicteric, Normal conjunctiva. ENT: Moist mucosa, no pallor. Neck: Supple. Skin: No observable rash or bruising on exposed or examined skin Respiratory: Breathing comfortably, No distress. scant expiratory wheeze only in the posterior cunningham. No accessory muscle use or distress he is speaking full sentences breath sounds audible bilaterally Cardiovascular: Regular rate and rhythm. No murmurs or rub. Well perfused periphery, warm extremities. No edema. Abdominal: No focal tenderness. Soft, no objective distension. No palpable masses or obvious organomegaly. No guarding, no rebound tenderness or other peritoneal findings. : No flank tenderness. Neuro: Alert. Gross movement of all extremities intact. Psych: Calm. Cooperative. MSK: No grossly visible deformity. Vital signs: See flowsheet Vital Signs: Vital Signs: Last Vital Signs Temp 98.1 F 03/08/25 06:32 Pulse 72 03/08/25 06:32 Resp 16 03/08/25 06:32 BP 147/83 H 03/08/25 06:32 Pulse Ox 95 03/08/25 06:32 O2 Del Method Room Air 03/08/25 06:32 BMI result Body Mass Index 19.8 Medications Administered Discontinued Medications Generic Name Dose Route Start Last Admin Trade Name Freq PRN Reason Stop Dose Admin Albuterol/Ipratropium 3 ml 03/08/25 05:33 03/08/25 06:12 Albuterol/Iprat 2.5/0.5mg 3 Ml Ampul.Neb INHALE 03/08/25 05:34 3 ml ONCE ONE Administration Prednisone 60 mg 03/08/25 05:33 03/08/25 05:58 Prednisone 20 Mg Tablet PO 03/08/25 05:34 60 mg ONCE ONE Administration Medical Decision Making Medical Decision Making MDM Narrative: Medical Decision Makin-year-old pretty well-appearing male with underlying COPD with subjective shortness of breath. Mild scant expiratory only wheezing. No distress. Plan for steroid course and DuoNeb no evidence of pneumonia no fever no sepsis criteria Preliminary Favored Differential Diagnosis: COPD exacerbation, bronchitis, viral syndrome, pneumoniaamong additional considered etiologies Testing Interpreted Independently: See below for details Radiology or Lab testing Results Reviewed: See below for details Consults: See below for details Independent Historians/External Chart Reviews: See below for details Social Determinants of Health Impacting MDM/Planning: See below for details Lab Data 03/08/25 04:21 03/08/25 04:21 Labs: Lab Results 03/08/25 Range/Units 04:21 WBC 7.0 (4.8-10.8) X10*3/uL RBC 5.02 (4.60-5.80) X10*6/uL Hgb 15.3 (14.0-18.0) g/dl Hct 45.7 (42.0-52.0) % MCV 91.0 (80.0-98.0) fL MCH 30.5 (27.0-33.0) pg MCHC 33.5 (31.0-36.0) g/dl RDW 12.6 (11.0-16.0) % Plt Count 227 (160-400) X10*3/uL MPV 9.9 (9.4-12.4) fL Immature Gran % (Auto) 0.4 (0.0-0.4) % Neut % (Auto) 62.0 (45-73) % Lymph % (Auto) 19.3 L (20-40) % Mcduffie % (Auto) 6.0 (2-11) % Eos % (Auto) 11.4 H (0-4) % Baso % (Auto) 0.9 (0-2) % Lymph # (Auto) 1.3 (1.2-4.9) X10*3/uL Mcduffie # (Auto) 0.4 (0.1-1.2) X10*3/uL Eos # (Auto) 0.8 H (0.0-0.4) X10*3/uL Baso # (Auto) 0.1 (0.0-0.2) X10*3/uL Abs Immat Gran (auto) 0.03 (0.00-0.03) X10*3/uL Absolute Neuts (auto) 4.3 (2.0-8.3) x10*3/uL Absolute Nucleated RBC 0.000 (0.0-0.012) X10*3/uL Nucleated RBC % (auto) 0.0 (0.0-0.2) /100WBC Sodium 142 (135-145) mmol/L Potassium 3.8 (3.3-5.1) mmol/L Chloride 108 (96-108) mmol/L Carbon Dioxide 23 (22-29) mmol/L Anion Gap 15 (12-20) BUN 14 (9-16) mg/dL Creatinine 0.80 (0.5-1.4) mg/dL Estim Creat Clear Calc 79.2 Estimated GFR > 60 Random Glucose 104 (60-115) mg/dL Calcium 9.3 (8.4-10.2) mg/dL Total Bilirubin 0.6 (0.0-1.0) mg/dL AST 27 (5-37) U/L ALT 42 H (0-40) U/L Alkaline Phosphatase 83 (39-117) U/L NT-Pro-B Natriuret Pep 47.3 (<300) pg/mL Total Protein 6.8 (6.5-8.0) g/dL Albumin 4.4 (3.5-5.0) g/dL Discharge Plan Discharge Clinical Impression: COPD (chronic obstructive pulmonary disease) Patient Disposition: Home, Self-Care Instructions: Chronic Bronchitis (ED) Additional Instructions: You were evaluated in the emergency department with a chest x-ray did not have any acute findings on this including no evidence of pneumonia or fluid in your lungs. You did have a very subtle wheeze and bronchospastic cough we will start you on a brief course of steroid you should continue to use your albuterol as needed at home up to every 2 hours 2 pumps make sure to use a spacer if needed. Prescriptions: New prednisone 20 mg tablet 60 mg PO DAILY 2 Days Qty: 6 0RF No Action prednisone 20 mg tablet 40 mg PO DAILY 5 Days Qty: 10 0RF cefuroxime axetil 500 mg tablet 500 mg PO BID 7 Days Qty: 14 0RF prednisone 50 mg tablet 50 mg PO DAILY Qty: 4 0RF albuterol sulfate 90 mcg/actuation HFA aerosol inhaler 2 puff inhalation Q4-6H PRN (Reason: shortness of breath or wheezing) Qty: 8.5 0RF albuterol sulfate 2.5 mg /3 mL (0.083 %) solution for nebulization 2.5 mg inhalation Q6H PRN (Reason: wheezing) budesonide-formoterol 160-4.5 mcg/actuation HFA aerosol inhaler 2 puff INHALATION BID Spiriva Respimat 2.5 mcg/actuation mist 2 puff inhalation DAILY albuterol sulfate 90 mcg/actuation aerosol powdr breath activated 2 inh inhalation Q6H PRN (Reason: shortness of breath or wheezing) nicotine 21 mg/24 hr Patch 24 Hour 21 mg transdermal DAILY Qty: 7 0RF loratadine 10 mg Tablet 10 mg PO DAILY Qty: 10 0RF prednisone 20 mg Tablet 40 mg PO DAILY Qty: 8 0RF guaifenesin 100 mg/5 mL Liquid 100 mg PO Q4H Qty: 200 0RF cefuroxime axetil 500 mg Tablet 500 mg PO Q12H Qty: 13 0RF Interventions: ED Discharge Assessment Last Done: 03/08/25 06:32 Discharge Date/Time: 03/08/25 06:39 Print Language: Kyrgyz
--- OUTSIDE RECORDS SUMMARY | 2025-03-08 06:06 | XMS_ITS ---
Author Name [facility] Organization Unknown Results Test Name/Text Value Interpretation Date Range Source Troponin T SerPl-mCnc 12.0 ng/L 12/27/2024 - 23 [facility] Delta NO PREVIOUS RESULT 12/27/2024 - 3 [facility] pro BNP, N-terminal <36.0 pg/mL 12/27/2024 - 125 [facility] Glucose SerPl-mCnc 110.0 mg/dL Above high normal 12/27/2024 65 - 99 [facility] BUN SerPl-mCnc 14.0 mg/dL 12/27/2024 8 - [address] BUN/Creat SerPl 18.0 Ratio 12/27/2024 10 - 25 HH CCT GFR/BSA.pred SerPlBld YAS-PLW-IlGCwt >90.0 12/27/2024 59 - [facility] Globulin Ser Calc-mCnc 2.4 g/dL 12/27/2024 1.5 - 3.9 [facility] Albumin SerPl-mCnc 3.9 g/dL 12/27/2024 3.4 - 4.8 [facility] Prot SerPl-mCnc 6.3 g/dL 12/27/2024 6.3 - 8.[address] Bilirub SerPl-mCnc 0.2 mg/dL 12/27/2024 0.2 - 1 [facility] Albumin/Glob SerPl 1.6 Ratio 12/27/2024 1 - 1.8 [facility] Creat SerPl-mCnc 0.8 mg/dL 12/27/2024 0.5 - 1.3 HH CCT Potassium SerPl-sCnc 3.5 mmol/L 12/27/2024 3.4 - 5 .3 [facility] Chloride SerPl-sCnc 101.0 mmol/L 12/27/2024 98 - 1 07 [facility] Calcium SerPl-mCnc 8.3 mg/dL Below low normal 12/27/2024 8.7 - 10.5 [facility] Sodium SerPl-sCnc 137.0 mmol/L 12/27/2024 136 - 14 5 [facility] Anion Gap Bld-sCnc 11.0 12/27/2024 4 - 16 [facility] AST SerPl-cCnc 20.0 U/L 12/27/2024 10 - 55 [facility] T ALP SerPl-cCnc 88.0 U/L 12/27/2024 45 - 128 [facility] T CO2 SerPl-sCnc 25.0 mmol/L 12/27/2024 22 - 33 HH CCT ALT SerPl-cCnc 30.0 U/L 12/27/2024 10 - 55 [facility] T Imm Granulocytes num Bld Auto 0.04 Thou/uL 12/27/2024 0 - 0.1 [facility] RBC num Bld Auto 4.91 Mil/uL 12/27/2024 4.5 - 6.2 [facility] MCHC RBC Auto-mCnc 33.7 g/dL 12/27/2024 30 - 36 [facility] RDW RBC Auto-Rto 12.8 % 12/27/2024 11.5 - 14.5 [facility] Imm Granulocytes/leuk NFr Bld Auto 0.7 % 12/27/2024 [facility] Lymphocytes/leuk NFr Bld Auto 30.1 % 12/27/2024 [facility] Basophils/leuk NFr Bld Auto 1.0 % 12/27/2024 [facility] Neutrophils num Bld Auto 2.97 Thou/uL 12/27/2024 2 - 7.5 [facility] WBC num Bld Auto 6.0 Thou/uL 12/27/2024 4 - 11 [facility] Monocytes num Bld Auto 0.38 Thou/uL 12/27/2024 0.2 - 1.5 [facility] Eosinophil/leuk NFr Bld Auto 12.5 % 12/27/2024 [facility] Eosinophil num Bld Auto 0.75 Thou/uL Above high normal 12/27/2024 0 - 0.7 [facility] Lymphocytes num Bld Auto 1.81 Thou/uL 12/27/2024 1.5 - 4.5 [facility] MCV RBC Auto 91.0 fL 12/27/2024 80 - 100 [facility] Basophils num Bld Auto 0.06 Thou/uL 12/27/2024 0 - 0.2 [facility] Neutrophils/leuk NFr Bld Auto 49.4 % 12/27/2024 [facility] Hct VFr Bld Auto 44.5 % 12/27/2024 39 - 54 HH CCT Monocytes/leuk NFr Bld Auto 6.3 % 12/27/2024 [facility] PMV Bld Auto 10.2 fL 12/27/2024 7.5 - 12.5 [facility] Hgb Bld-mCnc 15.0 g/dL 12/27/2024 13 - 17.7 [facility] MCH RBC Qn Auto 30.5 pg 12/27/2024 27 - [address] Platelet num Bld Auto 224.0 Thou/uL 12/27/2024 150 - 450 [facility] BUN/Creat SerPl 17.0 Ratio 12/13/2024 10 - 25 HH CCT Chloride SerPl-sCnc 105.0 mmol/L 12/13/2024 98 - 1 07 [facility] CO2 SerPl-sCnc 24.0 mmol/L 12/13/2024 22 - 33 HH CCT Sodium SerPl-sCnc 137.0 mmol/L 12/13/2024 136 - 14 5 [facility] Creat SerPl-mCnc 0.7 mg/dL 12/13/2024 0.5 - 1.3 HH CCT Calcium SerPl-mCnc 8.7 mg/dL 12/13/2024 8.7 - 10.5 [facility] Anion Gap Bld-sCnc 8.0 12/13/2024 4 - 16 [facility] BUN SerPl-mCnc 12.0 mg/dL 12/13/2024 8 - [address] Glucose SerPl-mCnc 113.0 mg/dL Above high normal 12/13/2024 65 - 99 [facility] GFR/BSA.pred SerPlBld [id number] >90.0 12/13/2024 59 - [facility] Potassium SerPl-sCnc 4.0 mmol/L 12/13/2024 3.4 - 5 .3 [facility] Monocytes/leuk NFr Bld Auto 1.9 % 12/13/2024 [facility] Imm Granulocytes num Bld Auto 0.04 Thou/uL 12/13/2024 0 - 0.1 [facility] RDW RBC Auto-Rto 13.1 % 12/13/2024 11.5 - 14.5 [facility] Basophils/leuk NFr Bld Auto 0.4 % 12/13/2024 [facility] MCH RBC Qn Auto 30.5 pg 12/13/2024 27 - [address] Hgb Bld-mCnc 14.6 g/dL 12/13/2024 13 - 17.7 [facility] Hct VFr Bld Auto 43.4 % 12/13/2024 39 - 54 HH CCT Neutrophils num Bld Auto 6.46 Thou/uL 12/13/2024 2 - 7.5 [facility] Basophils num Bld Auto 0.03 Thou/uL 12/13/2024 0 - 0.2 [facility] PMV Bld Auto 9.6 fL 12/13/2024 7.5 - 12.5 [facility] Lymphocytes/leuk NFr Bld Auto 10.2 % 12/13/2024 [facility] Eosinophil/leuk NFr Bld Auto 3.2 % 12/13/2024 [facility] Eosinophil num Bld Auto 0.25 Thou/uL 12/13/2024 0 - 0.7 [facility] Platelet num Bld Auto 212.0 Thou/uL 12/13/2024 150 - 450 [facility] Monocytes num Bld Auto 0.15 Thou/uL Below low normal 12/13/2024 0.2 - 1.5 [facility] MCHC RBC Auto-mCnc 33.6 g/dL 12/13/2024 30 - 36 [facility] Imm Granulocytes/leuk NFr Bld Auto 0.5 % 12/13/2024 [facility] WBC num Bld Auto 7.7 Thou/uL 12/13/2024 4 - 11 [facility] MCV RBC Auto 91.0 fL 12/13/2024 80 - 100 [facility] Neutrophils/leuk NFr Bld Auto 83.8 % 12/13/2024 [facility] Lymphocytes num Bld Auto 0.79 Thou/uL Below low normal 12/13/2024 1.5 - 4.5 [facility] RBC num Bld Auto 4.78 Mil/uL 12/13/2024 4.5 - 6.2 [facility] Encounters Encounter Type Encounter Reason Primary Diagnosis Location Date Emergency Chronic obstructive pulmonary disease with (acute) exacerbation Chronic obstructive pulmonary disease with (acute) exacerbation [facility] 12/27/2024 Emergency Chronic obstructive pulmonary disease with (acute) exacerbation Chronic obstructive pulmonary disease with (acute) exacerbation [facility] 12/13/2024 Care Team Organization Name Specialty Phone Email Start Date End Da te [facility] Primary [facility] 12/13/2024 [facility] 12/13/2024
--- OUTSIDE RECORDS SUMMARY | 2025-03-08 06:06 | XMS_ITS | Clinical Summary ---
Author Organization [facility] Address [address] [place] [address] Care Team Providers Care Design Director Name Role Phone Daniel Maria Primary Care Provider [phone] Source Comments PLEASE NOTE, if this patient [...] times a day WITH MEALS 180 Tablet 1 024 Active albuterol (PROVENTIL) 2.5 mg /3 mL (0.083 %) nebulizer solutionIndicat ions:COPD with chronic bronchitis Take 3 mL by nebulization every 4 (four) hours as needed for wheezing 500 mL 1 025 Active tiotropium bromide (SPIRIVA RESPIMAT) 2.5 mcg/actuation mistIndications :COPD with chronic bronchitis INHALE 2 PUFFS BY MOUTH INTO THE lungs ONCE DAILY 4 g 11 025 Active albuterol HFA (VENTOLIN HFA) 90 mcg/actuation inhalerIndicati ons:COPD with chronic bronchitis INHALE TWO PUFFS BY MOUTH EVERY 6 HOURS NEEDED FOR SHORTNESS OF BREATH OR FOR WHEEZING 18 g 025 Active aspirin [address] tabletIndicatio ns:Personal history of ND (myocardial infarction) Take 1 Tablet by mouth once daily 60 Tablet 1 025 Active atorvastatin (LIPITOR) 40 mg tabletIndicatio ns:Personal history of ND (myocardial infarction) Take 1 Tablet by mouth once daily 30 Tablet 2 025 Active montelukast (SINGULAIR) 10 mg tabletIndicatio ns:COPD with chronic bronchitis Take 1 Tablet by mouth every morning 30 Tablet 8 025 Active budesonide-form oteroL (SYMBICORT) 160-4.5 mcg/actuation inhalerIndicati ons:COPD with chronic bronchitis INHALE 2 PUFFS BY MOUTH INTO THE LUNGS two (2) times a day FOR copd. rinse mouth and throat after use. 10.2 g 5 Active roflumilast (DALIRESP) 250 mcg tabletIndicatio ns:prevention of bronchospasm with chronic bronchitis Take 1 Tablet by mouth once daily Indications: prevention of bronchospasm with chronic bronchitis. 30 Tablet 2 025 Active amLODIPine (NORVASC) 5 mg tabletIndicatio ns:Primary hypertension Take 1 Tablet by mouth once daily. 60 Tablet 1 025 Active blood pressure monitorIndicati ons:Primary hypertension Dispense one automated BP monitor, to be used daily and prn, length of need 99 years. 1 Kit 1 025 Active predniSONE (DELTASONE) 5 mg tabletIndicatio ns:COPD exacerbation,As thma-COPD overlap syndrome TAKE 1 TABLET BY MOUTH ONCE DAILY 30 Tablet 1 025 Active amLODIPine (NORVASC) 5 mg tabletIndicatio ns:Primary hypertension Take 1 Tablet by mouth once daily 60 Tablet 1 025 2024 Discontinued(R eorder (E-Cancel Not Sent)) predniSONE (DELTASONE) 5 mg tabletIndicatio ns:COPD exacerbation,As thma-COPD overlap syndrome Take 1 Tablet by mouth once daily. 30 Tablet 1 025 2024 Discontinued blood pressure monitorIndicati ons:Primary hypertension Dispense one automated BP monitor, to be used daily and prn, length of need 99 years. 1 Kit 1 025 2024 Discontinued(C ancelled) Active Problems Problem Noted Date Diagnosed Date Liver hemangioma 02/22/2025 Overview (02/22/2025): January 2025 ultrasound [place] Current moderate episode of major depressive dis order 09/15/2024 Personal history of ND (myocardial infarction) 0 10/05/2022 Overview (10/05/2022): August 2022 Acute pain of right lower extremity 12/29/2018 Overview (12/29/2018): 12/16/18 - Patient c/o right anterior pickard pain x 3 days + radiation to right toes and pain worsening with ambulation. 12/23/18 - CR Tibia Fibula RT 2 Views, [facility], Diagnostic Imaging Dept, Findings: No fracture or dislocation. Mild soft tissue swelling along anterior aspect of distal leg. Knee and ankle joints intact. IMPRESSION: No evidence of fracture. COPD exacerbation 10/30/2018 Abnormal PFT 07/26/2018 Overview (07/26/2018): 07/10/18 [facility] IMPRESSION: + `Moderate degree of airflow obstruction with some partial improvement after bronchodilators. SIRS (systemic inflammatory response syndrome) 0 06/23/2018 Marijuana smoker 04/12/2018 Tobacco dependence 04/12/2018 Hallux valgus (acquired), left foot 04/12/2018 COPD with chronic bronchitis 03/31/2018 Overview (08/04/2020): 07/30/2020 - Patient followed by [facility] [place] pulmonology. Alpha 1 antitrypsin NEGATIVE. 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 12/29/18 - Chest Routine 2 Views, 12/18/18, [facility] Diagnostic Imaging Dept, IMPRESSION: Pulmonary hyperinflation which can be seen in setting of chronic obstructive pulmonary disease. Annual low dose lung CT recommended. [facility] Comparison: 03/24/18, 06/23/16 Hyperinflated lungs, consistent with chronic obstructive airways disease. No significant change. [facility] 07/10/18 The patient had a spirometry. [...] Encounters Date Type Department Care Team Description 02/24/2025 Results Follow-Up [facility] [address] [place] [phone] Ramone Manuel RN 02/08/2025 9:40 AM EDT Office Visit [address] [phone] Justice Landis NP 12/31/2024 11:00 AM EDT Office Visit [address] [phone] Daniel Maria PA from Last 3 Months Immunizations Immunization Administration Dates Next Due Flu, Preservative Free 04/11/2018 INFLUENZA, SEASONAL, INJECTABLE 01/10/2016 Influenza (FLUZONE), high-dose, trivalent, PF Moderna COVID-19 (Spikevax), Mrna, Lnp-s, Pf, 50 Mcg/0.5 Ml, 12yr+ 07/09/2024 Moderna COVID-19 Vaccine, re d cap blue label, 12+ Primary Series 09/12/2020,08/15/2020 PFIZER COVID VACCINE, PURPLE CAP, 12+ 12/20/2021 PNEUMOCOCCAL CONJUGATE PCV 13 10/16/2021 PNEUMOCOCCAL CONJUGATE PCV 20 (Prevnar 20) 07/09 PNEUMOCOCCAL POLYSACCHARIDE PPV23 (Pneumovax 23) 04/11/2018 PPD 06/05/2016 TDAP 06/05/2016 ZOSTER VACCINE, [...] Financial Resource Strain Answer Date R ecorded Hard to pay for: Utilities 2 11/19 Stress Answer Date Recorded Do you feel these kinds of stress these days? 1 11/20/2023 Physical Activity Answer Date Recorded Physical Activity 0 12/08/2019 Food Insecurity Answer Date Recorded Within the past 12 months, t he food you bought just didn't last and you didn't have enough money to get more. 2 11/20/19 Transportation Needs Answer Date Record ed Hard to pay for: Transportation 1 11/20/2023 Housing Stability Answer Date Recorded Hard to pay for: Rent/Mortgage payment 2 11/20/2023 Safety and Environment Answer Date Fidel rded Safety 1 05/15/2023 Utilities Answer Date Recorded Hard to pay for: Utilities 2 11/19 Employment Answer Date Recorded Stress 0 12/08/2019 [...] Sign Reading Time Taken Comments Blood Pressure 132/82 02/08/2025 9:38 AM EDT Pulse 61 02/08/2025 9:38 AM EDT Temperature 36.6 C (97.8 F) 02/08/2025 9:38 AM EDT Respiratory Rate 16 02/08/2025 9:38 AM EDT Oxygen Saturation 94% 02/08/2025 9:38 AM EDT Inhaled Oxygen Concentration - - Weight 61.7 kg (136 lb) 02/08/2025 9:38 AM EDT Height 175.3 cm (5' 9 ) 02/08/2025 9:38 AM EDT Body Mass Index 20.08 02/08/2025 9:38 AM EDT Plan of Treatment Upcoming Encounters Date Type Department Care Team (Late st Contact Info) Description 03/23/2025 1:40 PM EST Office Visit [facility] [address] [place] [phone] Radha Holley [address] [place] [address] Health Maintenance Due Date Last Done Comments CT Colonography 11/17/2004 Colonoscopy 11/17/2004 Fecal DNA 11/17/2004 Flexible Sigmoidoscopy 11/17/2004 Imm-RSV (adult) (1 - Risk 50 -74 years 1-dose series) 11/17/2009 Colorectal Cancer Screening 12/20/2021 FIT/gFOBT 12/20/2021 12/20/2020, 12/21, 01/10/2016 Tobacco Cessation Counseling (#1) 12/20/2023 12/20/2022, 10/03/2022, 06/19/2022, Additional history exists Lipid Screening 12/21/2023 12/20/2022, 09/21, 07/28/2020, Additional history exists Depression Monitoring 10/09/2024 07/09/2024 , 04/30/2022, 08/24/2021, Additional history exists Abdominal Aortic Aneurysm Screening 11/17/2024 Falls Prevention 11/17/2024 [id number] ( season) 2024 07/09/2024, 12/20/2021, 04/20/2021, Additional history exists Annual Wellness (Adult): Indicated (All Coverage) 07/09/2025 07/09/2024, 12/20/2022, 12/20/2021, Additional history exists Anxiety Screening 07/09/2025 07/09/2024 Dental BW 09/20/2025 09/18/2024 Dental Examination 09/20/2025 09/18/2024 Dental Perio Charting 09/20/2025 09/18/2024 Dental Prophy 09/24/2025 09/22/2024 Diabetes Screening 02/25/2026 02/25/2025, 0 12/27/2024, 12/13/2024, Additional history exists Imm-DTaP/Tdap/Td (2 - Td or Tdap) 06/05/2026 017 Dental FMX/Pano 09/20/2029 09/18/2024 Hepatitis C Screening Completed 05/21/2018 HIV Screening Completed 10/16/2021 Imm-Zoster, Recombinant Completed 10/16/2021, 12/20 Alcohol and Drug Screen Completed 07/10/19, 06/19/2022, 08/24/2021, Additional history exists Imm-Pneumococcal 50+ Completed 07/09/2024, 10/16/2021, 04/11/2018 Imm-Influenza Discontinued 12/31/2024, 05/23, 04/11/2018, Additional history exists Goals Goal Patient Goal Type Associated Problems Recent Progress Patient-Stated? Author Decrease ED Utilization. Priority #2 General Yes Juan F Kaminski RN Note: Will attend all appointments with providers and other specialists. Will follow medical regimen and discuss any concern or problem with Drink Box Mechanic(CM). Will call CM to triage any medical problem or exacerbation of COPD, if possible, before calling 911 or go to the ED. Decrease COPD Exacerbation: Priority # 1 General Yes Juan F Kaminski, NYDIA Note: Will decrease cigarette smoking by smoking not more than 1/4 pack a day within the next 6 months. Take medications as prescribed for the next 6 months. Drink Box Mechanic will provide education and encouragement on smoking cessation and medical regimen for the next 6 months. Procedures Procedure Name Priority Date/Time Associated Diagnosis Comments CARD SCANNED DOCUMENT 02/25/2025 3:00 AM EST IMAGING SCANNED DOCUMENT 02/25/2025 3:00 AM EST IMAGING SCANNED DOCUMENT 02/15/2025 3:00 AM EDT IMAGING SCANNED DOCUMENT 02/02/2025 3:00 AM EDT CARD SCANNED DOCUMENT 01/25/2025 3:00 AM EDT IMAGING SCANNED DOCUMENT 01/25/2025 3:00 AM EDT CARD SCANNED DOCUMENT 12/20/2024 3:00 AM EDT HEALTH HISTORY SCANNED DOCUMENT 12/13/2024 3:00 AM EDT PROPHYLAXIS - ADULT Routine 09/22/2024 1 :40 PM EDT Chronic gingivitis, plaque induced INTRAORAL - COMP SERIES OF RADIOGRAPHIC IMAGES Routine 09/18/2024 1:40 PM EDT Retained tooth root Caries Encounter for dental examination Fracture of crown, enamel, and dentin of tooth without pulp exposure COMP ORAL EVALUATION - NEW/ESTABLISHED PATIENT Routine 09/18/2024 1:40 PM EDT Caries Encounter for dental examination COMPREHENSIVE METABOLIC PANEL Routine 12/20/2022 10:16 AM [...] Recently Relevant to Health Maintenance Results * CARD SCANNED DOCUMENT (02/25/2025 3:00 AM EST) Only the most recent of3 resultswithin the time period is included. 02/25/2025 3:00 AM EST Daniel Metzgervais PA SCAN ECGS Final Result * IMAGING SCANNED DOCUMENT (02/25/2025 3:00 AM EST) Only the most recent of4 resultswithin the time period is included. 02/25/2025 3:00 AM EST Daniel Candace PA SCAN IMAGING Final Result * HEALTH HISTORY SCANNED DOCUMENT (12/13/2024 3:00 AM EDT) 12/13/2024 3:00 AM EDT [facility] Provider Default SCAN OTHER ORDERS Final Re sult * LIPID PANEL (12/20/2022 10:16 AM EDT) Pathologist [facility] CHOLESTEROL, TOTAL 119 <200 mg/dL Consulted [facility] HDL CHOLESTEROL 69 > OR = 40 mg/dL [facility] TRIGLYCERIDES 64 <150 mg/dL Consulted [facility] LDL-CHOLESTEROL 36 99 mg/dL (calc) Consulted [facility] Comment: Reference range: <100 Desirable range <100 mg/dL for primary prevention; <70 mg/dL for patients with CHD or diabetic patients with > or = 2 CHD risk factors. LDL-C is now calculated using the Ramu calculation, which is a validated novel method providing better accuracy than the Friedewald equation in the estimation of LDL-C. Guillermo SS et al. RHIANNA. 2013;310(19): 8882-1708 (http://education.AquaBling/faq/EFB996) CHOL/HDLC RATIO 1.7 <5.0 (calc) [facility] NON-HDL CHOLESTEROL 50 <130 mg/dL (calc) [facility] Comment: For patients with diabetes plus 1 major ASCVD risk factor, treating to a non-HDL-C goal of <100 mg/dL (LDL-C of <70 mg/dL) is considered a therapeutic option. Blood Blood / Unknown 12/20/2022 1 0:16 AM EDT 12/20/2022 10:16 AM EDT Ruth Messina PATIENT OBSERVER-C LAB - BLOOD DRAW Final Re sult [facility] [address] [address], Consulted [facility] [address] [place] [address] * (ABNORMAL) COMPRE METAB PANEL (12/20/2022 10:16 AM EDT) [facility] GLUCOSE 82 65 - 99 mg/dL [facility] Comment: Fasting reference interval UREA NITROGEN (BUN) 12 7 - 25 mg/dL [facility] CREATININE (blood) 0.80 0.70 - 1.35 mg/dL Consulted [facility] EGFR 99 > OR = 60 mL/min/1. 73m2 Consulted [facility] BUN/CREATININE RATIO SEE NOTE: Consulted [facility] Comment: Not Reported: BUN and Creatinine are within reference range. SODIUM 141 135 - 146 mmol/L Consulted [facility] POTASSIUM 3.3(L) 3.5 - 5.3 mmol/L Consulted [place] [employer] CHLORIDE 105 98 - 110 mmol/L Consulted [facility] CARBON DIOXIDE 27 20 - 32 mmol/L Consulted [facility] CALCIUM 9.1 8.6 - 10.3 mg/dL Consulted [facility] PROTEIN, TOTAL 5.9(L) 6.1 - 8.1 g/dL Consulted [facility] ALBUMIN 3.9 3.6 - 5.1 g/dL Consulted [facility] GLOBULIN 2.0 1.9 - 3.7 g/dL (calc) Consulted [facility] ALBUMIN/GLOBULI N RATIO 2.0 1.0 - 2.5 (calc) Consulted [facility] BILIRUBIN, TOTAL 0.4 0.2 - 1.2 mg/dL Consulted [facility] ALKALINE PHOSPHATASE 106 35 - 144 U/L Consulted [facility] AST 20 10 - 35 U/L Consulted [facility] ALT 23 9 - 46 U/L Consulted [facility] Blood Blood / Unknown 12/20/2022 1 0:16 AM EDT 12/20/2022 10:16 AM EDT Ruth Messina PATIENT OBSERVER-C LAB - BLOOD DRAW Edited R esult - Final Consulted [address] [address], Consulted [facility] [address] [place] [address] * HIV 1/2 AG & AB W/RFLX (4TH GEN) (10/16/2021 10:16 AM EDT) HIV AG/AB, 4TH GEN NON-REAC TIVE NON-REAC TIVE Consulted [facility] Comment: HIV-1 antigen and HIV-1/HIV-2 antibodies were not detected. There is no laboratory evidence of HIV infection. PLEASE NOTE: This information has been disclosed to you from records whose confidentiality may be protected by state law. If your state requires such protection, then the state law prohibits you from making any further disclosure of the information without the specific written consent of the person to whom it pertains, or as otherwise permitted by law. A general authorization for the release of medical or other information is NOT sufficient for this purpose. For additional information please refer to http://education.MD2U/faq/OJU071 (This link is being provided for informational/ educational purposes only.) The performance of this assay has not been clinically validated in patients less than 2 years old. Blood Blood / Unknown 10/16/2021 1 0:16 AM EDT 10/16/2021 10:16 AM EDT us Daniel MARTINEZ LAB - BLOOD DRAW Final Result Performing Organization Address [facility] Co de Phone Number Consulted [address] [address], [employer] [address],[facility] [place] [address] * FECAL GLOBIN BY IMMUNOCHEMISTRY (FIT) (12/20/2020 9:51 AM EDT) FECAL GLOBIN BY IMMUNOCHEMISTRY See Note [facility] Comment: FECAL GLOBIN BY IMMUNOCHEMISTRY Micro Number: [id number] Test Status: Final Specimen Source: Insure (tm) fobt test card Specimen Quality: Adequate Fecal Globin: Not Detected Test results may be invalid as no date of collection was provided. Specimens are stable for 14 days. NO COLLECTION DATE RECEIVED. WE HAVE USED THE DATE THE SPECIMEN WAS RECEIVED BY THIS LABORATORY THE COLLECTION DATE. IF THIS IS INCORRECT, PLEASE CONTACT CLIENT SERVICES. PHONE NUMBER: Stool Stool specimen / Unknown 12/20/2020 9:51 AM EDT 12/23/2020 3:24 PM EDT us Daniel MARTINEZ LAB BODY FLUIDS AND STOOLS AMB ULATORY Final Result Performing Organization Address [facility]/ZIP Co de Phone Number Consulted [address] [address], [employer] [address] [address] * (ABNORMAL) HEPATITIS A,B,C PANEL (05/21/2018 9:44 AM EST) HEPATITIS B SURFACE ANTIBODY NEGATIVE NEGATIVE [facility] HEPATITIS B SURFACE ANTIGEN NEGATIVE NEGATIVE [facility] Comment: Over the counter supplements containing high doses of biotin may interfere with this assay. If interference is suspected, patients shoud be retested after refraining from biotin supplements for 72 hours. HEPATITIS C VIRUS DIAGNOSTIC NEGATIVE NEGATIVE [facility] HEPATITIS B CORE ANTIBODY NEGATIVE NEGATIVE [facility] HEPATITIS A ANTIBODY TOTAL POSITIVE(A) NEGATIVE [facility] Comment: Over the counter supplements containing high doses of biotin may interfere with this assay. If interference is suspected, patients shoud be retested after refraining from biotin supplements for 72 hours. Blood specimen (specimen) Blood / Unknown 05/21/2018 9:44 AM EST 05/21/2018 10:11 AM EST Narrative [facility] - 05/21/2018 12:53 PM EST [employer], [place] [address] [employer] - Odalis Torres MD PT ID [id number] ORD# [id number] Shena Marquez PA-C LAB - BLOOD DRAW [place] [address], from Last 3 Months or Most Recently Relevant to Health Maintenance Insurance [employer] Member Subscriber Plan / Payer (Ef fective 2024-Present) Name:Ananth Dubose Relation to Subscriber:Self Name:Ananth Dubose Payer ID:[id number] Group ID:Not on file Type:[employer] Address: [address] [address] [place] [address] [facility] Care Teams Design Director Relationship Specialty Start Date End Date Daniel Maria PA PCP - General Internal Medicine 09/25/18
--- OUTSIDE RECORDS SUMMARY | 2025-03-08 06:06 | XMS_ITS | Clinical Summary ---
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 Use with your aerosol machine 25 each 5 Active predniSONE (DELTASONE) 20 MG tablet Take 2 tablets (40 mg total) by mouth daily. With food. 10 tablet Active Encounters Date Type Department Care Team Description 12/27/2024 6:52 AM EDT - 12/27/2024 9:07 AM EDT Emergency [facility] Emergency Department [address] [place] [address] [phone] Louie Collins MD COPD exacerbation (HCC) (Primary Dx) Discharge Disposition: Home or Self Care 12/27/2024 Travel 12/13/2024 7:29 AM EDT - 12/13/2024 9:49 AM EDT Emergency [facility] Emergency Department [address] [place] [address] [phone] Louie Collins MD COPD exacerbation (HCC) (Primary Dx) Discharge Disposition: Home or Self Care 12/13/2024 Travel from Last 3 Months Social History Tobacco Use Types Packs/Day Years Used Date Smoking Tobacco: Never Assessed Sex and Gender Information Value Date Recorded Sex Assigned at Male 12/13/2024 9:09 AM EDT Legal Sex Male 7:16 AM EDT Gender Identity Male 12/13/2024 9:09 AM EDT Sexual Orientation Heterosexual (straight) 12/13 9:09 AM EDT Last Filed Vital Signs Vital Sign Reading Time Taken Comments Blood Pressure 133/88 12/27/2024 9:04 AM EDT Pulse 69 12/27/2024 9:04 AM EDT Temperature 36.8 C (98.3 F) 12/27/2024 5:13 AM EDT Respiratory Rate 20 12/27/2024 9:04 AM EDT Oxygen Saturation 96% 12/27/2024 9:04 AM EDT Inhaled Oxygen Concentration - - Weight - - Height - - Body Mass Index - - Plan of Treatment Health Maintenance Due Date Last Done Comments Advance Care Planning 1960 Hepatitis C Virus Screening 1960 DTaP/Tdap/Td Vaccines (1 - Tdap) 11/17/1978 Pneumococcal Vaccines 50+ (1 of 2 - PCV) 11/17/1978 Colonoscopy 11/17/2004 RSV Vaccine 50 years and older and Patients (1 - Risk 50-74 years 1-dose series) 11/17/2009 Zoster (Shingles) Vaccine (1 of 2) 11/17/2009 Influenza Vaccine 11/20/2024 04/11/2018, 01/10/2016 COVID-19 Vaccine ( season) 2025 07/09/2024, 12/20/2021, 09/12/2020, Additional history exists HIV Screening Completed 10/16/2021 Hepatitis B Vaccines Aged Out No long er eligible based on patient's age to complete this topic Procedures Procedure Name Priority Date/Time Associated Diagnosis Comments XR CHEST 2 VIEWS STAT 12/27/2024 5:27 AM EDT HIGH SENSITIVITY TROPONIN T STAT 12/27/2024 5:19 AM EDT PROBNP, N-TERMINAL STAT 12/27/2024 5: 19 AM EDT COMPREHENSIVE METABOLIC PANEL STAT 12/27/2024 5:19 AM EDT COMPLETE BLOOD COUNT, WITH DIFFERENTIAL STAT 12/27/2024 5:19 AM EDT ECG 12-LEAD STAT 12/27/2024 5:10 AM EDT BASIC METABOLIC PANEL STAT 12/13/2024 8:53 AM EDT COMPLETE BLOOD COUNT, WITH DIFFERENTIAL STAT 12/13/2024 8:27 AM EDT XR CHEST 2 VIEWS STAT 12/13/2024 7:55 AM EDT ECG 12-LEAD STAT 12/13/2024 7:21 AM EDT from Last 3 Months Results * XR Chest 2 views (12/27/2024 5:27 AM EDT) Only the most recent of2 resultswithin the time period is included. Anatomical Region Laterality Modality Chest Computed Radiogr aphy 12/27/2024 7:49 AM EDT Impressions 12/27/2024 7:49 AM EDT Impression: No acute pulmonary disease. Narrative 12/27/2024 7:49 AM EDT TECHNIQUE : PA & LATERAL Views of the chest are provided. COMPARISON: Chest x-ray from 12/13/2024 FINDINGS: Cardiac silhouette: Normal. Mediastinum: Normal. Lungs: No Consolidation. Bilateral hyperinflated lung cunningham, unchanged Pleural surfaces: No pleural effusion. Pneumothorax: None. Procedure Note Jefferson Gross MD - 12/27/2024 TECHNIQUE : PA & LATERAL Views of the chest are provided. COMPARISON: Chest x-ray from 12/13/2024 FINDINGS: Cardiac silhouette: Normal. Mediastinum: Normal. Lungs: No Consolidation. Bilateral hyperinflated lung cunningham, unchanged Pleural surfaces: No pleural effusion. Pneumothorax: None. IMPRESSION: Impression: No acute pulmonary disease. Louie Collins MD IMG DIAGNOSTIC IMAGING ORDERAB LES Final Result * High Sensitivity Troponin T (12/27/2024 5:19 AM EDT) Pathologist [facility] High Sensitivity Troponin T 12 <23 ng/L 12/27/2024 6:02 AM EDT [facility] Delta (Change) NO PREVIOUS RESULT <3 12/27/2024 6:02 AM EDT [facility] Blood Blood specimen / Unknown 12/27/2024 5:19 AM EDT 12/27/2024 5:29 AM EDT Louie Collins MD LAB BLOOD ORDERABLES Final Res ult Performing Organization Address City/[facility]/ZIP Co de Phone Number [facility] [address] [place] [address] [address] [place] [address], [facility] [address] [place] [address] [address] [place] [address] * proBNP, N-terminal (12/27/2024 5:19 AM EDT) proBNP, N-terminal <36 <125 pg/mL 12/27/2024 6:02 AM EDT [facility] Blood Blood specimen / Unknown 12/27/2024 5:19 AM EDT 12/27/2024 5:29 AM EDT Louie Collins MD LAB BLOOD ORDERABLES Final Res ult Performing Organization Address City/[facility] Co de Phone Number [facility] [address] [place], [place] [address] [place] [address], [facility] [address] [place] [address].[address] [place] [address] * (ABNORMAL) Complete Blood Count, with Differential (12/27/2024 5:19 AM EDT) Only the most recent of2 resultswithin the time period is included. White Blood Cell Count 6.0 4.0 - 11.0 Thou/uL 12/27/2024 5:47 AM EDT [facility] Platelet Count 224 150 - 450 Thou/uL 12/27/2024 5:47 AM EDT [facility] Hemoglobin 15.0 13.0 - 17.7 g/dL 12/27/2024 5:47 AM EDT [facility] Hematocrit 44.5 39.0 - 54.0 % 12/27/2024 5:47 [address] [facility] Red Blood Cell Count 4.91 4.50 - 6.20 Mil/uL 12/27/2024 5:47 AM [facility] MCV 91 80 - 100 fL 12/27/2024 5:47 AM [facility] MCH 30.5 27.0 - 31.0 pg 12/27/2024 5:47 AM [facility] MCHC 33.7 30.0 - 36.0 g/dL 12/27/2024 5:47 AM [facility] RDW 12.8 11.5 - 14.5 % 12/27/2024 5:47 AM [facility] MPV 10.2 7.5 - 12.5 fL 12/27/2024 5:47 AM [facility] Neutrophils Auto 49.4 % 12/28/19 5:47 AM [facility] Immature Granulocytes 0.7 % 12/27/2024 5:47 AM [facility] Lymphocytes Auto 30.1 % 12/28/19 25 5:47 AM [facility] Monocytes Auto 6.3 % 12/27/2024 5:47 AM [facility] Eosinophils Auto 12.5 % 12/28/19 5:47 AM [facility] Basophils Auto 1.0 % 12/27/2024 5:47 AM [facility] Abs Neutrophils Auto 2.97 2.00 - 7.50 Thou/uL 12/27/2024 5:47 AM [facility] Abs Immature Granulocytes 0.04 0.00 - 0.10 Thou/uL 12/27/2024 5:47 AM [facility] Abs Lymphocytes Auto 1.81 1.50 - 4.50 Thou/uL 12/27/2024 5:47 AM [facility] Abs Monocytes Auto 0.38 0.20 - 1.50 Thou/uL 12/27/2024 5:47 AM [facility] Abs Eosinophils Auto 0.75(H) 0.00 - 0.70 Thou/uL 12/27/2024 5:47 AM [facility] Abs Basophils Auto 0.06 0.00 - 0.20 Thou/uL 12/27/2024 5:47 AM [facility] Blood Blood specimen / Unknown 12/27/2024 5:19 AM EDT 12/27/2024 5:29 AM EDT Louie Collins MD LAB BLOOD ORDERABLES Final Res ult [facility] [address] [facility] [address] [place] [address], [facility] [address] [facility] [address] [place] [address] * (ABNORMAL) Comprehensive Metabolic Panel (12/27/2024 5:19 AM EDT) Glucose 110(H) 65 - 99 mg/dL 12/27/2024 6:02 AM [facility] Comment:Fasting: <100 mg/dL, Non-Fasting: <200 mg/dL (ADA 2005) Blood Urea Nitrogen (BUN) 14 8 - 21 mg/dL 12/27/2024 6:02 AM [facility] Creatinine 0.8 0.5 - 1.3 mg/dL 12/27/2024 6:02 AM [facility] eGFR >90 >59 12/27/2024 6:02 AM [facility] Comment:CKD-EPI (2020) in mL /min/1.73 sq meters. Sodium 137 136 - 145 mmol/L 12/27/2024 6:02 AM [facility] Potassium 3.5 3.4 - 5.3 mmol/L 12/27/2024 6:02 AM [facility] Chloride 101 98 - 107 mmol/L 12/27/2024 6:02 AM [facility] CO2 25 22 - 33 mmol/L 12/27/2024 6:02 AM [facility] Calcium 8.3(L) 8.7 - 10.5 mg/dL 12/27/2024 6:02 AM [facility] Alkaline Phosphatase 88 45 - 128 U/L 12/27/2024 6:02 AM [facility] Aspartate Aminotrans (AST) 20 10 - 55 U/L 12/27/2024 6:02 AM EDT [facility] Alanine Aminotrans (ALT) 30 10 - 55 U/L 12/27/2024 6:02 AM T [facility] Bilirubin, Total 0.2 0.2 - 1.0 mg/dL 12/27/2024 6:02 AM [facility] Protein, Total 6.3 6.3 - 8.3 g/dL 12/27/2024 6:02 AM EDT [facility] Albumin 3.9 3.4 - 4.8 g/dL 12/27/2024 6:02 AM [facility] BUN/Creatinine Ratio 18 10.0 - 25.0 Ratio 12/27/2024 6:02 AM [facility] Globulin 2.4 1.5 - 3.9 g/dL 12/27/2024 6:02 AM [facility] Albumin/Globulin Ratio 1.6 1.0 - 1.8 Ratio 12/27/2024 6:02 AM [facility] Anion Gap 11 4 - 16 12/27/2024 6:02 AM [facility] Blood Blood specimen / Unknown 12/27/2024 5:19 AM EDT 12/27/2024 5:29 AM EDT Louie Collins MD LAB BLOOD ORDERABLES Final Res ult [facility] [address] [facility] [address] [place] [address], [facility] [address] [facility] [address] [place] [address] * ECG 12 lead (12/27/2024 5:10 AM EDT) Only the most recent of2 resultswithin the time period is included. Ventricular rate 82 BPM EKG [facility] Atrial rate 82 BPM EKG [facility] P-R interval 146 ms EKG [facility] QRS duration 94 ms EKG [facility] Q-T interval 378 ms EKG [facility] QTC calculation (Bazett) 441 ms EKG [facility] P axis 76 degrees EKG [facility] R axis 69 degrees EKG [facility] T axis 73 degrees EKG [facility] 12/27/2024 5:10 AM EDT Narrative EKG [facility] - 12/28/2024 3:49 PM EDT Normal sinus rhythm with sinus arrhythmia Incomplete right bundle branch block Borderline ECG When compared with ECG of 13-Dec-2024 07:21, Premature atrial complexes are no longer Present Confirmed by MD Barker Maximilian ([id number]) on 12/28/2024 3:49:14 PM Procedure Note Scottie Barker MD - 12/28/2024 Normal sinus rhythm with sinus arrhythmia Incomplete right bundle branch block Borderline ECG When compared with ECG of 13-Dec-2024 07:21, Premature atrial complexes are no longer Present Confirmed by MD Barker Maximilian ([id number]) on 12/28/2024 3:49:14 PM Louie Collins MD ECG ORDERABLES Final Result [facility] * (ABNORMAL) Basic metabolic panel (12/13/2024 8:53 AM EDT) Glucose 113(H) 65 - 99 mg/dL 12/13/2024 9:20 AM T [facility] Comment:Fasting: <100 mg/dL, Non-Fasting: <200 mg/dL (ADA 2005) Blood Urea Nitrogen (BUN) 12 8 - 21 mg/dL 12/13/2024 9:20 AM EDT [facility] Creatinine 0.7 0.5 - 1.3 mg/dL 12/13/2024 9:20 AM T [facility] eGFR >90 >59 12/13/2024 9:20 AM T [facility] Comment:CKD-EPI (2020) in mL /min/1.73 sq meters. Sodium 137 136 - 145 mmol/L 12/13/2024 9:20 AM EDT [facility] Potassium 4.0 3.4 - 5.3 mmol/L 12/13/2024 9:20 AM EDT [facility] Chloride 105 98 - 107 mmol/L 12/13/2024 9:20 AM EDT [facility] CO2 24 22 - 33 mmol/L 12/13/2024 9:20 AM EDT [facility] Anion Gap 8 4 - 16 12/13/2024 9:20 AM EDT [facility] Calcium 8.7 8.7 - 10.5 mg/dL 12/13/2024 9:20 AM EDT [facility] BUN/Creatinine Ratio 17 10.0 - 25.0 Ratio 12/13/2024 9:20 AM EDT [facility] Blood Blood specimen / Unknown 12/13/2024 8:53 AM EDT 12/13/2024 8:57 AM EDT Louie Collins MD LAB BLOOD ORDERABLES Final Res ult [facility] [address] [facility] [address] [place] [address], [facility] [address] [facility] [address] [place] [address] from Last 3 Months Insurance MEDICAID OUT OF STATE [facility] Care Teams Pulverizer Mill Operator Relationship Specialty Start Date End Date Daniel Maria PA [facility] [address] [place] [address] PCP - General Emergency Medicine 12/13/24
--- OUTSIDE RECORDS SUMMARY | 2025-03-08 06:06 | XMS_ITS ---
Author Organization [facility] Address [address] [place] [address] Care Team Providers Care Principal Gifts Officer Name Role Phone Daniel Maria Primary Care Provider [id number] Ast[facility] Program Status:Enrolled (Active) Start date:01/18/2023 Enrollment date:01/18/2023 Case Team Name Relationship Phone Cruz Chavarria PharmD(Responsible S taff) [phone] Continued Care and Services Coordination
--- OUTSIDE RECORDS SUMMARY | 2025-03-08 06:06 | XMS_ITS | Clinical Summary ---
Author Organization Patient Business Ser [facility] Address [address] [place] [address] Care Team Providers Care Freight Caller Name Role Phone Daniel Maria Primary Care Provider [phone] Allergies No known active allergies Medications budesonide-form oteroL (SYMBICORT) 160-4.5 mcg/actuation inhaler INHALE 2 PUFFS BY MOUTH INTO THE LUNGS two (2) times a day FOR copd. rinse mouth and throat after use 07/10/19 25 Active Spiriva Respimat 2.5 mcg/actuation inhalation spray INHALE 2 PUFFS BY MOUTH INTO THE lungs ONCE DAILY Active montelukast (SINGULAIR) 10 mg tablet Take 1 tablet (10 mg total) by mouth 1 (one) time each day in the morning. Active amLODIPine (NORVASC) 5 mg tablet Take 1 tablet (5 mg total) by mouth 1 (one) time each day. Active aspirin 81 mg EC tablet Take 1 tablet (81 mg total) by mouth daily. 08/18/19 23 Active atorvastatin (LIPITOR) 40 mg tablet Take 1 tablet (40 mg total) by mouth 1 (one) time each day. Active carvediloL (COREG) 3.125 mg tablet take 1 tablet by mouth two (2) times a day with meals 09/23/19 25 Active benralizumab (FASENRA) 30 mg/mL auto-injector injection Inject 1 mL (30 mg total) under the skin once every eight weeks. 1 mL 6 09/25/19 25 026 Active mepolizumab (NUCALA) 100 mg/mL injection syringeIndicati ons:Severe persistent asthma, unspecified whether complicated (CMS/[facility] V28),Eosinophil ia, unspecified type Inject 1 mL (100 mg total) under the skin every 28 (twenty-eight) days. 1 mL 11 12/16/19 Active roflumilast 250 mcg tablet Take 250 mcg by mouth daily. 01/01/20 Active albuterol HFA (PROAIR HFA ; PROVENTIL HFA ; VENTOLIN HFA) 90 mcg/actuation inhaler Inhale 2 puffs by mouth every 6 (six) hours if needed for wheezing. Active albuterol 2.5 mg /3 mL (0.083 %) nebulizer solution Take 3 mL (2.5 mg total) by nebulization every 6 (six) hours if needed for wheezing. 30 each 01/26/20 25 Active albuterol 2.5 mg /3 mL (0.083 %) nebulizer solution Take 3 mL (2.5 mg total) by nebulization every 6 (six) hours if needed for wheezing. 75 mL 02/15/20 25 025 Active albuterol 2.5 mg /3 mL (0.083 %) nebulizer solution Take 3 mL (2.5 mg total) by nebulization every 6 (six) hours if needed for wheezing. 75 mL 11/14/19 25 025 Discontinu ed(Reorder ) predniSONE (DELTASONE) 5 mg tablet Take 1 tablet (5 mg total) by mouth 1 (one) time each day. 025 Discontinu ed(Alterna te therapy) predniSONE (DELTASONE) 20 mg tablet Take 3 tablets (60 mg total) by mouth 1 (one) time each day for 4 days. 12 each 02/16/20 25 025 predniSONE (DELTASONE) 50 mg tablet Take 1 tablet (50 mg total) by mouth 1 (one) time each day for 5 days. 5 each 02/26/20 25 025 Active Problems No known active problems Encounters Date Type Department Care Team Description 02/25/2025 9:00 AM EST - 02/25/2025 1:56 PM EST Emergency [facility] Emergency [address] [place] [address] Yefri Winter MD COPD exacerbation (CMS/HCC V24, CMS/HCC V28) (Primary Dx); Mild intermittent asthma with exacerbation Discharge Disposition: Home or Self Care 02/15/2025 2:08 PM EDT - 02/15/2025 11:59 PM EDT Hospital Encounter [facility] Ultrasound [address] [place] [address] Discharge Disposition: Home or Self Care 02/14/2025 4:02 PM EDT - 02/14/2025 6:41 PM EDT Emergency [facility] Emergency [address] [place] [address] Nick Gamez MD Shortness of breath (Primary Dx); Rhinovirus Discharge Disposition: Home or Self Care 01/25/2025 7:38 AM EDT - 01/25/2025 9:41 AM EDT Emergency [facility] Emergency [address] [place] [address] Morenita Caba MD COPD exacerbation (CMS/HCC V24, CMS/[facility] V28) (Primary Dx) Discharge Disposition: Home or Self Care 01/14/2025 Telephone Pulmonology - [place] [address] [phone] Hannah León MD 01/05/2025 Telephone Gastroenterology - [place] 175 [facility] [address] [phone] Nicole Kramer MD 12/20/2024 8:29 AM EDT - 12/20/2024 12:00 PM EDT Emergency [facility] Emergency [address] [place] [address] Lawanda Hanson MD Shortness of breath (Primary Dx) Discharge Disposition: Home or Self Care 12/14/2024 Telephone Pulmonology - [place] [address] [phone] Hannah León MD from Last 3 Months Surgical History Surgery Date Site/Laterality Comments EYE SURGERY PROCEDURE: HISTORICAL EYE SURGERY; COMMENT: enucleation w/implant Medical History Medical History Date Comments Asthma 12/10/2018 DX:Asthma COPD (chronic obstructive pu lmonary disease) ([facility] V24, [facility] V28) 12/10/2018 DX:COPD (chronic o bstructive pulmonary disease) ([facility]) Marijuana use 12/10/2018 DX:Marijuana use Hallux valgus, [...] Tobacco: Never Alcohol Use Standard Drinks/Week Comments Not Currently 0 (1 standard drink = 0.6 oz pur e alcohol) Sex and Gender Information Value Date Recorded Sex Assigned at Not on file Legal Sex Male 12:09 PM EST Gender Identity Not on file Sexual Orientation Not on file Obstetrics History Last Filed Vital Signs Vital Sign Reading Time Taken Comments Blood Pressure 171/85 02/25/2025 11:25 AM EST Pulse 81 02/25/2025 11:25 AM EST Temperature 36.7 C (98 F) 02/25/2025 11:25 AM EST Respiratory Rate 18 02/25/2025 11:25 AM EST Oxygen Saturation 96% 02/25/2025 11:25 AM EST Inhaled Oxygen Concentration - - Weight 62.1 kg (137 lb) 02/25/2025 8:46 AM EST Height 179.8 cm (5' 10.8 ) 02/25/2025 8:46 AM ES T Body Mass Index 19.22 02/25/2025 8:46 AM EST Plan of Treatment Upcoming Encounters Date Type Department Care Team (Late st Contact Info) Description 03/22/2025 1:00 PM EST Appointment [facility] Endoscopy [address] [place] [phone] Nicole Kramer MD [address] [facility] [address] [place] [address] (work) Health Maintenance Due Date Last Done Comments Colorectal Cancer Screening: Colonoscopy 1960 Hepatitis A Vaccines (1 of 2 - Risk 2-dose series) 11/17/1978 RSV Immunization Adult Patients (1 - Risk 50-74 years 1-dose series) 11/17/2009 Hepatitis B Vaccines (1 of 3 - Risk 3-dose series) 2019 Abdominal Aortic Aneurysm (AAA) Screen 03/20/2022 Hepatitis C Screening 03/20/2022 Social Influencers of Health Screening 03/20/2022 Depression Screening 04/22/2024 Falls Risk Assessment 11/17/2024 COVID-19 Vaccine ( season) 2024 07/09/2024, 12/20/2021, 04/20/2021, Additional history exists Hypertension/CHF/CAD Annual BMP Blood Test 02/25/2026 02/25/2025, 12/27/2024, 12/13/2024, Additional history exists DTaP,Tdap,and Td Vaccines (2 - Td or Tdap) 06/05/2026 06/05/2016 Cholesterol Screening (Lipid Panel) 12/21/2027 12/20/2022, 12/20/2022, 10/16/2021, Additional history exists Zoster Vaccines Completed 10/16/2021, 12/20/2020 Pneumococcal Vaccine: 50+ Years Completed 07/09/2024, 10/16/2021, 04/11/2018 Influenza Vaccine Completed 12/31/2024, , 04/11/2018, Additional history exists HIB Vaccines Aged Out No longer eligi [...] Procedure Name Priority Date/Time Associated Diagnosis Comments ECG ANNOTATED 02/26/2025 TROPONIN I HIGH SENSITIVITY STAT 02/25/2025 11:49 AM EST ECG 12-LEAD STAT 02/25/2025 10:15 AM EST VENOUS BLOOD GAS STAT 02/25/2025 10:1 2 AM EST C-REACTIVE PROTEIN STAT 02/25/2025 10 :12 AM EST CBC WITH AUTO DIFFERENTIAL STAT 02/25/2025 10:12 AM EST B-TYPE NATRIURETIC PEPTIDE STAT 02/25/2025 10:12 AM EST TROPONIN I HIGH SENSITIVITY STAT 02/25/2025 10:12 AM EST PROCALCITONIN STAT 02/25/2025 10:12 AM EST BASIC METABOLIC PANEL STAT 02/25/2025 10:12 AM EST CBC AND DIFFERENTIAL STAT 02/25/2025 10:12 AM EST XR CHEST 2 VIEWS STAT 02/25/2025 9:22 AM EST RESPIRATORY VIRUS PANEL MOLECULAR STUDY STAT 02/25/2025 9:06 AM EST US ABDOMEN LIMITED Routine 02/15/2025 2: 45 PM EDT Ab[address] chest CT RESPIRATORY VIRUS PANEL MOLECULAR STUDY STAT 02/14/2025 4:34 PM EDT ECG ANNOTATED 01/26/2025 XR CHEST 2 VIEWS STAT 01/25/2025 7:47 AM EDT ECG 12-LEAD STAT 01/25/2025 7:22 AM EDT ECG ANNOTATED 12/22/2024 ECG 12-LEAD STAT 12/20/2024 9:06 AM EDT from Last 3 Months Results * ECG-Annotated (02/26/2025) Only the most recent of3 resultswithin the time period is included. us Provider Onbase MD ECG ORDERABLES Final Result * Troponin I high sensitivity (02/25/2025 11:49 AM EST) Only the most recent of2 resultswithin the time period is included. [facility] High Sensitivity Troponin I 25 <=79 ng/L LAB CHEMISTRY METHOD 02/25/2025 12:27 PM EST [facility] Blood Venous blood specimen / Unknown Venipuncture / Unknown 02/25/2025 11:49 AM EST 02/25/2025 11:55 AM EST Narrative [facility] - 02/25/2025 12:27 PM EST High levels of biotin in samples may falsely decrease hsTroponin values. Use caution when interpreting hsTroponin results in patients taking biotin who exhibit renal impairment (eGFR <60) or in patients taking more than 20 mg/day of biotin. Lynn MARTINEZ LAB BLOOD ORDERABLES Final R esult [facility] [address] [place] [address], * ECG 12 lead (02/25/2025 10:15 AM EST) Only the most recent of3 resultswithin the time period is included. [facility] Ventricular Rate ECG 68 BPM GEMUSE Atrial Rate 68 BPM GEMUSE P-R Interval 168 ms GEMUSE QRS Duration 98 ms GEMUSE Q-T Interval 396 ms GEMUSE QTc 421 ms GEMUSE P Wave [place] 65 degrees GEMUSE R [place] 50 degrees GEMUSE T [place] 65 degrees GEMUSE ECG Interpretation Sinus rhythm with Premature atrial complexes When compared with ECG of 25-JAN-2025 07:22, Premature atrial complexes are now Present Confirmed by TERESITA ISABEL ([id number]) on 02/26/2025 8:10:05 AM GEMUSE 02/25/2025 10:1 5 AM EST 02/26/2025 8:10 AM EST Lynn MARTINEZ ECG ORDERABLES Final Result GEMUSE * Procalcitonin (02/25/2025 10:12 AM EST) Procalcitonin 0.04 <=0.16 ng/mL LAB CHEMISTRY METHOD 02/25/2025 12:10 PM EST [facility] Blood Venous blood specimen / Unknown Venipuncture / Unknown 02/25/2025 10:12 AM EST 02/25/2025 10:18 AM EST Narrative [facility] - 02/25/2025 12:10 PM EST Procalcitonin > 2.00 ng/ml: Procalcitonin Levels above 2.00 ng/ml, on the first day of ICU admission represent a high risk for progression to severe sepsis and/or septic shock. Procalcitonin < 0.50 ng/ml: Procalcitonin levels below 0.50 ng/ml on the first day of ICU admission represent a low risk for progression to severe sepsis and/or septic shock. Concentrations <0.5 ng/mL do not exclude an infection, on account of local ized infections (without systemic signs) which can be associated with such low concentrations, or a systemic infection in its initial stages (<6 hours). Furthermore, increased procalcitonin can occur without infection. PCT concentrations between 0.5 and 2.0 ng/mL should be interpreted taking into account the patient's history. It is recommended to retest PCT within 6-24 hours if any concentrations <2.0 ng/mL are obtained. Lynn MARTINEZ LAB BLOOD ORDERABLES Final R esult [facility] [address] [place] [address], * (ABNORMAL) CBC auto differential (02/25/2025 10:12 AM EST) [facility] WBC 5.9 4.8 - 10.8 K/mcL LAB HEMETOLOGY METHOD 02/25/2025 10:29 AM [facility] RBC 4.50 4.50 - 5.50 M/mcL LAB HEMETOLOGY METHOD 02/25/2025 10:29 AM [facility] Hemoglobin 13.6 13.5 - 17.5 g/dL LAB HEMETOLOGY METHOD 02/25/2025 10:29 AM [facility] Hematocrit 40.5(L) 42.0 - 54.0 % LAB HEMETOLOGY METHOD 02/25/2025 10:29 AM [facility] MCV 90.8 79.0 - 98.0 FL LAB HEMETOLOGY METHOD 02/25/2025 10:29 AM [facility] MCH 30.5 27.0 - 32.0 pcg LAB HEMETOLOGY METHOD 02/25/2025 10:29 AM [facility] MCHC 33.6 32.0 - 37.0 g/dL LAB HEMETOLOGY METHOD 02/25/2025 10:29 AM [facility] RDW 12.4 11.0 - 15.0 % LAB HEMETOLOGY METHOD 02/25/2025 10:29 AM [facility] Platelets 197 130 - 400 K/mcL LAB HEMETOLOGY METHOD 02/25/2025 10:29 AM [facility] MPV 9.7 7.0 - 11.0 FL LAB HEMETOLOGY METHOD 02/25/2025 10:29 AM [facility] NRBC 0.0 <1.0 % LAB HEMETOLOGY METHOD 02/25/2025 10:29 AM [facility] NRBC Absolute 0.00 <0.10 K/mcL LAB HEMETOLOGY METHOD 02/25/2025 10:29 AM [facility] Neutrophils Relative 56.7 % LAB HEMETOLOGY METHOD 02/25/2025 10:29 AM [facility] Lymphocytes Relative 23.4 % LAB HEMETOLOGY METHOD 02/25/2025 10:29 AM [facility] Monocytes Relative 6.8 % LAB HEMETOLOGY METHOD 02/25/2025 10:29 AM [facility] Eosinophils Relative 12.0 % LAB HEMETOLOGY METHOD 02/25/2025 10:29 AM [facility] Basophils Relative 0.8 % LAB HEMETOLOGY METHOD 02/25/2025 10:29 AM [facility] Immature Granulocytes Relative 0.3 % LAB HEMETOLOGY METHOD 02/25/2025 10:29 AM [facility] Neutrophils Absolute 3.34 1.50 - 7.00 K/mcL LAB HEMETOLOGY METHOD 02/25/2025 10:29 AM [facility] Lymphocytes Absolute 1.38 1.00 - 5.00 K/mcL LAB HEMETOLOGY METHOD 02/25/2025 10:29 AM [facility] Monocytes Absolute 0.40 0.20 - 1.00 K/mcL LAB HEMETOLOGY METHOD 02/25/2025 10:29 AM [facility] Eosinophils Absolute 0.71(H) 0.00 - 0.50 K/mcL LAB HEMETOLOGY METHOD 02/25/2025 10:29 AM [facility] Basophils Absolute 0.05 0.00 - 0.20 K/mcL LAB HEMETOLOGY METHOD 02/25/2025 10:29 AM [facility] Immature Granulocytes Absolute 0.02 0.00 - 0.03 K/mcL LAB HEMETOLOGY METHOD 02/25/2025 10:29 AM [facility] Blood Venous blood specimen / Unknown Venipuncture / Unknown 02/25/2025 10:12 AM EST 02/25/2025 10:18 AM EST Lynn MARTINEZ LAB BLOOD ORDERABLES Final R esult Performing Organization Address City/[facility]/ZIP Co de Phone Number [facility] [address] [place] [address], [place] [phone] * C-reactive protein (02/25/2025 10:12 AM EST) C-Reactive Protein <0.29 <=0.50 mg/dL LAB CHEMISTRY METHOD 02/25/2025 10:50 AM EST [facility] Blood Venous blood specimen / Unknown Venipuncture / Unknown 02/25/2025 10:12 AM EST 02/25/2025 10:18 AM EST Lynn MARTINEZ LAB BLOOD ORDERABLES Final R esult Performing Organization Address City/[facility]/ZIP Co de Phone Number [facility] [address] [place] [address], [place] [phone] * B-type natriuretic peptide (02/25/2025 10:12 AM EST) BNP 11 <=100 pcg/mL LAB CHEMISTRY METHOD 02/25/2025 11:14 AM EST [facility] Blood Venous blood specimen / Unknown Venipuncture / Unknown 02/25/2025 10:12 AM EST 02/25/2025 10:18 AM EST Lynn MARTINEZ LAB BLOOD ORDERABLES Final R esult Performing Organization Address City/[facility]/ZIP Co de Phone Number [facility] [address] [place] [address], [place] [phone] * (ABNORMAL) Venous blood gas (02/25/2025 10:12 AM EST) pH, Angelito 7.48(H) 7.32 - 7.42 pH 02/25/2025 10:19 AM [facility] pCO2, Angelito 36(L) 41 - 51 mmHg 02/25/2025 10:19 AM [facility] pO2, Angelito 71(H) 25 - 40 mmHg 02/25/2025 10:19 AM [facility] HCO3, Venous 27.5(H) 22.0 - 26.0 mmol/L 02/25/2025 10:19 AM [facility] O2 Sat, Angelito 96.9 % 02/25/2025 10:19 AM [facility] Base Excess, Angelito 3.4(H) -2.0 - 2.0 mmol/L 02/25/2025 10:19 AM [facility] Blood Venous blood specimen / Unknown Venipuncture / Unknown 02/25/2025 10:12 AM EST 02/25/2025 10:16 AM EST Lynn MARTINEZ LAB BLOOD ORDERABLES Final R esult [facility] [address] [place] [address], * (ABNORMAL) Basic metabolic panel (02/25/2025 10:12 AM EST) Sodium 138 133 - 145 mmol/L LAB CHEMISTRY METHOD 02/25/2025 10:50 AM [facility] Potassium 3.3(L) 3.5 - 5.5 mmol/L LAB CHEMISTRY METHOD 02/25/2025 10:50 AM [facility] Chloride 107 96 - 110 mmol/L LAB CHEMISTRY METHOD 02/25/2025 10:50 AM [facility] CO2 26 21 - 32 mmol/L LAB CHEMISTRY METHOD 02/25/2025 10:50 AM [facility] Anion Gap 5 3 - 11 LAB CHEMISTRY METHOD 02/25/2025 10:50 AM [facility] Glucose 93 70 - 100 mg/dL LAB CHEMISTRY METHOD 02/25/2025 10:50 AM [facility] BUN 13 5 - 25 mg/dL LAB CHEMISTRY METHOD 02/25/2025 10:50 AM [facility] Creatinine 0.59(L) 0.70 - 1.30 mg/dL LAB CHEMISTRY METHOD 02/25/2025 10:50 AM [facility] eGFR 108 >=60 mL/min/1. 73m2 LAB CHEMISTRY METHOD 02/25/2025 10:50 AM [facility] Comment:Calculation based on the Chronic Kidney Disease Epidemiology Collaboration (CKD-EPI) equation refit without adjustment for race. BUN/Creatinine Ratio 22.0 LAB CHEMISTRY METHOD 02/25/2025 10:50 AM [facility] Calcium 8.6 8.5 - 10.5 mg/dL LAB CHEMISTRY METHOD 02/25/2025 10:50 AM [facility] Blood Venous blood specimen / Unknown Venipuncture / Unknown 02/25/2025 10:12 AM EST 02/25/2025 10:18 AM EST us Lynn MARTINEZ LAB BLOOD ORDERABLES Final R esult [facility] [address] [place] [address], * XR Chest 2 Views (02/25/2025 9:22 AM EST) Only the most recent of2 resultswithin the time period is included. Anatomical Region Laterality Modality Body Radiographic Minnie ging 02/25/2025 9:36 AM EST Impressions 02/25/2025 9:37 AM EST No acute findings. -------- FINAL REPORT -------- Dictated By: Carl Oliveira Dictated Date: 02/25/2025 09:36 ET Assigned Physician: Carl Oliveira Reviewed and Electronically Signed By: Carl Oliveira Signed Date: 02/25/2025 09:37 ET Workstation ID: [id number] Transcribed By: Self Edit Transcribed Date: 02/25/2025 09:36 ET Narrative 02/25/2025 9:37 AM EST PROCEDURE: PA and lateral radiographs of the chest. HISTORY: dyspnea. COMPARISON: 01/25/2025. FINDINGS: Lungs are hyperinflated but clear. Bones appear demineralized. Pleural spaces, pulmonary vasculature, and cardiomediastinal contours are normal. Procedure Note Carl Oliveira MD - 02/25/2025 PROCEDURE: PA and lateral radiographs of the chest. HISTORY: dyspnea. COMPARISON: 01/25/2025. FINDINGS: Lungs are hyperinflated but clear. Bones appear demineralized. Pleuralspaces, pulmonary vasculature, and cardiomediastinal contours arenormal. IMPRESSION: No acute findings. -------- FINAL REPORT -------- Dictated By: Carl Oliveira Dictated Date: 02/25/2025 09:36 ET Assigned Physician: Carl Oliveira Reviewed and Electronically Signed By: Carl Oliveira Signed Date: 02/25/2025 09:37 ET Workstation ID: [id number] Transcribed By: Self Edit Transcribed Date: 02/25/2025 09:36 ET Yefri Winter MD IMG XR PROCEDURES Final Result * Respiratory virus panel molecular study (02/25/2025 9:06 AM EST) Only the most recent of2 resultswithin the time period is included. Adenovirus Detection by PCR Not Detected Not Detected LAB MICROBIOLOGY METHOD 02/25/2025 10:42 AM EST [facility] Influenza A PCR Not Detected Not Detected LAB MICROBIOLOGY METHOD 02/25/2025 10:42 AM [facility] Influenza B PCR Not Detected Not Detected LAB MICROBIOLOGY METHOD 02/25/2025 10:42 AM [facility] Coronavirus 229E Not Detected Not Detected LAB MICROBIOLOGY METHOD 02/25/2025 10:42 AM [facility] Coronavirus HKU1 Not Detected Not Detected LAB MICROBIOLOGY METHOD 02/25/2025 10:42 AM [facility] Coronavirus OC43 Not Detected Not Detected LAB MICROBIOLOGY METHOD 02/25/2025 10:42 AM [facility] Coronavirus NL63 Not Detected Not Detected LAB MICROBIOLOGY METHOD 02/25/2025 10:42 AM [facility] Parainfluenza Virus 1 Not Detected Not Detected LAB MICROBIOLOGY METHOD 02/25/2025 10:42 AM [facility] Parainfluenza Virus 2 Not Detected Not Detected LAB MICROBIOLOGY METHOD 02/25/2025 10:42 AM [facility] Parainfluenza Virus 3 Not Detected Not Detected LAB MICROBIOLOGY METHOD 02/25/2025 10:42 AM [facility] Parainfluenza Virus 4 Not Detected Not Detected LAB MICROBIOLOGY METHOD 02/25/2025 10:42 AM [facility] RSV PCR Not Detected Not Detected LAB MICROBIOLOGY METHOD 02/25/2025 10:42 AM [facility] Human Metapneumovirus A and B Not Detected Not Detected LAB MICROBIOLOGY METHOD 02/25/2025 10:42 AM [facility] Rhinovirus/Entero virus Not Detected Not Detected LAB MICROBIOLOGY METHOD 02/25/2025 10:42 AM [facility] Bordetella pertussis Not Detected Not Detected LAB MICROBIOLOGY METHOD 02/25/2025 10:42 AM [facility] Bordetella parapertussis Not Detected Not Detected LAB MICROBIOLOGY METHOD 02/25/2025 10:42 AM [facility] Mycoplasma pneumo by PCR Not Detected Not Detected LAB MICROBIOLOGY METHOD 02/25/2025 10:42 AM EST [facility] Chlamydia pneumoniae Not Detected Not Detected LAB MICROBIOLOGY METHOD 02/25/2025 10:42 AM EST [facility] SARS COV-2 Not Detected Not Detected LAB MICROBIOLOGY METHOD 02/25/2025 10:42 AM [facility] Swab Both anterior nares / Unknown Non-blood Collection / Unknown 02/25/2025 9:06 AM EST 02/25/2025 9:30 AM EST [facility] - 02/25/2025 10:42 AM EST Testing was performed using the [employer] Respiratory Pathogen PCR Assay. All results must be correlated with the clinical findings. Results should not be used as the sole basis for diagnosis. False Negative results may occur from the presence of sequence variants in the region targeted by the assay or the presence of inhibitors. Results may be affected by concurrent antiviral/antimicrobial therapy or levels of organisms that are below the limit of detection. us Yefri Winter MD LAB MICROBIOLOGY - GENERAL ORDER ROSENDO Final Result [facility] [address] [place] [address], [place] [phone] * US Abdomen Limited (02/15/2025 2:45 PM EDT) Anatomical Region Laterality Modality Body Ultrasound 02/18/2025 10:5 8 AM EDT Impressions 02/18/2025 11:03 AM EDT Echogenic lesion in the right hepatic lobe at the dome measuring up to 2.4 cm, correlating with findings noted on recent CT. While the sonographic features are not definitive, the echogenic appearance and stability dating back to 07/25/2020 suggest that this represents a hemangioma. -------- FINAL REPORT -------- Dictated By: Carl Oliveira Dictated Date: 02/18/2025 10:58 ET Assigned Physician: Carl Oliveira Reviewed and Electronically Signed By: Carl Oliveira Signed Date: 02/18/2025 11:03 ET Workstation ID: [id number] Transcribed By: Self Edit Transcribed Date: 02/18/2025 10:58 ET Narrative 02/18/2025 11:03 AM EDT PROCEDURE: Right upper quadrant ultrasound. HISTORY: abnormal chest ct. COMPARISON: Chest CT 10/16/2024. Prior CTs dating back to July 2020. TECHNIQUE: Grayscale, color Doppler, and spectral Doppler ultrasound evaluation of the right upper quadrant of the abdomen. FINDINGS: LIVER: Normal echotexture. There is an echogenic lesion in the right lobe at the dome measuring 2.4 x 1.7 x 1.2 cm which correlates with a finding described on the 09/26/[address] report. Normal flow in the main portal vein. BILIARY: 4 mm gallbladder polyp. Negative sonographic Jimenez sign. Normal caliber biliary tree with no ductal filling defect. PANCREAS: Visualized portions are normal. RIGHT KIDNEY: Normal size and echotexture. No hydronephrosis. Upper pole cortical cyst measuring up to 3 cm with a solitary septation. Procedure Note Carl Oliveira MD - 02/18/2025 PROCEDURE: Right upper quadrant ultrasound. HISTORY: abnormal chest ct. COMPARISON: Chest CT 10/16/2024. Prior CTs dating back to July 2020. TECHNIQUE: Grayscale, color Doppler, and spectral Doppler ultrasoundevaluation of the right upper quadrant of the abdomen. FINDINGS: LIVER: Normal echotexture. There is an echogenic lesion in the right lobeat the dome measuring 2.4 x 1.7 x 1.2 cm which correlates with a findingdescribed on the 09/26/[address] report. Normal flow in the mainportal vein. BILIARY: 4 mm gallbladder polyp. Negative sonographic Jimenez sign. Normalcaliber biliary tree with no ductal filling defect. PANCREAS: Visualized portions are normal. RIGHT KIDNEY: Normal size and echotexture. No hydronephrosis. Upper polecortical cyst measuring up to 3 cm with a solitary septation. IMPRESSION: Echogenic lesion in the right hepatic lobe at the dome measuring up to 2.4cm, correlating with findings noted on recent CT. While the sonographicfeatures are not definitive, the echogenic appearance and stability datingback to 07/25/2020 suggest that this represents a hemangioma. -------- FINAL REPORT -------- Dictated By: Carl Oliveira Dictated Date: 02/18/2025 10:58 ET Assigned Physician: Carl Oliveira Reviewed and Electronically Signed By: Carl Oliveira Signed Date: 02/18/2025 11:03 ET Workstation ID: [id number] Transcribed By: Self Edit Transcribed Date: 02/18/2025 10:58 ET us Wilian Marroquin [employer] OFFICER IMG US PROCEDURES Final Re sult from Last 3 Months Insurance [facility] Care Teams Freight Caller Relationship Specialty Start Date End Date Daniel Maria PA [address] [place] [id number] PCP - General Physician Coater [place]ate 09/12/24
[2025-03-08 06:07] LABS: NT Pro B Type Natriuretic Pept 47.3 pg/mL (<300)
[2025-03-08] MEDS: Albuterol/Iprat 2.5/0.5MG 3 ML AMPUL.NEB INHALE (06:12)
[2025-03-08 06:13] VITALS: PULSE 75; RESP 16; O2SAT 95
[2025-03-08 06:32] VITALS: BP 147/83; PULSE 72; RESP 16; TEMP 36.7; O2SAT 95
== END 2025-03-08 06:39 | disposition home or self-care (01) ==
PROVIDERS: Emergency Provider Emergency Medicine; PCP Dentist General Practice
DX: J44.9 Chronic obstructive pulmonary disease, unspecified (principal); R06.02 Shortness of breath; R05.9 Cough, unspecified
CPT/HCPCS: 36415; 71046; 80053; 83880; 85025; 94640; 99284

== ENCOUNTER → 2025-03-08 04:25 | Outpatient (BNV) | payer OTHER, SELFPAY | PROVIDERS: Emergency Provider Emergency Medicine; PCP Dentist General Practice; Visit Provider Radiology Diagnostic Radiology | DX: R06.02 Shortness of breath (principal) | CPT/HCPCS: 71046 ==